=== PATIENT | male | born 1955 | race Hispanic/Latino ===

== ENCOUNTER 2018-01-27 08:01 | Inpatient (IN) | payer MEDICARE, OTHER, MEDICAID ==
[2018-01-27 09:09] LABS: BASO % 0.7 % (0.0-1.0); EOS # 0.2 10^3/uL (0.0-0.50); EOS % 2.6 % (0.0-3.0); HEMATOCRIT 32.8 % (42.0-52.0); HEMOGLOBIN 10.1 g/dl (13.5-17.5); IMMATURE GRANULOCYTE % 0.3 % (0-3.0); LYMPH # 0.7 10^3/uL (1.5-4.5); LYMPH % 11.6 % (24.0-44.0); MEAN CORPUSCULAR HEMOGLOBIN 27.4 pg (27.0-33.0); MEAN CORPUSCULAR HGB CONC 30.8 g/dl (32.0-36.5); MEAN CORPUSCULAR VOLUME 89.1 fl (80.0-96.0); MONO # 0.5 10^3/uL (0.0-0.8); MONO % 9.3 % (0.0-5.0); NEUTROPHILS # 4.4 10^3/uL (1.8-7.7); NEUTROPHILS % 75.5 % (36.0-66.0); PLATELET COUNT, AUTOMATED 265 10^3/uL (150-450); RED BLOOD COUNT 3.68 10^6/uL (4.30-6.10); RED CELL DISTRIBUTION WIDTH 20.9 % (11.5-14.5); VENOUS BASE EXCESS -7.6 (-2.0-2.0); VENOUS HCO3 19.5 MEQ/L (23.0-27.0); VENOUS PARTIAL PRESSURE CO2 46.5 mmHg (38.0-50.0); VENOUS PARTIAL PRESSURE O2 36.6 mmHg (30.0-50.0); VENOUS STANDARD HCO3 17.5 MEQ/L; VENOUS TOTAL CO2 20.9 MEQ/L (24.0-28.0); WHITE BLOOD COUNT 5.8 10^3/uL (4.0-10.0)
[2018-01-27 09:21] LABS: LACTIC ACID SEPSIS PROTOCOL 1.7 MMOL/L (0.4-2.0)
[2018-01-27 09:29] LABS: ANION GAP 14 MEQ/L (8-16); BLOOD UREA NITROGEN 124 MG/DL (7-18); CALCIUM LEVEL 8.2 MG/DL (8.8-10.2); CARBON DIOXIDE LEVEL 21 MEQ/L (21-32); CHLORIDE LEVEL 102 MEQ/L (98-107); CPK CREATINE PHOSPHOKINASE 106 U/L (39-308); GLOMERULAR FILTRATION RATE 4.5 (>49); GLUCOSE, FASTING 121 MG/DL (70-100); MB/CK RELATIVE INDEX 20.19 (< OR =4); SODIUM LEVEL 137 MEQ/L (136-145); TROPONIN I < 0.02 NG/ML (< 0.10)
[2018-01-27 09:32] LABS: INR 1.38; PROTHROMBIN TIME 17.2 SECONDS (12.1-14.4)
[2018-01-27 09:33] LABS: PARTIAL THROMBOPLASTIN TIME 40.8 SECONDS (25.4-37.6)
[2018-01-27 09:46] LABS: ERYTHROCYTE SEDIMENTATION RATE 85 mm/hr (0-20)
[2018-01-27 10:52] LABS: BEDSIDE GLUCOSE 98 MG/DL (80-115)
[2018-01-27] MEDS: DEXTROSE 50% 50 ML SYRINGE IV ×4 (10:55→18:44)
[2018-01-27] MEDS: HumuLIN R (REGULAR) INSULIN (NovoLIN R) **100U/ML** PER UNIT IV (10:55)
[2018-01-27] MEDS: CALCIUM CHLORIDE 10% 1 GM in D5W 100 ML IV (11:04)
[2018-01-27] MEDS ORDERED: GLUCOSE 4 GM CHEW TABLET PO (11:15)
[2018-01-27] MEDS ORDERED: GLUCAGON FOR INJ 1 MG VIAL (J1610) SC (11:15)
[2018-01-27 12:29] LABS: ESTIMATED AVERAGE GLUCOSE 134 MG/DL (60-110); HEMOGLOBIN A1c 6.3 %
[2018-01-27] MEDS ORDERED: SLF 3 ML SYR IV (12:30)
[2018-01-27 12:31] LABS: BEDSIDE GLUCOSE 47 MG/DL (80-115)
[2018-01-27] MEDS: HumaLOG INSULIN (NovoLOG) PER UNIT SC (12:37)
[2018-01-27] MEDS: LISINOPRIL 10 MG TAB PO (12:37)
[2018-01-27] MEDS: ASPIRIN 81 MG ENTERIC TAB PO (12:37)
[2018-01-27] MEDS: CLOPIDOGREL 75 MG TAB PO (12:37)
[2018-01-27] MEDS: METOPROLOL SUCC (TopROL XL) 50MG **XL** TAB PO (12:38)
[2018-01-27] MEDS: HEPARIN SOD (PORCINE) 5000 UNITS/ML VIAL SQ ×2 (12:38→20:31)
[2018-01-27] MEDS: SLF 3 ML SYR IV ×2 (14:10→20:31)
[2018-01-27] MEDS: HEPARIN 1,000 UNITS/ML 10ML VIAL (FOR RADIOLOGY& DIALYSIS ONLY) XX (16:30)
[2018-01-27] MEDS: HEPARIN 1,000 UNITS/ML 10ML VIAL (FOR RADIOLOGY& DIALYSIS ONLY) IV (16:30)
[2018-01-27 18:30] LABS: BEDSIDE GLUCOSE 52 MG/DL (80-115)
[2018-01-27] MEDS: (RENVELA) SEVELAMER **CARBONate** 800 MG TAB PO (18:44)
[2018-01-27 20:41] LABS: BEDSIDE GLUCOSE 142 MG/DL (80-115)
[2018-01-27] MEDS ORDERED: HumaLOG INSULIN (NovoLOG) PER UNIT SC (21:00)
[2018-01-27 22:51] LABS: PHOSPHORUS LEVEL 9.8 MG/DL (2.5-4.9)
[2018-01-27 23:19] LABS: BEDSIDE GLUCOSE 133 MG/DL (80-115)
[2018-01-28 01:41] LABS: BEDSIDE GLUCOSE 120 MG/DL (80-115)
[2018-01-28 05:41] LABS: HEMATOCRIT 30.4 % (42.0-52.0); HEMOGLOBIN 9.8 g/dl (13.5-17.5); MEAN CORPUSCULAR HEMOGLOBIN 27.9 pg (27.0-33.0); MEAN CORPUSCULAR HGB CONC 32.2 g/dl (32.0-36.5); MEAN CORPUSCULAR VOLUME 86.6 fl (80.0-96.0); PLATELET COUNT, AUTOMATED 231 10^3/uL (150-450); RED BLOOD COUNT 3.51 10^6/uL (4.30-6.10); RED CELL DISTRIBUTION WIDTH 20.8 % (11.5-14.5); WHITE BLOOD COUNT 5.5 10^3/uL (4.0-10.0)
[2018-01-28] MEDS: SLF 3 ML SYR IV ×3 (05:59→21:46)
[2018-01-28] MEDS: HEPARIN SOD (PORCINE) 5000 UNITS/ML VIAL SQ ×3 (06:00→21:46)
[2018-01-28 06:07] LABS: ALBUMIN 2.3 GM/DL (3.2-5.2); ALBUMIN/GLOBULIN RATIO 0.35 (1.00-1.93); ALKALINE PHOSPHATASE 344 U/L (45-117); ALT/SGPT 18 U/L (12-78); ANION GAP 10 MEQ/L (8-16); AST/SGOT 17 U/L (7-37); BILIRUBIN,DIRECT 0.5 MG/DL (0.0-0.2); BILIRUBIN,TOTAL 0.8 MG/DL (0.2-1.0); BLOOD UREA NITROGEN 53 MG/DL (7-18); CALCIUM LEVEL 8.3 MG/DL (8.8-10.2); CARBON DIOXIDE LEVEL 26 MEQ/L (21-32); CHLORIDE LEVEL 103 MEQ/L (98-107); CREATININE FOR GFR 7.25 MG/DL (0.70-1.30); GLOMERULAR FILTRATION RATE 8.2 (>49); GLUCOSE, FASTING 84 MG/DL (70-100); MAGNESIUM LEVEL 2.4 MG/DL (1.8-2.4); POTASSIUM SERUM 4.8 MEQ/L (3.5-5.1); SODIUM LEVEL 139 MEQ/L (136-145); TOTAL PROTEIN 8.9 GM/DL (6.4-8.2)
[2018-01-28] MEDS: (RENVELA) SEVELAMER **CARBONate** 800 MG TAB PO ×3 (08:53→17:07)
[2018-01-28] MEDS: CLOPIDOGREL 75 MG TAB PO (08:53)
[2018-01-28] MEDS: METOPROLOL SUCC (TopROL XL) 50MG **XL** TAB PO (08:53)
[2018-01-28] MEDS: ASPIRIN 81 MG ENTERIC TAB PO (08:55)
[2018-01-28] MEDS: LISINOPRIL 10 MG TAB PO (08:55)
[2018-01-28] MEDS: SANTYL OINT 30GM TOP (09:00)
[2018-01-28] MEDS: ACETAMINOPHEN TAB 650MG DOSE (2X325MG) PO (09:49)
[2018-01-28] MEDS ORDERED: VANCOMYCIN HCL 1,000 MG, VIAL MATE ADAPTER 1 EACH in D5W 250 ML IV (14:00)
[2018-01-28 14:59] LABS: BEDSIDE GLUCOSE 132 MG/DL (80-115)
[2018-01-28] MEDS: PIPERACILLIN/TAZOBACTAM SOD 2.25 GM in D5W MINI-BAG PLUS 50 ML IV (15:39)
[2018-01-28] MEDS: ONDANSETRON 4MG/2ML VIAL (J2405) IV (16:12)
[2018-01-28] MEDS: VANCOMYCIN HCL 1,000 MG, VIAL MATE ADAPTER 1 EACH in D5W 250 ML IV (17:07)
[2018-01-28 18:57] LABS: BEDSIDE GLUCOSE 157 MG/DL (80-115)
[2018-01-28 23:51] LABS: BEDSIDE GLUCOSE 75 MG/DL (80-115)
[2018-01-29 00:23] LABS: BEDSIDE GLUCOSE 120 MG/DL (80-115)
[2018-01-29] MEDS: PIPERACILLIN/TAZOBACTAM SOD 2.25 GM in D5W MINI-BAG PLUS 50 ML IV ×2 (04:25→16:00)
[2018-01-29] MEDS: SLF 3 ML SYR IV ×3 (05:35→21:22)
[2018-01-29] MEDS: HEPARIN SOD (PORCINE) 5000 UNITS/ML VIAL SQ ×3 (05:36→21:22)
[2018-01-29 06:03] LABS: HEMATOCRIT 33.8 % (42.0-52.0); HEMOGLOBIN 10.3 g/dl (13.5-17.5); MEAN CORPUSCULAR HEMOGLOBIN 27.5 pg (27.0-33.0); MEAN CORPUSCULAR HGB CONC 30.5 g/dl (32.0-36.5); MEAN CORPUSCULAR VOLUME 90.4 fl (80.0-96.0); PLATELET COUNT, AUTOMATED 203 10^3/uL (150-450); RED BLOOD COUNT 3.74 10^6/uL (4.30-6.10); RED CELL DISTRIBUTION WIDTH 21.6 % (11.5-14.5); WHITE BLOOD COUNT 4.1 10^3/uL (4.0-10.0)
[2018-01-29 06:50] LABS: ALBUMIN 2.1 GM/DL (3.2-5.2); ALBUMIN/GLOBULIN RATIO 0.32 (1.00-1.93); ALKALINE PHOSPHATASE 311 U/L (45-117); ALT/SGPT 18 U/L (12-78); ANION GAP 13 MEQ/L (8-16); AST/SGOT 24 U/L (7-37); BILIRUBIN,DIRECT 0.4 MG/DL (0.0-0.2); BILIRUBIN,TOTAL 0.7 MG/DL (0.2-1.0); BLOOD UREA NITROGEN 59 MG/DL (7-18); CALCIUM LEVEL 8.4 MG/DL (8.8-10.2); CARBON DIOXIDE LEVEL 20 MEQ/L (21-32); CHLORIDE LEVEL 104 MEQ/L (98-107); CREATININE FOR GFR 8.07 MG/DL (0.70-1.30); GLOMERULAR FILTRATION RATE 7.3 (>49); GLUCOSE, FASTING 77 MG/DL (70-100); MAGNESIUM LEVEL 2.6 MG/DL (1.8-2.4); POTASSIUM SERUM 5.4 MEQ/L (3.5-5.1); SODIUM LEVEL 137 MEQ/L (136-145); TOTAL PROTEIN 8.7 GM/DL (6.4-8.2)
[2018-01-29] MEDS: (RENVELA) SEVELAMER **CARBONate** 800 MG TAB PO ×4 (08:00→18:00)
[2018-01-29] MEDS: CLOPIDOGREL 75 MG TAB PO ×2 (09:00→09:01)
[2018-01-29] MEDS: ASPIRIN 81 MG ENTERIC TAB PO ×2 (09:00→09:01)
[2018-01-29] MEDS: METOPROLOL SUCC (TopROL XL) 50MG **XL** TAB PO ×2 (09:00)
[2018-01-29] MEDS: LISINOPRIL 10 MG TAB PO ×2 (09:00→09:01)
[2018-01-29] MEDS: SANTYL OINT 30GM TOP (09:01)
[2018-01-29] MEDS: HEPARIN 1,000 UNITS/ML 10ML VIAL (FOR RADIOLOGY& DIALYSIS ONLY) XX (12:00)
[2018-01-29] MEDS: HEPARIN 1,000 UNITS/ML 10ML VIAL (FOR RADIOLOGY& DIALYSIS ONLY) IV (12:00)
[2018-01-29 12:06] LABS: BEDSIDE GLUCOSE 101 MG/DL (80-115)
[2018-01-29] MEDS: **VANCO AFTER HD** MISC XX (16:00)
[2018-01-29 20:07] LABS: BEDSIDE GLUCOSE 140 MG/DL (80-115)
[2018-01-30] MEDS: PIPERACILLIN/TAZOBACTAM SOD 2.25 GM in D5W MINI-BAG PLUS 50 ML IV ×2 (03:47→15:19)
[2018-01-30 06:02] LABS: HEMATOCRIT 30.9 % (42.0-52.0); HEMOGLOBIN 9.3 g/dl (13.5-17.5); MEAN CORPUSCULAR HEMOGLOBIN 27.1 pg (27.0-33.0); MEAN CORPUSCULAR HGB CONC 30.1 g/dl (32.0-36.5); MEAN CORPUSCULAR VOLUME 90.1 fl (80.0-96.0); PLATELET COUNT, AUTOMATED 215 10^3/uL (150-450); RED BLOOD COUNT 3.43 10^6/uL (4.30-6.10); RED CELL DISTRIBUTION WIDTH 21.2 % (11.5-14.5); WHITE BLOOD COUNT 5.5 10^3/uL (4.0-10.0)
[2018-01-30] MEDS: SLF 3 ML SYR IV ×3 (06:23→21:10)
[2018-01-30] MEDS: HEPARIN SOD (PORCINE) 5000 UNITS/ML VIAL SQ ×3 (06:23→21:10)
[2018-01-30 06:38] LABS: ALBUMIN 2.1 GM/DL (3.2-5.2); ALBUMIN/GLOBULIN RATIO 0.33 (1.00-1.93); ALKALINE PHOSPHATASE 340 U/L (45-117); ALT/SGPT 13 U/L (12-78); ANION GAP 8 MEQ/L (8-16); AST/SGOT 18 U/L (7-37); BILIRUBIN,DIRECT 0.5 MG/DL (0.0-0.2); BILIRUBIN,TOTAL 0.8 MG/DL (0.2-1.0); BLOOD UREA NITROGEN 30 MG/DL (7-18); CALCIUM LEVEL 7.9 MG/DL (8.8-10.2); CARBON DIOXIDE LEVEL 28 MEQ/L (21-32); CHLORIDE LEVEL 102 MEQ/L (98-107); CREATININE FOR GFR 5.25 MG/DL (0.70-1.30); GLUCOSE, FASTING 143 MG/DL (70-100); MAGNESIUM LEVEL 2.2 MG/DL (1.8-2.4); POTASSIUM SERUM 4.4 MEQ/L (3.5-5.1); SODIUM LEVEL 138 MEQ/L (136-145); TOTAL PROTEIN 8.5 GM/DL (6.4-8.2)
[2018-01-30] MEDS: (RENVELA) SEVELAMER **CARBONate** 800 MG TAB PO ×3 (07:46→17:05)
[2018-01-30] MEDS: METOPROLOL SUCC (TopROL XL) 50MG **XL** TAB PO (08:41)
[2018-01-30] MEDS: LISINOPRIL 10 MG TAB PO (08:42)
[2018-01-30] MEDS: SANTYL OINT 30GM TOP (08:42)
[2018-01-30] MEDS: ASPIRIN 81 MG ENTERIC TAB PO (08:42)
[2018-01-30] MEDS: CLOPIDOGREL 75 MG TAB PO (08:42)
[2018-01-30] MEDS: **VANCO AFTER HD** MISC XX (15:20)
[2018-01-30] MEDS ORDERED: DARBEPOETIN 100 MCG/0.5 ML *DIALYSIS* SYRINGE (J0882) IV (15:45)
[2018-01-31] MEDS: PIPERACILLIN/TAZOBACTAM SOD 2.25 GM in D5W MINI-BAG PLUS 50 ML IV ×2 (04:33→16:31)
[2018-01-31] MEDS: HEPARIN SOD (PORCINE) 5000 UNITS/ML VIAL SQ ×3 (06:11→21:43)
[2018-01-31] MEDS: SLF 3 ML SYR IV ×3 (06:12→21:44)
[2018-01-31] MEDS: (RENVELA) SEVELAMER **CARBONate** 800 MG TAB PO ×3 (06:12→18:05)
[2018-01-31] MEDS: CLOPIDOGREL 75 MG TAB PO (06:13)
[2018-01-31] MEDS: METOPROLOL SUCC (TopROL XL) 50MG **XL** TAB PO (06:13)
[2018-01-31 06:23] LABS: HEMATOCRIT 31.2 % (42.0-52.0); HEMOGLOBIN 9.8 g/dl (13.5-17.5); MEAN CORPUSCULAR HEMOGLOBIN 27.7 pg (27.0-33.0); MEAN CORPUSCULAR HGB CONC 31.4 g/dl (32.0-36.5); MEAN CORPUSCULAR VOLUME 88.1 fl (80.0-96.0); PLATELET COUNT, AUTOMATED 226 10^3/uL (150-450); RED BLOOD COUNT 3.54 10^6/uL (4.30-6.10); RED CELL DISTRIBUTION WIDTH 21.2 % (11.5-14.5)
[2018-01-31 06:48] LABS: ALBUMIN 2.2 GM/DL (3.2-5.2); ALBUMIN/GLOBULIN RATIO 0.34 (1.00-1.93); ALKALINE PHOSPHATASE 316 U/L (45-117); ALT/SGPT 13 U/L (12-78); ANION GAP 11 MEQ/L (8-16); AST/SGOT 21 U/L (7-37); BILIRUBIN,DIRECT 0.5 MG/DL (0.0-0.2); BILIRUBIN,TOTAL 0.8 MG/DL (0.2-1.0); BLOOD UREA NITROGEN 40 MG/DL (7-18); C REACTIVE PROTEIN QUANTITATIV 8.19 MG/DL (0.00-0.30); CALCIUM LEVEL 8.4 MG/DL (8.8-10.2); CARBON DIOXIDE LEVEL 27 MEQ/L (21-32); CHLORIDE LEVEL 101 MEQ/L (98-107); CREATININE FOR GFR 6.55 MG/DL (0.70-1.30); GLOMERULAR FILTRATION RATE 9.3 (>49); GLUCOSE, FASTING 80 MG/DL (70-100); MAGNESIUM LEVEL 2.5 MG/DL (1.8-2.4); POTASSIUM SERUM 4.8 MEQ/L (3.5-5.1); SODIUM LEVEL 139 MEQ/L (136-145); TOTAL PROTEIN 8.7 GM/DL (6.4-8.2); VANCOMYCIN RANDOM 10.5 UG/ML
[2018-01-31] MEDS: HEPARIN 1,000 UNITS/ML 10ML VIAL (FOR RADIOLOGY& DIALYSIS ONLY) IV (08:25)
[2018-01-31] MEDS: HEPARIN 1,000 UNITS/ML 10ML VIAL (FOR RADIOLOGY& DIALYSIS ONLY) XX (10:45)
[2018-01-31] MEDS: ASPIRIN 81 MG ENTERIC TAB PO (13:11)
[2018-01-31] MEDS: LISINOPRIL 10 MG TAB PO (13:11)
[2018-01-31] MEDS: SANTYL OINT 30GM TOP (13:12)
[2018-01-31] MEDS: ATORVASTATIN 20 MG TAB PO (15:36)
[2018-01-31] MEDS: VANCOMYCIN HCL 1,000 MG, VIAL MATE ADAPTER 1 EACH in D5W 250 ML IV (18:01)
[2018-01-31] MEDS: **VANCO AFTER HD** MISC XX (18:05)
[2018-02-01] MEDS: PIPERACILLIN/TAZOBACTAM SOD 2.25 GM in D5W MINI-BAG PLUS 50 ML IV ×2 (04:12→17:02)
[2018-02-01] MEDS: SLF 3 ML SYR IV ×3 (05:03→22:57)
[2018-02-01] MEDS: HEPARIN SOD (PORCINE) 5000 UNITS/ML VIAL SQ ×3 (05:03→22:57)
[2018-02-01 06:00] LABS: HEMATOCRIT 32.7 % (42.0-52.0); MEAN CORPUSCULAR HEMOGLOBIN 27.9 pg (27.0-33.0); MEAN CORPUSCULAR HGB CONC 30.6 g/dl (32.0-36.5); MEAN CORPUSCULAR VOLUME 91.1 fl (80.0-96.0); PLATELET COUNT, AUTOMATED 193 10^3/uL (150-450); RED BLOOD COUNT 3.59 10^6/uL (4.30-6.10); RED CELL DISTRIBUTION WIDTH 21.4 % (11.5-14.5); WHITE BLOOD COUNT 4.8 10^3/uL (4.0-10.0)
[2018-02-01 06:27] LABS: ALBUMIN 2.2 GM/DL (3.2-5.2); ALBUMIN/GLOBULIN RATIO 0.33 (1.00-1.93); ALKALINE PHOSPHATASE 289 U/L (45-117); ALT/SGPT 12 U/L (12-78); ANION GAP 9 MEQ/L (8-16); AST/SGOT 17 U/L (7-37); BILIRUBIN,DIRECT 0.5 MG/DL (0.0-0.2); BILIRUBIN,TOTAL 0.8 MG/DL (0.2-1.0); BLOOD UREA NITROGEN 25 MG/DL (7-18); C REACTIVE PROTEIN QUANTITATIV 8.01 MG/DL (0.00-0.30); CALCIUM LEVEL 8.5 MG/DL (8.8-10.2); CARBON DIOXIDE LEVEL 29 MEQ/L (21-32); CHLORIDE LEVEL 103 MEQ/L (98-107); CREATININE FOR GFR 5.03 MG/DL (0.70-1.30); GLOMERULAR FILTRATION RATE 12.6 (>49); GLUCOSE, FASTING 122 MG/DL (70-100); MAGNESIUM LEVEL 2.5 MG/DL (1.8-2.4); POTASSIUM SERUM 4.1 MEQ/L (3.5-5.1); SODIUM LEVEL 141 MEQ/L (136-145); TOTAL PROTEIN 8.8 GM/DL (6.4-8.2)
[2018-02-01] MEDS: (RENVELA) SEVELAMER **CARBONate** 800 MG TAB PO ×3 (08:01→17:02)
[2018-02-01] MEDS: ASPIRIN 81 MG ENTERIC TAB PO (08:01)
[2018-02-01] MEDS: METOPROLOL SUCC (TopROL XL) 50MG **XL** TAB PO (08:02)
[2018-02-01] MEDS: SANTYL OINT 30GM TOP (08:02)
[2018-02-01] MEDS: LISINOPRIL 10 MG TAB PO (08:02)
[2018-02-01] MEDS: CLOPIDOGREL 75 MG TAB PO (08:02)
[2018-02-01] MEDS: ATORVASTATIN 20 MG TAB PO (08:02)
[2018-02-01] MEDS: LACTOBACILLUS ACIDOPHILUS CAP (BACID) PO ×2 (12:28→17:02)
[2018-02-02] MEDS: ACETAMINOPHEN TAB 650MG DOSE (2X325MG) PO (00:34)
[2018-02-02] MEDS: PIPERACILLIN/TAZOBACTAM SOD 2.25 GM in D5W MINI-BAG PLUS 50 ML IV ×2 (03:38→17:34)
[2018-02-02 06:16] LABS: HEMATOCRIT 30.9 % (42.0-52.0); HEMOGLOBIN 9.4 g/dl (13.5-17.5); MEAN CORPUSCULAR HEMOGLOBIN 27.7 pg (27.0-33.0); MEAN CORPUSCULAR HGB CONC 30.4 g/dl (32.0-36.5); MEAN CORPUSCULAR VOLUME 91.2 fl (80.0-96.0); PLATELET COUNT, AUTOMATED 176 10^3/uL (150-450); RED BLOOD COUNT 3.39 10^6/uL (4.30-6.10); RED CELL DISTRIBUTION WIDTH 21.2 % (11.5-14.5); WHITE BLOOD COUNT 5.5 10^3/uL (4.0-10.0)
[2018-02-02 06:45] LABS: ALBUMIN 2.1 GM/DL (3.2-5.2); ALBUMIN/GLOBULIN RATIO 0.38 (1.00-1.93); ALKALINE PHOSPHATASE 251 U/L (45-117); ALT/SGPT 11 U/L (12-78); ANION GAP 10 MEQ/L (8-16); AST/SGOT 13 U/L (7-37); BILIRUBIN,DIRECT 0.5 MG/DL (0.0-0.2); BILIRUBIN,TOTAL 0.7 MG/DL (0.2-1.0); BLOOD UREA NITROGEN 32 MG/DL (7-18); C REACTIVE PROTEIN QUANTITATIV 6.34 MG/DL (0.00-0.30); CALCIUM LEVEL 8.3 MG/DL (8.8-10.2); CARBON DIOXIDE LEVEL 28 MEQ/L (21-32); CHLORIDE LEVEL 104 MEQ/L (98-107); CREATININE FOR GFR 6.35 MG/DL (0.70-1.30); GLOMERULAR FILTRATION RATE 9.6 (>49); GLUCOSE, FASTING 95 MG/DL (70-100); MAGNESIUM LEVEL 2.6 MG/DL (1.8-2.4); POTASSIUM SERUM 4.3 MEQ/L (3.5-5.1); SODIUM LEVEL 142 MEQ/L (136-145); TOTAL PROTEIN 7.7 GM/DL (6.4-8.2)
[2018-02-02] MEDS: HEPARIN SOD (PORCINE) 5000 UNITS/ML VIAL SQ ×3 (06:57→22:58)
[2018-02-02] MEDS: ASPIRIN 81 MG ENTERIC TAB PO (06:58)
[2018-02-02] MEDS: SLF 3 ML SYR IV ×3 (06:58→22:58)
[2018-02-02] MEDS: ATORVASTATIN 20 MG TAB PO (06:59)
[2018-02-02] MEDS: LISINOPRIL 10 MG TAB PO (06:59)
[2018-02-02] MEDS: CLOPIDOGREL 75 MG TAB PO (06:59)
[2018-02-02] MEDS: METOPROLOL SUCC (TopROL XL) 50MG **XL** TAB PO (07:00)
[2018-02-02] MEDS: LACTOBACILLUS ACIDOPHILUS CAP (BACID) PO ×3 (08:11→17:40)
[2018-02-02] MEDS: (RENVELA) SEVELAMER **CARBONate** 800 MG TAB PO ×3 (08:12→17:40)
[2018-02-02 11:11] LABS: FERRITIN 90 NG/ML (26-388); IRON (FE) 23 UG/DL (65-175); PERCENT SATURATION 14.3 % (19.7-50.0); TOTAL IRON BINDING CAPACITY 161 UG/DL (250-450)
[2018-02-02] MEDS: HEPARIN 1,000 UNITS/ML 10ML VIAL (FOR RADIOLOGY& DIALYSIS ONLY) XX (12:30)
[2018-02-02] MEDS: FERROUS SULFATE 325MG TAB PO (17:40)
[2018-02-02] MEDS: CEPACOL LOZENGE PO (22:58)
[2018-02-03] MEDS: PIPERACILLIN/TAZOBACTAM SOD 2.25 GM in D5W MINI-BAG PLUS 50 ML IV ×2 (04:58→16:54)
[2018-02-03] MEDS: SLF 3 ML SYR IV ×3 (05:00→21:43)
[2018-02-03] MEDS: HEPARIN SOD (PORCINE) 5000 UNITS/ML VIAL SQ ×3 (05:00→21:43)
[2018-02-03 06:33] LABS: HEMATOCRIT 31.8 % (42.0-52.0); HEMOGLOBIN 9.4 g/dl (13.5-17.5); MEAN CORPUSCULAR HEMOGLOBIN 27.1 pg (27.0-33.0); MEAN CORPUSCULAR HGB CONC 29.6 g/dl (32.0-36.5); MEAN CORPUSCULAR VOLUME 91.6 fl (80.0-96.0); PLATELET COUNT, AUTOMATED 200 10^3/uL (150-450); RED BLOOD COUNT 3.47 10^6/uL (4.30-6.10); WHITE BLOOD COUNT 6.6 10^3/uL (4.0-10.0)
[2018-02-03 07:10] LABS: ALBUMIN/GLOBULIN RATIO 0.31 (1.00-1.93); ALKALINE PHOSPHATASE 269 U/L (45-117); ALT/SGPT 11 U/L (12-78); ANION GAP 9 MEQ/L (8-16); AST/SGOT 17 U/L (7-37); BILIRUBIN,DIRECT 0.5 MG/DL (0.0-0.2); BILIRUBIN,TOTAL 0.6 MG/DL (0.2-1.0); BLOOD UREA NITROGEN 18 MG/DL (7-18); C REACTIVE PROTEIN QUANTITATIV 6.38 MG/DL (0.00-0.30); CALCIUM LEVEL 7.9 MG/DL (8.8-10.2); CARBON DIOXIDE LEVEL 27 MEQ/L (21-32); CHLORIDE LEVEL 102 MEQ/L (98-107); CREATININE FOR GFR 4.42 MG/DL (0.70-1.30); GLOMERULAR FILTRATION RATE 14.6 (>49); GLUCOSE, FASTING 84 MG/DL (70-100); MAGNESIUM LEVEL 2.3 MG/DL (1.8-2.4); POTASSIUM SERUM 4.1 MEQ/L (3.5-5.1); SODIUM LEVEL 138 MEQ/L (136-145); TOTAL PROTEIN 8.5 GM/DL (6.4-8.2)
[2018-02-03] MEDS: CLOPIDOGREL 75 MG TAB PO (08:21)
[2018-02-03] MEDS: (RENVELA) SEVELAMER **CARBONate** 800 MG TAB PO ×3 (08:21→17:48)
[2018-02-03] MEDS: LACTOBACILLUS ACIDOPHILUS CAP (BACID) PO ×3 (08:21→17:48)
[2018-02-03] MEDS: ASPIRIN 81 MG ENTERIC TAB PO (08:21)
[2018-02-03] MEDS: FERROUS SULFATE 325MG TAB PO (08:21)
[2018-02-03] MEDS: ATORVASTATIN 20 MG TAB PO (08:21)
[2018-02-03] MEDS: LISINOPRIL 10 MG TAB PO (08:22)
[2018-02-03] MEDS: METOPROLOL SUCC (TopROL XL) 50MG **XL** TAB PO (08:22)
[2018-02-03] MEDS: CEPACOL LOZENGE PO (08:31)
[2018-02-03 12:51] LABS: PHOSPHORUS LEVEL 4.8 MG/DL (2.5-4.9)
[2018-02-04] MEDS: SLF 3 ML SYR IV ×2 (04:57→13:16)
[2018-02-04] MEDS: HEPARIN SOD (PORCINE) 5000 UNITS/ML VIAL SQ ×2 (04:57→13:16)
[2018-02-04] MEDS: PIPERACILLIN/TAZOBACTAM SOD 2.25 GM in D5W MINI-BAG PLUS 50 ML IV ×2 (04:57→16:00)
[2018-02-04] MEDS: LACTOBACILLUS ACIDOPHILUS CAP (BACID) PO ×2 (08:07→12:10)
[2018-02-04] MEDS: (RENVELA) SEVELAMER **CARBONate** 800 MG TAB PO ×2 (08:07→12:09)
[2018-02-04] MEDS: FERROUS SULFATE 325MG TAB PO (08:08)
[2018-02-04] MEDS: ATORVASTATIN 20 MG TAB PO (08:08)
[2018-02-04] MEDS: ASPIRIN 81 MG ENTERIC TAB PO (08:08)
[2018-02-04] MEDS: CLOPIDOGREL 75 MG TAB PO (08:08)
[2018-02-04] MEDS: LISINOPRIL 10 MG TAB PO (08:09)
[2018-02-04] MEDS: METOPROLOL SUCC (TopROL XL) 50MG **XL** TAB PO (08:09)
[2018-02-04 09:19] LABS: BASO # 0.1 10^3/uL (0.0-0.2); BASO % 0.9 % (0.0-1.0); EOS # 0.2 10^3/uL (0.0-0.50); EOS % 2.7 % (0.0-3.0); HEMATOCRIT 30.4 % (42.0-52.0); HEMOGLOBIN 9.3 g/dl (13.5-17.5); IMMATURE GRANULOCYTE % 0.5 % (0-3.0); LYMPH # 0.6 10^3/uL (1.5-4.5); LYMPH % 10.1 % (24.0-44.0); MEAN CORPUSCULAR HEMOGLOBIN 27.7 pg (27.0-33.0); MEAN CORPUSCULAR HGB CONC 30.6 g/dl (32.0-36.5); MEAN CORPUSCULAR VOLUME 90.5 fl (80.0-96.0); MONO # 0.5 10^3/uL (0.0-0.8); MONO % 7.9 % (0.0-5.0); NEUTROPHILS % 77.9 % (36.0-66.0); PLATELET COUNT, AUTOMATED 229 10^3/uL (150-450); RED BLOOD COUNT 3.36 10^6/uL (4.30-6.10); RED CELL DISTRIBUTION WIDTH 20.8 % (11.5-14.5); WHITE BLOOD COUNT 6.4 10^3/uL (4.0-10.0)
[2018-02-04 09:45] LABS: ALBUMIN 2.1 GM/DL (3.2-5.2); ALBUMIN/GLOBULIN RATIO 0.33 (1.00-1.93); ALKALINE PHOSPHATASE 229 U/L (45-117); ALT/SGPT 10 U/L (12-78); ANION GAP 11 MEQ/L (8-16); AST/SGOT 15 U/L (7-37); BILIRUBIN,TOTAL 0.7 MG/DL (0.2-1.0); BLOOD UREA NITROGEN 28 MG/DL (7-18); CALCIUM LEVEL 8.4 MG/DL (8.8-10.2); CARBON DIOXIDE LEVEL 27 MEQ/L (21-32); CHLORIDE LEVEL 101 MEQ/L (98-107); CREATININE FOR GFR 5.95 MG/DL (0.70-1.30); GLOMERULAR FILTRATION RATE 10.4 (>49); GLUCOSE, FASTING 132 MG/DL (70-100); MAGNESIUM LEVEL 2.7 MG/DL (1.8-2.4); PHOSPHORUS LEVEL 5.2 MG/DL (2.5-4.9); SODIUM LEVEL 139 MEQ/L (136-145); TOTAL PROTEIN 8.4 GM/DL (6.4-8.2)
== END 2018-02-04 17:00 | disposition home health service (06) | DRG 291 ==
LOC: M MSPAV 01-31 18:40 → M ED 08:01 → M ED INP 11:14 → M PCU 12:10
PROC: 5A1D70Z Performance of Urinary Filtration, Intermittent, Less than 6 Hours Per Day (ICD-10-PCS; 2018-01-27)
PROC: 0HBNXZZ Excision of Left Foot Skin, External Approach (ICD-10-PCS; principal; 2018-02-01)
PROC: 0HBMXZZ Excision of Right Foot Skin, External Approach (ICD-10-PCS; 2018-02-01)
DX: I13.2 Hypertensive heart and chronic kidney disease with heart failure and with stage 5 chronic kidney disease, or end stage renal disease (principal); N18.6 End stage renal disease; I50.22 Chronic systolic (congestive) heart failure; N25.81 Secondary hyperparathyroidism of renal origin; T87.43 Infection of amputation stump, right lower extremity; T87.44 Infection of amputation stump, left lower extremity; M86.672 Other chronic osteomyelitis, left ankle and foot; E78.5 Hyperlipidemia, unspecified; I25.10 Atherosclerotic heart disease of native coronary artery without angina pectoris; E11.51 Type 2 diabetes mellitus with diabetic peripheral angiopathy without gangrene; E11.22 Type 2 diabetes mellitus with diabetic chronic kidney disease; E87.5 Hyperkalemia; Z66 Do not resuscitate; D63.1 Anemia in chronic kidney disease; K21.9 Gastro-esophageal reflux disease without esophagitis; B96.89 Other specified bacterial agents as the cause of diseases classified elsewhere; E11.69 Type 2 diabetes mellitus with other specified complication; B96.5 Pseudomonas (aeruginosa) (mallei) (pseudomallei) as the cause of diseases classified elsewhere; E11.610 Type 2 diabetes mellitus with diabetic neuropathic arthropathy; Z91.15 Patient's noncompliance with renal dialysis; Z79.82 Long term (current) use of aspirin; Z79.899 Other long term (current) drug therapy; Z99.2 Dependence on renal dialysis; Z88.8 Allergy status to other drugs, medicaments and biological substances; Z98.62 Peripheral vascular angioplasty status; Z89.432 Acquired absence of left foot; Z89.421 Acquired absence of other right toe(s); Z79.02 Long term (current) use of antithrombotics/antiplatelets; Y83.5 Amputation of limb(s) as the cause of abnormal reaction of the patient, or of later complication, without mention of misadventure at the time of the procedure

== ENCOUNTER → 2018-02-27 | Outpatient (REF) | payer MEDICARE, OTHER, MEDICAID ==
[2018-02-27 18:14] LABS: ESTIMATED AVERAGE GLUCOSE 114 MG/DL (60-110); HEMOGLOBIN A1c 5.6 %
== END ==
LOC: M LAB REF 17:27
DX: E11.621 Type 2 diabetes mellitus with foot ulcer (principal)
CPT/HCPCS: 83036

== ENCOUNTER → 2018-03-04 | Outpatient (REF) | payer MEDICARE, MEDICAID ==
[2018-03-04 13:19] LABS: BASO % 0.6 % (0.0-1.0); EOS # 0.2 10^3/uL (0.0-0.50); EOS % 4.2 % (0.0-3.0); HEMATOCRIT 32.6 % (42.0-52.0); HEMOGLOBIN 9.5 g/dl (13.5-17.5); IMMATURE GRANULOCYTE % 0.2 % (0-3.0); LYMPH # 0.6 10^3/uL (1.5-4.5); MEAN CORPUSCULAR HEMOGLOBIN 27.5 pg (27.0-33.0); MEAN CORPUSCULAR HGB CONC 29.1 g/dl (32.0-36.5); MEAN CORPUSCULAR VOLUME 94.2 fl (80.0-96.0); MONO # 0.5 10^3/uL (0.0-0.8); MONO % 8.8 % (0.0-5.0); NEUTROPHILS # 4.1 10^3/uL (1.8-7.7); NEUTROPHILS % 75.2 % (36.0-66.0); PLATELET COUNT, AUTOMATED 214 10^3/uL (150-450); RED BLOOD COUNT 3.46 10^6/uL (4.30-6.10); RED CELL DISTRIBUTION WIDTH 20.2 % (11.5-14.5); WHITE BLOOD COUNT 5.4 10^3/uL (4.0-10.0)
[2018-03-04 13:44] LABS: ERYTHROCYTE SEDIMENTATION RATE 75 mm/hr (0-20)
== END ==
LOC: M SFHCPLAZ 11:09
DX: L98.9 Disorder of the skin and subcutaneous tissue, unspecified (principal)
CPT/HCPCS: 86140

== ENCOUNTER → 2018-03-13 | Outpatient (CLI) | payer MEDICARE, OTHER | LOC: M RAD 12:09 | DX: E11.621 Type 2 diabetes mellitus with foot ulcer (principal); I70.201 Unspecified atherosclerosis of native arteries of extremities, right leg; Z95.828 Presence of other vascular implants and grafts; L97.424 Non-pressure chronic ulcer of left heel and midfoot with necrosis of bone; L97.812 Non-pressure chronic ulcer of other part of right lower leg with fat layer exposed; L97.519 Non-pressure chronic ulcer of other part of right foot with unspecified severity; I70.245 Atherosclerosis of native arteries of left leg with ulceration of other part of foot | CPT/HCPCS: C8913 ==

== ENCOUNTER → 2018-04-01 | Outpatient (REF) | payer MEDICARE, MEDICAID ==
[~2018-04-01] MED LIST: ASPI81TA85 PO; ASPI81TAEC PO; ATOR1TAB21 PO; CETI10TA PO; FAMO1TAB11 PO; FAMO1TAB25 PO; FERR1TAB8 PO; FERR325T3 PO; FLON1SPR NARES; LEVA250T13 PO; LEVO250T12 PO; LISI10TA4 PO; METO1TAB33 PO; METO1TAB7 PO; NEPHTAB PO; PLAV1TAB2 PO; SEVE800T3 PO; SPIR-10 PO
[2018-04-01 13:30] LABS: BASO % 0.8 % (0.0-1.0); EOS # 0.3 10^3/uL (0.0-0.50); EOS % 7.3 % (0.0-3.0); HEMATOCRIT 34.9 % (42.0-52.0); HEMOGLOBIN 10.8 g/dl (13.5-17.5); LYMPH # 0.5 10^3/uL (1.5-4.5); LYMPH % 14.4 % (24.0-44.0); MEAN CORPUSCULAR HEMOGLOBIN 28.8 pg (27.0-33.0); MEAN CORPUSCULAR HGB CONC 30.9 g/dl (32.0-36.5); MEAN CORPUSCULAR VOLUME 93.1 fl (80.0-96.0); MONO # 0.4 10^3/uL (0.0-0.8); MONO % 10.5 % (0.0-5.0); NEUTROPHILS # 2.3 10^3/uL (1.8-7.7); NEUTROPHILS % 66.2 % (36.0-66.0); PLATELET COUNT, AUTOMATED 134 10^3/uL (150-450); RED BLOOD COUNT 3.75 10^6/uL (4.30-6.10); WHITE BLOOD COUNT 3.5 10^3/uL (4.0-10.0)
[2018-04-01 14:00] LABS: ERYTHROCYTE SEDIMENTATION RATE 79 mm/hr (0-20)
[2018-04-01 14:19] LABS: ALBUMIN 2.4 GM/DL (3.2-5.2); BILIRUBIN,TOTAL 0.8 MG/DL (0.2-1.0); C REACTIVE PROTEIN QUANTITATIV 7.59 MG/DL (0.00-0.30); CALCIUM LEVEL 7.9 MG/DL (8.8-10.2); CREATININE FOR GFR 6.27 MG/DL (0.70-1.30); GLOMERULAR FILTRATION RATE 9.7 (>49); POTASSIUM SERUM 4.8 MEQ/L (3.5-5.1); TOTAL PROTEIN 8.7 GM/DL (6.4-8.2)
== END ==
LOC: M SFHCPLAZ 11:51
PROVIDERS: ATTEND Internal Medicine Infectious Disease
DX: M86.672 Other chronic osteomyelitis, left ankle and foot (principal); R06.09 Other forms of dyspnea
CPT/HCPCS: 36415; 80053; 83880; 85025; 85652; 86140; G0463

== ENCOUNTER 2018-04-05 12:38 | Inpatient (IN) | payer MEDICARE, MEDICAID ==
[~2018-04-05] VITALS: Ht 172.7 cm; Wt 53.4 kg
[~2018-04-05 12:38] MED LIST changes: -ASPI81TAEC PO; -CETI10TA PO; -FERR325T3 PO; -FLON1SPR NARES; -LEVO250T12 PO
[2018-04-05 13:23] LABS: BASO % 0.8 % (0.0-1.0); EOS # 0.2 10^3/uL (0.0-0.50); EOS % 6.6 % (0.0-3.0); HEMATOCRIT 36.8 % (42.0-52.0); HEMOGLOBIN 11.1 g/dl (13.5-17.5); LYMPH # 0.5 10^3/uL (1.5-4.5); LYMPH % 14.3 % (24.0-44.0); MEAN CORPUSCULAR HEMOGLOBIN 28.6 pg (27.0-33.0); MEAN CORPUSCULAR HGB CONC 30.2 g/dl (32.0-36.5); MEAN CORPUSCULAR VOLUME 94.8 fl (80.0-96.0); MONO # 0.4 10^3/uL (0.0-0.8); MONO % 12.1 % (0.0-5.0); NEUTROPHILS # 2.4 10^3/uL (1.8-7.7); NEUTROPHILS % 65.7 % (36.0-66.0); PLATELET COUNT, AUTOMATED 103 10^3/uL (150-450); RED BLOOD COUNT 3.88 10^6/uL (4.30-6.10); WHITE BLOOD COUNT 3.6 10^3/uL (4.0-10.0)
--- NOTE | 2018-04-05 13:24 | ECGEPIP ---
Stationary ECG Study [facility] - ED Test Date: 2018-04-05 Pat Name: KITTY CARL Department: Room: - Gender: M Community Living Specialist: marian : 1955 Requested By: SAMMI ROSENBERG Order Number: [id number] Reading MD: Juhi Avery Measurements Intervals [place] Rate: 76 P: 13 FL: 187 QRS: 125 QRSD: 98 T: 10 QT: 430 QTc: 486 Interpretive Statements SINUS RHYTHM POSSIBLE LEFT ATRIAL ENLARGEMENT POSSIBLE RIGHT VENTRICULAR HYPERTROPHY MODERATE ST DEPRESSION PROLONGED QT INTERVAL Electronically Signed On 04-05-2018 13:24:14 EST by Juhi Avery
[2018-04-05 13:32] LABS: INR 1.35; PROTHROMBIN TIME 16.9 SECONDS (12.1-14.4)
--- NOTE | 2018-04-05 13:56 | REP ---
PORTABLE CHEST: AP portable view of the chest is performed and compared to prior study of 01/27/2018. There is cardiomegaly again noted. Bilateral pleural effusions and basilar infiltrates are stable. Right central venous catheter is seen extending into the right atrium. IMPRESSION: Stable exam. Electronically Signed by Forrest Smith MD 04/05/2018 02:34 P
--- NOTE | 2018-04-05 14:11 | REP ---
Bilateral lower extremity Duplex Doppler venous ultrasound: Real time compression and duplex Doppler interrogation of the bilateral lower extremity deep venous system is performed. Bilaterally, the common femoral, superficial femoral and popliteal veins are fully compressible with transducer pressure and demonstrate normal spontaneous and phasic flow, without evidence of deep venous thrombosis. Impression: No evidence of deep venous thrombosis of the bilateral lower extremity femoral popliteal venous system. Mildly prominent right inguinal lymph node measures 3.1 x 1.0 x 2.9 cm and left inguinal lymph node 2.6 x 0.9 x 2.9 cm. Electronically Signed by Forrest Smith MD 04/05/2018 02:02 P
[2018-04-05 14:13] LABS: ALBUMIN 2.5 GM/DL (3.2-5.2); BILIRUBIN,DIRECT 0.4 MG/DL (0.0-0.2); BILIRUBIN,TOTAL 0.6 MG/DL (0.2-1.0); CALCIUM LEVEL 8.5 MG/DL (8.8-10.2); CREATININE FOR GFR 4.49 MG/DL (0.70-1.30); GLOMERULAR FILTRATION RATE 14.3 (>49); POTASSIUM SERUM 4.1 MEQ/L (3.5-5.1); TOTAL PROTEIN 9.5 GM/DL (6.4-8.2)
[2018-04-05] MEDS ORDERED: DEXTROSE 50% 50 ML SYRINGE IV STA (15:18)
--- NOTE | 2018-04-05 15:26 | REP ---
CT Head without contrast HISTORY: Altered mental status COMPARISON: None Areas of decreased attenuation are present in the periventricular white matter. This represents small-vessel ischemic disease. There is no intraparenchymal hemorrhage, acute infarct, mass or midline shift. The ventricular system and cortical sulci as well as subarachnoid space in the posterior fossa are dilated consistent with mild volume loss. There is no extra cerebral collection. There is no fracture. The visualized sinuses are clear. IMPRESSION: 1. Small vessel ischemic disease. 2. Mild volume loss. Electronically Signed by Clint Monte MD 04/05/2018 03:17 P
[2018-04-05] MEDS ORDERED: ASPI81TAEC PO (16:38)
[2018-04-05] MEDS ORDERED: LEVO250T12 PO (16:38)
[2018-04-05] MEDS ORDERED: FLON1SPR NARES (16:38)
[2018-04-05] MEDS ORDERED: ATOR1TAB21 PO (16:40)
[2018-04-05] MEDS ORDERED: FERR325T3 PO (16:40)
[2018-04-05] MEDS ORDERED: CETI10TA PO (16:42)
[2018-04-05] MEDS ORDERED: PIPERACILLIN/TAZOBACTAM SOD 2.25 GM in D5W MINI-BAG PLUS 50 ML IV ONE (17:15)
[2018-04-05] MEDS ORDERED: FLUTICASONE PROP 0.05% NASAL SPRAY 16 GM (FLONASE) NARES PRN (17:45)
[2018-04-05] MEDS ORDERED: ONDANSETRON 4MG/2ML VIAL (J2405) IV ONE (18:00)
--- NOTE | 2018-04-05 18:38 | HPEPDOC ---
[facility] Medical History & Physical Date of Admission Apr 05, 2018 History and Physical PRIMARY CARE PROVIDER:Resident clinic ATTENDING: Dr. Christophe Villa CHIEF COMPLAINT: Generalized weakness HISTORY OF PRESENT ILLNESS: This is a 63-year-old male with a past medical history of coronary artery disease, peripheral artery disease status post femoral bypass as well as partial foot amputation, chronic obstruction my letter some the left stump with Pseudomonas, Citrobacter, E. cloacae, end-stage renal disease on hemodialysis, systolic heart failure EF of 30%, diabetes mellitus, medical noncompliance who presents with generalized weakness. notes that the patient's been having generalized weakness and fatigue over the last 3-4 days. also notes that this morning he had syncopal episode, and difficulty waking him up, at the time she checked his blood sugar which was 83, patient then opened his eyes and which was responsive however was feeling generally ill and did not want to get out of bed. Of notes, the patient has been noncompliant with his medications. He has been on Levaquin for chronic osteoarthritis, however he has not taken it for 3 days this week, and has been missing his doses frequently, as he did not feel like taking them per . Of note the patient does have an appointment coming up this month with vascular surgery to further evaluate his lower extremities given his peripheral artery disease. The patient is alert and oriented 3, following commands and moving all his extremities. No focal deficits. No chest pain palpitations. No nausea vomiting or abdominal pain. Of note, the patient has been complaining of a nonproductive cough and shortness of breath over the past week. No fevers or chills. In the ED pt was noted to have BS in the 60s. PAST MEDICAL HISTORY: As per HPI PAST SURGICAL HISTORY: Cardiac cath 2015, femoral bypass 2011, partial foot amputation SOCIAL HISTORY: Denies tobacco, alcohol use. FAMILY HISTORY: Noncontributory ALLERGIES: Please see below. REVIEW OF SYSTEMS: HEENT: Denies sore throat/headache CARDIOVASCULAR: Denies chest pain/palpitations RESPIRATORY: Denies shortness of breath/cough GASTROINTESTINAL: denies nausea/vomiting GENITOURINARY: Denies dysuria/urinary urgency. MUSCULOSKELETAL: Denies myalgias/arthralgias NEUROLOGICAL: Denies any focal weakness HOME MEDICATIONS: Please see below. PHYSICAL EXAMINATION: Vitals: (see below) General: No acute distress, laying comfortably in bed. HEENT: Moist mucous membranes. Neck: No JVD or lymphadenopathy Cardiac: RRR, No murmurs Pulm: Diminished breath at the bases b/l. No wheezing, rhonchi Abd: NT/ND + BS Ext: 1+ pitting edema bilateral lower extremities. No cyanosis. Bilateral partial foot amputation. Drainage of bilateral wounds left greater than the right. Neuro: Strength 5/5 BUE and BLE. CN 2-12 intact. F to N intact Alert and oriented 3. LABORATORY DATA: See below. IMAGING: Chest x-ray 04/05/18 IMPRESSION: Stable exam. Ultrasound bilateral lower extremities 04/05/18 Impression: No evidence of deep venous thrombosis of the bilateral lower extremity femoral popliteal venous system. Mildly prominent right inguinal lymph node measures 3.1 x 1.0 x 2.9 cm and left inguinal lymph node 2.6 x 0.[address] chest pending ASSESSMENT/PLAN: 1. Generalized weakness likely secondary to the patient's poorly treated osteomyelitis. Patient has had chronic osteomyelitis bilateral b/l feet and has been on levaquin per Dr. Ball. Patient has not been taking his Levaquin at home. Started patient on Zosyn, with repeat blood/wound cultures. May need additional debridement in the near future. Wound care. 2. Syncope- patient's blood sugars were in the 60s in the ED, likely secondary to the patient's underlying infection. Patient started on D5. Echocardiogram. Cardiac enzymes. We will monitor on telemetry. 3. Medical noncompliance- counseled on the need to adhere medical therapy. 4. History of CAD continue meds 5. History of peripheral vascular disease- status post partial amputation bilateral feet, status post femoral bypass. States he has appointments this month with vascular surgery in [place]. 6. History of systolic heart failure EF of 30%. Compensated at this time. Continue meds. 7. End-stage renal disease on hemodialysis Sunday//Sunday. Nephrology consult. Appreciate input. 8. Nonproductive cough as well as shortness of breath- ? Bronchitis versus infiltrate . CT chest pending. Mucinex. Respiratory panel. DVT prophylaxis heparin subcutaneous Patient will be followed by Dr. Christophe Villa starting 04/06/18 at 7 AM. Vital Signs Vital Signs Date Time Temp Pulse Resp B/P (MAP) Pulse Ox O2 Delivery O2 Flow Rate FiO2 04/05/18 15:35 152/77 (102) 97 04/05/18 15:23 77 04/05/18 12:54 20 Laboratory Data Labs 24H Laboratory Tests 2 04/05/18 13:13: Immature Granulocyte % (Auto) 0.5, White Blood Count 3.6L, Red Blood Count 3.88L, Hemoglobin 11.1L, Hematocrit 36.8L, Mean Corpuscular Volume 94.8, Mean Corpuscular Hemoglobin 28.6, Mean Corpuscular Hemoglobin Concent 30.2L, Red Cell Distribution Width 22.9H, Platelet Count 103L, Neutrophils (%) (Auto) 65.7, Lymphocytes (%) (Auto) 14.3L, Monocytes (%) (Auto) 12.1H, Eosinophils (%) (Auto) 6.6H, Basophils (%) (Auto) 0.8, Neutrophils # (Auto) 2.4, Lymphocytes # (Auto) 0.5L, Monocytes # (Auto) 0.4, Eosinophils # (Auto) 0.2, Basophils # (Auto) 0.0, Nucleated Red Blood Cells % (auto) 0.0, Prothrombin Time 16.9H, Prothromb Time International Ratio 1.35, Anion Gap 7L, Glomerular Filtration Rate 14.3L, Lactic Acid Level 2.0, Calcium Level 8.5L, Aspartate Amino Transf (AST/SGOT) 28, Alanine Aminotransferase (ALT/SGPT) 14, Alkaline Phosphatase 362H, Total Biliru bin 0.6, Direct Bilirubin 0.4H, Total Protein 9.5H, Albumin 2.5L, Albumin/Globulin Ratio 0.36L 04/05/18 15:16: Bedside Glucose (Misc Panel) 62L 04/05/18 16:54: Urine Color YELLOW, Urine Appearance HAZY, Urine pH 7.0, Urine Specific [place] 1.010, Urine Protein 2+H, Urine Glucose (UA) NEGATIVE, Urine Ketones NEGATIVE, Urine Blood 3+H, Urine Nitrite NEGATIVE, Urine Bilirubin NEGATIVE, Urine Urobilinogen 0.2, Urine Leukocyte Esterase NEGATIVE, Urine WBC (Auto) 0, Urine RBC (Auto) 92H, Urine Hyaline Casts (Auto) 2, Urine Bacteria (Auto) NEGATIVE, Urine Squamous Epithelial Cells 0, Urine Mucus (Auto) SMALL, Urine Sperm (Auto) CBC/BMP Laboratory Tests 04/05/18 13:13 Red Blood Count 3.88 L, Mean Corpuscular Volume 94.8, Mean Corpuscular Hemoglobin 28.6, Mean Corpuscular Hemoglobin Concent 30.2 L, Red Cell Distribution Width 22.9 H, Neutrophils (%) (Auto) 65.7, Lymphocytes (%) (Auto) 14.3 L, Monocytes (%) (Auto) 12.1 H, Eosinophils (%) (Auto) 6.6 H, Basophils (%) (Auto) 0.8, Neutrophils # (Auto) 2.4, Lymphocytes # (Auto) 0.5 L, Monocytes # (Auto) 0.4, Eosinophils # (Auto) 0.2, Basophils # (Auto) 0.0 Microbiology Microbiology 04/05/18 Blood Culture, Received Pending 04/05/18 Blood Culture, Received Pending Home Medications Scheduled Aspirin (Aspirin EC) 81 Mg Tabec, 81 MG PO DAILY Atorvastatin Calcium (Atorvastatin Calcium) 20 Mg Tab, 20 MG PO QHS Cetirizine HCl (Cetirizine HCl) 10 Mg Tab, 10 MG PO DAILY Clopidogrel Bisulfate (Plavix) 75 Mg Tab, 75 MG PO DAILY Famotidine (Famotidine) 20 Mg Tab, 20 MG PO DAILY Ferrous Sulfate (Ferrous Sulfate) 325 Mg Tab, 325 MG PO DAILY Levofloxacin Hemihydrate (Levofloxacin) 250 Mg Tab, 250 MG PO DAILY Lisinopril (Lisinopril) 10 Mg Tab, 10 MG PO DAILY Metoprolol Succinate (Metoprolol Succinate ER) 50 Mg Tab, 50 MG PO DAILY Sevelamer Carbonate (Sevelamer Carbonate) 800 Mg Tab, 800 MG PO WM Vitamin B Cmplx/Vitc/Folic Ac (Nephro-Vidal Rx 1 mg) 1 Tab Tab, 1 TAB PO DAILY Scheduled PRN Fluticasone Propionate (Flonase Allergy Relief) 50 Mcg/Act Spr, 2 SPRAY NARES DAILY PRN for ALLERGIES Allergies Coded Allergies: Sitagliptin (Verified Adverse Reaction, Mild, UPSET STOMACH, 01/27/18) SHRUTHI PALACIOS MD Apr 05, 2018 18:38
[2018-04-05] MEDS ORDERED: D5W 1,000 ML IV SCH (19:30)
[2018-04-05 19:42] LABS: C REACTIVE PROTEIN QUANTITATIV 7.08 MG/DL (0.00-0.30)
[2018-04-05 21:19] VITALS: BP_SYST 182
[2018-04-05] MEDS: guaiFENesin ER 600 MG TAB PO SCH (21:27)
[2018-04-05] MEDS: ATORVASTATIN 20 MG TAB PO SCH (21:27)
[2018-04-05] MEDS ORDERED: METOPROLOL SUCC (TopROL XL) 50MG **XL** TAB PO ONE (22:30)
[2018-04-05] MEDS: HEPARIN SOD (PORCINE) 5000 UNITS/ML VIAL SC SCH (22:34)
[2018-04-06] VITALS (7 sets, daily range): BP systolic 86–154; BP diastolic 54–75
[2018-04-06] MEDS: ACETAMINOPHEN TAB 650MG DOSE (2X325MG) PO PRN (00:02)
[2018-04-06 05:56] LABS: HEMATOCRIT 32.4 % (42.0-52.0); HEMOGLOBIN 9.9 g/dl (13.5-17.5); MEAN CORPUSCULAR HEMOGLOBIN 28.5 pg (27.0-33.0); MEAN CORPUSCULAR HGB CONC 30.6 g/dl (32.0-36.5); MEAN CORPUSCULAR VOLUME 93.4 fl (80.0-96.0); PLATELET COUNT, AUTOMATED 103 10^3/uL (150-450); RED BLOOD COUNT 3.47 10^6/uL (4.30-6.10); WHITE BLOOD COUNT 3.4 10^3/uL (4.0-10.0)
[2018-04-06] MEDS: PIPERACILLIN/TAZOBACTAM SOD 2.25 GM in D5W MINI-BAG PLUS 50 ML IV SCH ×2 (05:56→17:53)
[2018-04-06 06:19] LABS: CALCIUM LEVEL 8.3 MG/DL (8.8-10.2); CREATININE FOR GFR 5.05 MG/DL (0.70-1.30); GLOMERULAR FILTRATION RATE 12.5 (>49); MAGNESIUM LEVEL 2.4 MG/DL (1.8-2.4); POTASSIUM SERUM 4.1 MEQ/L (3.5-5.1)
[2018-04-06] MEDS: HEPARIN SOD (PORCINE) 5000 UNITS/ML VIAL SC SCH ×3 (06:48→21:56)
[2018-04-06] MEDS: FAMOTIDINE 20 MG TAB PO SCH (06:48)
[2018-04-06] MEDS: guaiFENesin ER 600 MG TAB PO SCH ×2 (06:48→21:00)
[2018-04-06] MEDS: FERROUS SULFATE 325MG TAB PO SCH (06:49)
[2018-04-06] MEDS: CETIRIZINE (ZyrTEC) 10 MG TAB PO SCH (06:49)
[2018-04-06] MEDS: CLOPIDOGREL 75 MG TAB PO SCH (06:49)
[2018-04-06] MEDS: NEPHRO-VIT TAB (NEPHROCAPS) PO SCH (06:49)
--- NOTE | 2018-04-06 07:45 | REP ---
CT STUDY OF THE CHEST WITHOUT CONTRAST: HISTORY: Shortness of breath and cough. Question infiltrate. Comparison is made with today's head CT. FINDINGS: A tunnel catheter is noted in place via the right side. There are bilateral pleural effusions, right a little larger than left. There is evidence of parietal pleural thickening bilaterally. There is consolidation bilaterally in the lower lobes. Extensive vascular calcification is seen. There is mediastinal lymphadenopathy. Interstitial markings are increased diffusely. There is four-chamber cardiac enlargement, and there is myocardial calcification involving the left ventricle and right ventricle. IMPRESSION: Cardiomegaly. Bilateral pleural effusions. There is parietal pleural thickening bilaterally. There are bilateral infiltrates in the lower lobes fairly extensively. There is mediastinal lymphadenopathy. Extensive vascular calcification is noted. Electronically Signed by Aki Parson MD 04/06/2018 10:08 A
[2018-04-06] MEDS ORDERED: D10W 1,000 ML IV SCH (11:30)
--- NOTE | 2018-04-06 12:43 | IPNPDOC ---
Subjective Date Seen The patient was seen on 04/06/18. Subjective Chief Complaint/HPI Saw patient in dialysis this morning. He is arousable but will not respond to questioning. The nurse said he did respond to his name and was mumbling something but it was in Sinhala so she did not understand. Objective Physical Examination General Exam: Positive: No Acute Distress; Negative: Alert, Cooperative Eye Exam: Positive: Conjunctiva & lids normal; Negative: Sclera icteric, Ptosis ENT Exam: Positive: Atraumatic, Mucous membr. moist/pink Chest Exam: Positive: Diminished; Negative: Rales, Rhonchi, Wheezing Heart Exam: Positive: Rate Normal, Normal S1, Normal S2 Extremity Exam: Positive: Edema (2+ pitting edema bilateral lower extremities), Other (bilateral partial foot amputation. Currently wrapped in bandages.) Skin Exam: Positive: Nl turgor and temperature; Negative: Rash, Breakdown Neuro Exam: Positive: Other (GCS of 12, E=3, V=4, M=5) Assessment /Plan Assessment #. Possible Pneumonia. Generalized weakness possibly due to fluid overload, chronic osteomyelitis, possible pneumonia. Chest CT:Cardiomegaly. Bilateral pleural effusions. Parietal pleural thickening bilaterally. Bilateral infiltrates in the lower lobes fairly extensive. Mediastinal lymphadenopathy. Extensive vascular calcification noted. Starting Zosyn Repeat blood cultures pending. Respiratory panel negative. #. Chronic osteomyelitis Patient has had chronic osteomyelitis in bilateral feet and has been on levaquin per Dr. Ball, but not been taking his Levaquin at home. Started patient on Zosyn, with repeat blood/wound cultures. May need additional debridement in the near future. Wound care. #. History of peripheral vascular disease S/p partial amputation bilateral feet, s/p femoral bypass. Has appointments this month with vascular surgery in [place]. #. History of systolic heart failure EF of 30%. Compensated at this time. Continue meds. Patient receiving dialysis today for fluid overload. #. End-stage renal disease on hemodialysis Sunday//Sunday. Nephrology consult. Recommendations appreciated. They've increased his fluids to D20 1 liter at 20 mL an hour as he continues to not eat and his glucose levels are low. #. Pancytopenia We will continue to monitor the pancytopenia to see if it improves as he is treated for his infection. Will check B12, folate levels to assess for other possible causes of pancytopenia. #. Possible syncopal episode Unclear etiology, patient's blood sugar was in the 60s yesterday, it could also be due to unresponsiveness from the underlying infection. Patient's blood sugars were in the 60s in the ED, likely secondary to the patie nt's underlying infection. Patient started on D5. Head CT shows small vessel ischemic disease, mild volume loss. Negative for acute change. #. Medical noncompliance Patient has been counseled on the need to adhere medical therapy. #. History of CAD Continue meds Plan/VTE VTE Prophylaxis Ordered?: Yes VS, I&O, 24H, Fishbone Vital Signs/I&O Vital Signs Date Time Temp Pulse Resp B/P (MAP) Pulse Ox O2 Delivery O2 Flow Rate FiO2 04/06/18 08:00 96.2 68 19 110/54 (72) 97 Nasal Cannula 2.0 I&O- Last 24 Hours up to 6 AM 04/06/18 06:00 Intake Total 240 ml Output Total 0 ml Balance 240 ml Laboratory Data 24H LABS Laboratory Tests 2 04/05/18 13:13: Immature Granulocyte % (Auto) 0.5, White Blood Count 3.6L, Red Blood Count 3.88L, Hemoglobin 11.1L, Hematocrit 36.8L, Mean Corpuscular Volume 94.8, Mean Corpuscular Hemoglobin 28.6, Mean Corpuscular Hemoglobin Concent 30.2L, Red Cell Distribution Width 22.9H, Platelet Count 103L, Neutrophils (%) (Auto) 65.7, Lymphocytes (%) (Auto) 14.3L, Monocytes (%) (Auto) 12.1H, Eosinophils (%) (Auto) 6.6H, Basophils (%) (Auto) 0.8, Neutrophils # (Auto) 2.4, Lymphocytes # (Auto) 0.5L, Monocytes # (Auto) 0.4, Eosinophils # (Auto) 0.2, Basophils # (Auto) 0.0, Nucleated Red Blood Cells % (auto) 0.0, Prothrombin Time 16.9H, Prothromb Time International Ratio 1.35, Anion Gap 7L, Glomerular Filtration Rate 14.3L, Lactic Acid Level 2.0, Calcium Level 8.5L, Aspartate Amino Transf (AST/SGOT) 28, Alanine Aminotransferase (ALT/SGPT) 14, Alkaline Phosphatase 362H, Total Bilirubin 0.6, Direct Bilirubin 0.4H, C-Reactive Protein, Quantitative 7.08H, Total Protein 9.5H, Albumin 2.5L, Albumin/Globulin Ratio 0.36L 04/05/18 15:16: Bedside Glucose (Misc Panel) 62L 04/05/18 16:54: Urine Color YELLOW, Urine Appearance HAZY, Urine pH 7.0, Urine Specific [place] 1.010, Urine Protein 2+H, Urine Glucose (UA) NEGATIVE, Urine Ketones NEGATIVE, Urine Blood 3+H, Urine Nitrite NEGATIVE, Urine Bilirubin NEGATIVE, Urine Urobilinogen 0.2, Urine Leukocyte Esterase NEGATIVE, Urine WBC (Auto) 0, Urine RBC (Auto) 92H, Urine Hyaline Casts (Auto) 2, Urine Bacteria (Auto) NEGATIVE, Urine Squamous Epithelial Cells 0, Urine Mucus (Auto) SMALL, Urine Sperm (Auto) 04/05/18 19:17: Bedside Glucose (Misc Panel) 107 04/06/18 00:08: Bedside Glucose (Misc Panel) 87 04/06/18 05:28: Nucleated Red Blood Cells % (auto) 0.0, Anion Gap 8, Glomerular Filtration Rate 12.5L, Blood Urea Nitrogen 25H, Creatinine 5.05H, Sodium Level 139, Potassium Level 4.1, Chloride Level 101, Carbon Dioxide Level 30, Calcium Level 8.3L, Magnesium Level 2.4 04/06/18 05:53: Bedside Glucose (Misc Panel) 117H CBC/BMP Laboratory Tests 04/05/18 13:13 Red Blood Count 3.88 L, Mean Corpuscular Volume 94.8, Mean Corpuscular Hemoglobin 28.6, Mean Corpuscular Hemoglobin Concent 30.2 L, Red Cell Distribution Width 22.9 H, Neutrophils (%) (Auto) 65.7, Lymphocytes (%) (Auto) 14.3 L, Monocytes (%) (Auto) 12.1 H, Eosinophils (%) (Auto) 6.6 H, Basophils (%) (Auto) 0.8, Neutrophils # (Auto) 2.4, Lymphocytes # (Auto) 0.5 L, Monocytes # (Auto) 0.4, Eosinophils # (Auto) 0.2, Basophils # (Auto) 0.0 04/06/18 05:28 Red Blood Count 3.47 L, Mean Corpuscular Volume 93.4, Mean Corpuscular Hemoglobin 28.5, Mean Corpuscular Hemoglobin Concent 30.6 L, Red Cell Distribution Width 22.3 H, Calcium Level 8.3 L Microbiology Microbiology 04/05/18 Blood Culture, Received Pending 04/05/18 Blood Culture, Received Pending 04/05/18 Respiratory Virus Panel (PCR) ([facility]) - Final, Complete GME ATTESTATION GME ATTESTATION My faculty preceptor for this patient encounter was physically present during the encounter and was fully available. All aspects of the patient interview, examination, medical decision making process, and medical care plan development were reviewed and approved by the faculty preceptor. The faculty preceptor is aware and concurs with the plan as stated in the body of this note and will attest to such by his/her cosignature. ESTRELLITA BAIRES DO Apr 06, 2018 12:43
[2018-04-06] MEDS: ASPIRIN 81 MG ENTERIC TAB PO SCH (13:00)
[2018-04-06] MEDS ORDERED: HEPARIN 1,000 UNITS/ML 10ML VIAL (FOR RADIOLOGY& DIALYSIS ONLY) XX ONE (13:00)
[2018-04-06] MEDS: LISINOPRIL 10 MG TAB PO SCH (13:10)
[2018-04-06] MEDS: METOPROLOL SUCC (TopROL XL) 50MG **XL** TAB PO SCH (13:11)
[2018-04-06] MEDS ORDERED: D50W 325 ML in D10W 975 ML IV SCH (14:00)
--- NOTE | 2018-04-06 18:30 | CR ---
DATE OF CONSULTATION: 04/06/2018 REQUESTING PHYSICIAN: Dr. Christophe Villa REASON FOR CONSULTATION: Management of end stage renal disease on hemodialysis. HISTORY OF PRESENT ILLNESS: The patient is a 63-year-old male with a past medical history of end stage renal disease on hemodialysis on a Sunday, and Sunday schedule via PermaCath. Also, a history of coronary artery disease and peripheral artery disease, status post femoral bypass, as well as partial foot amputation, systolic cardiomyopathy with ejection fraction of 30%, hypertension, long-standing type 2 diabetes, dyslipidemia, secondary hyperparathyroidism, history of anemia of chronic kidney disease, and a history of chronic noncompliance with dialysis treatments. The patient was brought to the emergency room for complaint of generalized weakness and fatigue over the past several days, borderline blood sugars, lethargy, and syncopal episode. The patient is on Levaquin for chronic osteomyelitis, but apparently has not been taking his medications regularly at home. PAST MEDICAL HISTORY: As mentioned above. PAST SURGICAL HISTORY: 1. PermaCath placement. 2. Status post partial amputation of both feet. 3. History of femoral bypass. 4. Cardiac catheterization. 5. AV fistula creation. HOME MEDICATIONS: Reviewed. ALLERGIES: SITAGLIPTIN. FAMILY HISTORY: Noncontributory. There is no family history of end stage renal disease. REVIEW OF SYSTEMS: I was unable to obtain review of systems due to patient's clinical condition. SOCIAL HISTORY: There is no report of ongoing tobacco or alcohol use. PHYSICAL EXAMINATION: Temperature 96.2, pulse 68, respiratory rate 19, blood pressure 110/54, saturating 97% on 2 liters nasal cannula. Intake and output yesterday were not recorded. GENERAL: The patient was seen this morning in hemodialysis receiving his chronic dialysis treatment. Eyes are closed. Head is atraumatic. NECK: Supple. Jugular veins are moderately elevated. The PermaCath is in use. There is a dressing without signs of infection. HEART: Sounds are regular. LUNGS: Show diminished breath sounds at the bases. ABDOMEN: Soft. He does not grimace to palpation. There are bowel sounds. EXTREMITIES: Bilateral partial foot amputations and edema, 1+, that extends up to the hip and dependent area. NEUROLOGIC: When I asked the patient simple questions, he mumbles responses in Thai. LABORATORIES: White count 3.4, hemoglobin 9.9, platelets 103. Sodium 139, potassium 4.1, glucose 69. Microbiology: Blood culture with no growth times 24 hours times one set. IMAGING: Head CT showed no acute intracranial finding. Chest CT on 04/05/2018 showed bilateral pleural effusions, bilateral infiltrates in the lower lobes fairly extensively and increased interstitial markings. INPATIENT MEDICATIONS: The patient is on: - D5W at 40 mL an hour, which is discontinued and switched to D20 at 20 mL an hour. - Zosyn 2.25 grams IV every 12 hours - Mucinex 600 mg by mouth twice a day - aspirin 81 mg by mouth daily - atorvastatin 20 mg by mouth at night - Zyrtec 10 mg by mouth daily - Plavix 75 mg by mouth daily - Pepcid 20 mg by mouth daily - ferrous sulfate 325 mg by mouth daily - heparin 5000 units subcutaneously every 8 hours - Lisinopril 10 mg by mouth daily - metoprolol 50 mg by mouth daily - Nephro-Vidal one tablet by mouth daily PROBLEMS: 1. End stage renal disease on hemodialysis on a Sunday, and Sunday schedule, chronically noncompliant with dialysis treatments and with treatment time cut short. The patient is volume overloaded. There is peripheral edema and there are pleural effusions. Blood pressure is somewhat soft and we were only able to remove 1 liter with dialysis today. There is persistent hypoglycemia and he is receiving D5W at 40 mL an hour. Because he is already volume overloaded, I have asked pharmacy to change the IV fluid to D20W, hence we can then cutdown the rate of IV fluid administration. He will be dialyzed again on Sunday for further control of his volume status. 2. History of systolic congestive heart failure (CHF). Fluid overload at this time. With exacerbation of heart failure with bilateral pleural effusions and also with peripheral edema, unfortunately we could only remove 1 liter of fluid with dialysis today due to borderline blood pressure. Cut the rate of the IV fluid he is receiving for hypoglycemia and plan for an extra dialysis treatment on Sunday. As an outpatient, he is chronically noncompliant with dialysis. 3. Hypoglycemia. His fingerstick was in the 60s despite being on a D10W drip. We are switching to D20W and please cut the rate of fluid administration as tolerated by his fingersticks. He is not presently receiving any hypoglycemics. Continues on dextrose infusion. 4. Hypotension. I have added generous holding parameters to both the Lisinopril and the metoprolol, to hold for a systolic less than 130, given the probable underlying infectious state. 5. Chronic osteomyelitis, bilateral partial foot amputations. Noncompliant with antimicrobials at home, now on broad spectrum antibiotics as per primary team. Repeat cultures are pending and receiving wound care. 6. Metabolic encephalopathy. CT of the head noted, no acute findings. Cultures are pending, on broad spectrum antimicrobials. MTDD
[2018-04-06] MEDS: ATORVASTATIN 20 MG TAB PO SCH (21:00)
[2018-04-07 04:45] VITALS: BP 107/51
[2018-04-07 05:08] LABS: HEMATOCRIT 34.2 % (42.0-52.0); HEMOGLOBIN 10.2 g/dl (13.5-17.5); MEAN CORPUSCULAR HEMOGLOBIN 29.1 pg (27.0-33.0); MEAN CORPUSCULAR HGB CONC 29.8 g/dl (32.0-36.5); MEAN CORPUSCULAR VOLUME 97.4 fl (80.0-96.0); RED BLOOD COUNT 3.51 10^6/uL (4.30-6.10)
[2018-04-07 05:13] LABS: CALCIUM LEVEL 8.2 MG/DL (8.8-10.2); CREATININE FOR GFR 3.68 MG/DL (0.70-1.30); POTASSIUM SERUM 4.5 MEQ/L (3.5-5.1)
[2018-04-07 05:25] LABS: PLATELET COUNT, AUTOMATED 88 10^3/uL (150-450)
[2018-04-07] MEDS: PIPERACILLIN/TAZOBACTAM SOD 2.25 GM in D5W MINI-BAG PLUS 50 ML IV SCH ×2 (05:42→17:16)
[2018-04-07] MEDS: HEPARIN SOD (PORCINE) 5000 UNITS/ML VIAL SC SCH ×3 (05:42→21:17)
[2018-04-07 08:00] VITALS: BP 109/64
[2018-04-07] MEDS: METOPROLOL SUCC (TopROL XL) 50MG **XL** TAB PO SCH (08:12)
[2018-04-07] MEDS: LISINOPRIL 10 MG TAB PO SCH (08:12)
[2018-04-07] MEDS: FAMOTIDINE 20 MG TAB PO SCH (08:13)
[2018-04-07] MEDS: CETIRIZINE (ZyrTEC) 10 MG TAB PO SCH (08:13)
[2018-04-07] MEDS: NEPHRO-VIT TAB (NEPHROCAPS) PO SCH (08:13)
[2018-04-07] MEDS: FERROUS SULFATE 325MG TAB PO SCH (08:13)
[2018-04-07] MEDS: ASPIRIN 81 MG ENTERIC TAB PO SCH (08:13)
[2018-04-07] MEDS: guaiFENesin ER 600 MG TAB PO SCH ×2 (08:13→21:17)
[2018-04-07] MEDS: CLOPIDOGREL 75 MG TAB PO SCH (08:13)
[2018-04-07] MEDS ORDERED: GLUCAGON FOR INJ 1 MG VIAL (J1610) SC PRN (08:45)
[2018-04-07] MEDS ORDERED: DEXTROSE 50% 50 ML SYRINGE IV PRN (08:45)
[2018-04-07] MEDS ORDERED: GLUCOSE 4 GM CHEW TABLET PO PRN (08:45)
[2018-04-07 11:57] LABS: ERYTHROCYTE SEDIMENTATION RATE 71 mm/hr (0-20)
[2018-04-07 12:00] VITALS: BP 121/56
[2018-04-07 16:00] VITALS: BP 118/86
[2018-04-07 20:00] VITALS: BP 110/67
[2018-04-07] MEDS: ATORVASTATIN 20 MG TAB PO SCH (21:17)
--- NOTE | 2018-04-07 21:17 | IPN ---
DATE OF SERVICE: 04/07/2018 SUBJECTIVE: This morning the patient tells me he is feeling better. He tells me he still has some pain in his left lower extremity but otherwise he had no other specific complaints. He is oriented to person. He knows he is in the hospital. He does not tell me why. He is more conversant to me although he is hard of hearing. OBJECTIVE: Vital signs: Temperature 97.7, pulse 61, respiratory rate 20, blood pressure 109/64, oxygen saturation 99% on 2 liters. General: He is a disheveled elderly man who is fatigued but arousable and conversant. He does not appear to be in any acute distress. HEENT: Cranial nerves II-XII appear to be grossly intact. He had moist mucous membranes. There is some mild elevation of CVP. Cardiovascular: S1, S2, regular. Respiratory exam: Diminished breath sounds at the bases with poor effort. Abdominal exam benign. Bowel sounds present. The abdomen is soft. Extremities: His bilateral lower extremity dressings are serosanguineous stained but I do not take down his dressings today. LABORATORY STUDIES: WBC 3.0, hemoglobin 10.2, platelet count 88. Chemistry panel: Sodium 137, potassium 4.5, chloride 105, bicarbonate 27, BUN 14, creatinine 3.6. Microbiology: Blood cultures are thus far negative. Respiratory PCR panel is also negative. No new imaging. ASSESSMENT AND PLAN: 1. This is a 63-year-old man who was brought in for weakness and changes in mentation, I suspect is more likely related to fluid overload than to any active infectious etiology. The patient does appear to be improved today. He reportedly was noncompliant with medications at home and chronically noncompliant with hemodialysis. He had 1 liter of fluid removal yesterday. The plan is potentially more hemodialysis tomorrow with further fluid removal. I think he would benefit more from more fluid removal. He does have bilateral infiltrates and lower extremity edema bilaterally. In regards to his infections, he is empirically on Zosyn while we await repeat cultures. He was on levofloxacin at home. I suspect if his cultures remain negative, he could potentially transitioned back to this. Strict compliance was stressed with him. He does appear to be more awake and interactive today. 2. Pancytopenic. I suspect an element of his anemia is related to his end stage renal disease. His leukopenia and thrombocytopenia could be related to an acute infectious process. Will check a peripheral smear. 3. Chronic osteomyelitis. He is on Levaquin from infectious disease but now he is on Zosyn while we await cultures, could likely be narrowed back to Levaquin. Continue with current wound care. He does not appear to be grossly septic at this time. Will check ESR. The CRP is not presently elevated. 4. Peripheral vascular disease. He is status post bilateral lower extremity metatarsal amputations and bypasses. Should have continued followup with vascular surgery in [place]. 5. Decompensated systolic congestive heart failure with ejection fraction 30% decompensated at this time. Nephrology's help greatly appreciated. Volume status will be optimized via hemodialysis. 6. End stage renal disease. On hemodialysis as outlined above. Nephrology's help greatly appreciated. 7. Hypoglycemia possibly secondary to poor oral intake while he was lethargic. I have witnessed him feeding himself at bedside. I have encouraged him to take oral, to continue with standing glucose infusions, and provide him with hypoglycemic protocol. Monitor fingersticks very closely in the next 12 hours to ensure that he does not become hypoglycemic. If he does become hypoglycemic, we will have to investigate further as to why this is. 8. Possible syncopal episode possibly related to hypoglycemia versus decompensated heart failure. He was rather lethargic yesterday on my exam. No events on telemetry. CT of his head is negative. 9. Medical noncompliance. Strict adherence with therapy was advised. Extensive time spent at bedside today counseling him regarding this. 10. History of coronary artery disease. He is on aspirin and Plavix, beta be and a statin. 11. Seasonal allergies. He is on Zyrtec. DISPOSITION: Pending his clinical improvement.
[2018-04-08] VITALS: BP 135/81
[2018-04-08 04:00] VITALS: BP 104/51
[2018-04-08 05:15] LABS: HEMATOCRIT 35.4 % (42.0-52.0); HEMOGLOBIN 10.7 g/dl (13.5-17.5); MEAN CORPUSCULAR HEMOGLOBIN 28.8 pg (27.0-33.0); MEAN CORPUSCULAR HGB CONC 30.2 g/dl (32.0-36.5); MEAN CORPUSCULAR VOLUME 95.2 fl (80.0-96.0); PLATELET COUNT, AUTOMATED 122 10^3/uL (150-450); RED BLOOD COUNT 3.72 10^6/uL (4.30-6.10); WHITE BLOOD COUNT 4.5 10^3/uL (4.0-10.0)
[2018-04-08 05:41] LABS: CALCIUM LEVEL 8.5 MG/DL (8.8-10.2); CREATININE FOR GFR 4.99 MG/DL (0.70-1.30); GLOMERULAR FILTRATION RATE 12.7 (>49); MAGNESIUM LEVEL 2.5 MG/DL (1.8-2.4)
[2018-04-08] MEDS: HEPARIN SOD (PORCINE) 5000 UNITS/ML VIAL SC SCH ×3 (06:15→21:27)
[2018-04-08] MEDS: PIPERACILLIN/TAZOBACTAM SOD 2.25 GM in D5W MINI-BAG PLUS 50 ML IV SCH ×2 (06:15→17:52)
[2018-04-08] MEDS: FERROUS SULFATE 325MG TAB PO SCH (06:52)
[2018-04-08] MEDS: NEPHRO-VIT TAB (NEPHROCAPS) PO SCH (06:52)
[2018-04-08] MEDS: guaiFENesin ER 600 MG TAB PO SCH ×2 (06:52→20:23)
[2018-04-08] MEDS: FAMOTIDINE 20 MG TAB PO SCH (06:52)
[2018-04-08] MEDS: CLOPIDOGREL 75 MG TAB PO SCH (06:52)
[2018-04-08] MEDS: CETIRIZINE (ZyrTEC) 10 MG TAB PO SCH (06:52)
[2018-04-08 08:00] VITALS: BP 130/76
[2018-04-08] MEDS: ASPIRIN 81 MG ENTERIC TAB PO SCH ×2 (09:00→17:52)
--- NOTE | 2018-04-08 09:12 | IPN ---
DATE: 04/07/2018 SUBJECTIVE: The patient is seen and examined this morning at the bedside. He is more awake, alert and interactive today. Speaks to me in Trin[place] and is able to tell me his name, the year, the month, that is the next holiday coming up and able to tell me where he is and his only complaint is that he is hungry. PHYSICAL EXAMINATION: Temperature 97.3, pulse 60, respiratory rate 20, blood pressure 121/56, saturating 99% on 2 liters nasal cannula. Intake yesterday was 810, dialysis yesterday removed 1000 mL, net negative 190. Weight on the bed scale today is not recorded. GENERAL: The patient was seen lying in bed, awake, alert, interactive, conversational. No acute distress. NECK: Supple. Jugular veins are moderately elevated. There is a tunneled PermaCath and dressing. HEART: Sounds are regular. S1, S2. LUNGS: Show diminished breath sounds at the bases. ABDOMEN: Soft. Nontender. There are bowel sounds. EXTREMITIES: Bilateral partial foot amputations and edema, 1+. NEUROLOGIC: He is more awake, alert than he was yesterday and giving appropriate answers to simple questions in [place]. LABORATORIES: White count 3.0, hemoglobin 10.2, platelets 137, potassium 4.5, bicarbonate 27, glucose 81. Microbiology: Blood culture with no growth for 48 hours times two sets. INPATIENT MEDICATIONS: Reviewed by myself. He is off the dextrose infusion. The remainder of medications are unchanged from prior. PROBLEMS: 1. End stage renal disease on hemodialysis on a Sunday, and Sunday schedule, chronically noncompliant with dialysis treatments with missed treatments and treatment time cut short. There is hypervolemia on examination with peripheral edema and pleural effusion, thus yesterday we were only able to remove 1 liter with dialysis. Plan for next treatment on Sunday for further control of his volume status. 2. History of systolic congestive heart failure (CHF) with fluid overload at present and bilateral pleural effusions and peripheral edema. Plan for an extra dialysis treatment on Sunday, and he is now off the IV fluids that he was receiving for hypoglycemia. 3. Hypertension. Blood pressures are presently acceptable and he has not received either the Lisinopril or the metoprolol as generous holding parameters were added as his blood pressure was soft on dialysis on Sunday and we were subsequently unable to remove fluid. We were subsequently unable to remove more than 1 liter of fluid. 4. Chronic osteomyelitis, bilateral partial foot amputations. Noncompliant with antimicrobials at home, now on broad spectrum antibiotics as per primary team. Repeat cultures are pending and receiving wound care. IV Zosyn. Blood cultures are negative times four.
[2018-04-08 11:33] LABS: FOLATE 4.8 NG/ML (>5.4)
--- NOTE | 2018-04-08 13:43 | IPNPDOC ---
Subjective Date Seen The patient was seen on 04/08/18. Subjective Chief Complaint/HPI No acute events overnight. Patient is oriented to person and time, but thought that he was in the [place] in [facility] still. He is able to state that he is with his and son when they're in the room. He denies any symptoms including headache, dizziness, fevers, chills, chest pain, shortness of breath. Objective Physical Examination General Exam: Positive: Alert, No Acute Distress; Negative: Cooperative Eye Exam: Positive: Conjunctiva & lids normal; Negative: Sclera icteric ENT Exam: Positive: Atraumatic Chest Exam: Positive: Diminished; Negative: Rales, Rhonchi, Wheezing Heart Exam: Positive: Rate Normal, Normal S1, Normal S2 Extremity Exam: Positive: Other (bilateral partial foot amputation. Currently wrapped in bandages.); Negative: Edema Skin Exam: Positive: Nl turgor and temperature; Negative: Rash, Breakdown Neuro Exam: Positive: Normal Tone, Sensation Intact Assessment /Plan Assessment 1. 63-year-old male admitted for weakness and altered mental status, it appears that much of his symptomatology is due to fluid overload as he continues to improve after repeated dialysis sessions. He is set to have another dialysis session today for further fluid removal. Clinically his lower extremity edema is much improved and his lungs are clear. May consider taking him off Zosyn as his repeat cultures have been negative so far in restarting him back on his levofloxacin that he takes at home. 2. Pancytopenia This is improved today, his white count is WNL and his platelet count is rising. His anemia as diagnosed by peripheral smear is due to anemia of chronic disease. His folate levels are WNL, B12 is elevated 3. Chronic osteomyelitis. Blood cultures negative after 72 hours, respiratory panel negative. Could consider switching back to oral Levaquin as prescribed by infectious disease. 4. Peripheral vascular disease. -He is status post bilateral lower extremity metatarsal amputations and bypasses. Should have continued followup with vascular surgery in [place]. 5. Decompensated systolic congestive heart failure with ejection fraction 30% decompensated at this time. -Nephrology's help greatly appreciated. Volume status will be optimized via hemodialysis. 6. End stage renal disease. She received an extra hemodialysis session today. Nephrology recommendations appreciated 7. Hypoglycemia possibly secondary to poor oral intake while he was lethargic. Witness patient taking sips of apple juice this afternoon. His son states that he was interested in eating cheese and crackers, but doesn't want this and which is present at bedside. 8. Possible syncopal episode possibly related to hypoglycemia versus decompensated heart failure. He is still lethargic today, but is much more arousable than in prior days. No events on telemetry. CT of his head is negative. 9. Medical noncompliance. -Strict adherence with therapy was advised. 10. History of coronary artery disease. -He is on aspirin and Plavix, beta be and a statin. 11. Seasonal allergies. -He is on Zyrtec. DISPOSITION: Pending his clinical improvement. Plan/VTE VTE Prophylaxis Ordered?: Yes VS, I&O, 24H, Fishbone Vital Signs/I&O Vital Signs Date Time Temp Pulse Resp B/P (MAP) Pulse Ox O2 Delivery O2 Flow Rate FiO2 04/08/18 08:06 2.0 04/08/18 08:00 96.5 62 18 130/76 (94) 98 Nasal Cannula I&O- Last 24 Hours up to 6 AM 04/08/18 06:00 Intake Total 240 ml Output Total 0 ml Balance 240 ml Laboratory Data 24H LABS Laboratory Tests 2 04/07/18 17:15: Bedside Glucose (Misc Panel) 106 04/08/18 00:45: Bedside Glucose (Misc Panel) 127H 04/08/18 04:46: Nucleated Red Blood Cells % (auto) 0.4H, Anion Gap 7L, Glomerular Filtration Rate 12.7L, Blood Urea Nitrogen 25#H, Creatinine 4.99H, Sodium Level 135L, P otassium Level 5.0, Chloride Level 102, Carbon Dioxide Level 26, Calcium Level 8.5L, Magnesium Level 2.5H 04/08/18 13:10: Bedside Glucose (Misc Panel) 125H CBC/BMP Laboratory Tests 04/08/18 04:46 Red Blood Count 3.72 L, Mean Corpuscular Volume 95.2, Mean Corpuscular Hemoglobin 28.8, Mean Corpuscular Hemoglobin Concent 30.2 L, Red Cell Distribution Width 22.0 H, Calcium Level 8.5 L Microbiology Microbiology 04/05/18 Blood Culture - Preliminary, Resulted No Growth after 48 hours. All Specime... 04/05/18 Blood Culture - Preliminary, Resulted No Growth after 72 hours. All specime... 04/05/18 Respiratory Virus Panel (PCR) ([facility]) - Final, Complete GME ATTESTATION GME ATTESTATION My faculty preceptor for this patient encounter was physically present during the encounter and was fully available. All aspects of the patient interview, examination, medical decision making process, and medical care plan development were reviewed and approved by the faculty preceptor. The faculty preceptor is aware and concurs with the plan as stated in the body of this note and will attest to such by his/her cosignature. ESTRELLITA BAIRES DO Apr 08, 2018 13:43
--- NOTE | 2018-04-08 13:46 | IPN ---
DATE OF SERVICE: 04/08/2018 SUBJECTIVE: The patient was seen and examined this morning at bedside in hemodialysis. His was present. The patient is actually more confused today. His states that he appears more confused today, this is not back to his baseline. She is very tearful at bedside. She states that she is leaving later this evening for [place] for her father dying and she will not be in house the next three days. She would like us to contact her son who is the patient's stepson if there are any problems or to contact her when she is in [place], she will have her phone with her for the next 24 hours. PHYSICAL EXAMINATION: VITALS: Temperature 96.5, pulse 62 - regular, respirations 18, blood pressure 130/76 (94), pulse oximetry 98% on 2 liters of nasal cannula. GENERAL: The patient was seen lying in bed, awake, not interactive, not conversational. He appears slightly confused, but he does not appear in any acute distress. NECK: Supple. Jugular venous distention is present, mildly elevated. There is a tunneled PermaCath with dressing that is currently being used for dialysis. HEART: S1, S2, sounds are normal. Regular rate and rhythm. LUNGS: Diminished breath sounds bilaterally at the bases. No audible wheezing. ABDOMEN: Soft. Nontender. Positive bowel sounds. EXTREMITIES: Bilateral partial foot amputations and minimal edema at 1+. NEUROLOGIC: The patient is awake. But not alert. He is not appropriately answering questions. LABORATORIES: White blood count 4.5, hemoglobin 10.7, hematocrit 35.4, platelets 122. Chemistries: Electrolytes are within normal limits. BUN 25 with a creatinine of 4.99. GFR 12.7. Fasting glucose 93. Blood cultures no growth times 48 hours. PROBLEMS: 1. End stage renal disease on hemodialysis Sunday, and Sunday, but chronically noncompliant with dialysis treatments with missed treatment or with treatment time cut short. The patient still appears hypervolemic on examination with peripheral edema. We are currently getting extra treatment today to help better control his volume status. We will resume his normally scheduled hemodialysis tomorrow. 2. History of systolic congestive heart failure (CHF) with fluid overload at present and bilateral pleural effusions and peripheral edema. Currently doing an extra hemodialysis treatment today. We will continue with his normally scheduled dialysis tomorrow as well. We aim to get off at least 2 liters today. 3. History of hypertension. Blood pressures are currently acceptable and he has not received metoprolol due to holding parameters 4. History of chronic osteomyelitis with bilateral partial foot amputations. He is noncompliant with antibiotics at home. He is currently on broad spectrum antibiotics per primary team. Blood cultures are currently negative. He is currently receiving wound care. We will continue with IV Zosyn and recommendations from the primary team. My faculty preceptor for this patient encounter was physically present during the encounter and was fully available. All aspects of the patient interview, examination, medical decision making process, and medical care plan development were reviewed and approved by the faculty preceptor. The faculty preceptor is aware and concurs with the plan as stated in the body of this note and will attest to such by his/her co-signature. JEMAL
[2018-04-08 13:50] VITALS: BP 132/86
[2018-04-08] MEDS: METOPROLOL SUCC (TopROL XL) 50MG **XL** TAB PO SCH (14:13)
[2018-04-08] MEDS: ATORVASTATIN 20 MG TAB PO SCH (20:22)
[2018-04-08 22:00] VITALS: BP 123/58
[2018-04-09 02:00] VITALS: BP 113/57
[2018-04-09] MEDS: PIPERACILLIN/TAZOBACTAM SOD 2.25 GM in D5W MINI-BAG PLUS 50 ML IV SCH ×2 (05:50→17:17)
[2018-04-09] MEDS: HEPARIN SOD (PORCINE) 5000 UNITS/ML VIAL SC SCH ×3 (05:51→20:36)
[2018-04-09 06:00] VITALS: BP 115/62
[2018-04-09 06:24] LABS: HEMATOCRIT 34.2 % (42.0-52.0); HEMOGLOBIN 10.5 g/dl (13.5-17.5); MEAN CORPUSCULAR HEMOGLOBIN 28.7 pg (27.0-33.0); MEAN CORPUSCULAR HGB CONC 30.7 g/dl (32.0-36.5); MEAN CORPUSCULAR VOLUME 93.4 fl (80.0-96.0); PLATELET COUNT, AUTOMATED 101 10^3/uL (150-450); RED BLOOD COUNT 3.66 10^6/uL (4.30-6.10); WHITE BLOOD COUNT 3.2 10^3/uL (4.0-10.0)
[2018-04-09 06:47] LABS: CREATININE FOR GFR 3.71 MG/DL (0.70-1.30); GLOMERULAR FILTRATION RATE 17.8 (>49); MAGNESIUM LEVEL 2.2 MG/DL (1.8-2.4); POTASSIUM SERUM 4.1 MEQ/L (3.5-5.1)
[2018-04-09] MEDS: METOPROLOL SUCC (TopROL XL) 50MG **XL** TAB PO SCH (08:17)
[2018-04-09] MEDS: FERROUS SULFATE 325MG TAB PO SCH (08:21)
[2018-04-09] MEDS: guaiFENesin ER 600 MG TAB PO SCH ×2 (08:21→20:36)
[2018-04-09] MEDS: ASPIRIN 81 MG ENTERIC TAB PO SCH (08:21)
[2018-04-09] MEDS: CLOPIDOGREL 75 MG TAB PO SCH (08:21)
[2018-04-09] MEDS: NEPHRO-VIT TAB (NEPHROCAPS) PO SCH (08:21)
[2018-04-09] MEDS: FAMOTIDINE 20 MG TAB PO SCH (08:22)
[2018-04-09 10:00] VITALS: BP 115/63
--- NOTE | 2018-04-09 10:49 | IPNPDOC ---
Subjective Date Seen The patient was seen on 04/09/18. Subjective Chief Complaint/HPI 63-year-old male admitted with altered mental status and weakness. Today the patient was much more alert, talkative, and cooperative. But he did seem to have difficulties communicating needs whether it was mumbling answers or speaking in [place] and [place]i intermittently. He denied any new symptoms including fevers, chills, chest pain, shortness of breath however sometimes he seems to be experiencing delusions. For example in the room, he seemed to imply that the nurses were out to get him. This was soon followed by him asking what the plan was moving forward. Objective Physical Examination General Exam: Positive: Alert, Cooperative, No Acute Distress Eye Exam: Positive: Conjunctiva & lids normal; Negative: Sclera icteric ENT Exam: Positive: Atraumatic Chest Exam: Positive: Diminished; Negative: Rales, Rhonchi, Wheezing Heart Exam: Positive: Rate Normal, Normal S1, Normal S2 Extremity Exam: Positive: Edema (1+ pitting edema today on exam.), Other (bilateral partial foot amputation. Currently wrapped in bandages.) Skin Exam: Positive: Nl turgor and temperature; Negative: Rash, Breakdown Neuro Exam: Positive: Normal Tone, Sensation Intact Psych Exam: Positive: Oriented x 3 (oriented to person, year, was able to answer who the president was, but answered in [place] when asked where he was. He did not remember that his stopped by yesterday, but did remember that if his son stopped by to see him. When prompted and asked if he was in the hospital, he initially said no then said oh, wait yes I'm in the hospital.) Assessment /Plan Assessment 1. 63-year-old male admitted for weakness and altered mental status, it appears that much of his symptomatology is due to fluid overload as he continues to improve after repeated dialysis sessions. He is set to have another dialysis session today for further fluid removal. Clinically his lower extremity edema is much improved and his lungs are clear. Will continue Zosyn to treat his chronic osteomyelitis. Patient refusing PT multiple days in a row. 2. Pancytopenia White blood cell count and platelets are low again today His anemia as diagnosed by peripheral smear is due to anemia of chronic disease. His folate levels are WNL, B12 is elevated 3. Chronic osteomyelitis. Blood cultures negative after 72 hours, respiratory panel negative. Will continue Zosyn for now. 4. Peripheral vascular disease. -He is status post bilateral lower extremity metatarsal amputations and bypasses. Should have continued followup with vascular surgery in [place]. 5. Decompensated systolic congestive heart failure with ejection fraction 30% decompensated at this time. -Nephrology's help greatly appreciated. Volume status will be optimized via hemodialysis. 6. End stage renal disease. Resuming normal dialysis schedule today. Nephrology recommendations appreciated 7. Hypoglycemia possibly secondary to poor oral intake while he was lethargic. Witness patient taking sips of apple juice this afternoon. His son states that he was interested in eating cheese and crackers, but doesn't want this and which is present at bedside. 8. Possible syncopal episode possibly related to hypoglycemia versus decompensated heart failure. -No events on telemetry. CT of his head is negative. 9. Medical noncompliance. -Strict adherence with therapy was advised. 10. History of coronary artery disease. -He is on aspirin and Plavix, beta be and a statin. 11. Seasonal allergies. -Zyrtec was discontinued as it could be causing him increased confusion. DISPOSITION: Pending his clinical improvement. Plan/VTE VTE Prophylaxis Ordered?: Yes VS, I&O, 24H, Fishbone Vital Signs/I&O Vital Signs Date Time Temp Pulse Resp B/P (MAP) Pulse Ox O2 Delivery O2 Flow Rate FiO2 04/09/18 06:00 96.3 78 16 115/62 (79) 95 Nasal Cannula 2.0 I&O- Last 24 Hours up to 6 AM 04/09/18 06:00 Intake Total 240 ml Output Total 2000 ml Balance -1760 ml Laboratory Data 24H LABS Laboratory Tests 2 04/08/18 13:10: Bedside Glucose (Misc Panel) 125H 04/08/18 14:10: Bedside Glucose (Misc Panel) 123H 04/09/18 00:15: Bedside Glucose (Misc Panel) 68L 04/09/18 05:59: Nucleated Red Blood Cells % (auto) 0.0, Anion Gap 8, Glomerular Filtration Rate 17.8L, Blood Urea Nitrogen 14, Creatinine 3.71H, Sodium Level 136, Potassium Level 4.1, Chloride Level 101, Carbon Dioxide Level 27, Calcium Level 8.0L, Magnesium Level 2.2 CBC/BMP Laboratory Tests 04/09/18 05:59 Red Blood Count 3.66 L, Mean Corpuscular Volume 93.4, Mean Corpuscular He moglobin 28.7, Mean Corpuscular Hemoglobin Concent 30.7 L, Red Cell Distribution Width 21.3 H, Calcium Level 8.0 L Microbiology Microbiology 04/05/18 Blood Culture - Preliminary, Resulted No Growth after 72 hours. All specime... 04/05/18 Blood Culture - Preliminary, Resulted No Growth after 72 hours. All specime... 04/05/18 Respiratory Virus Panel (PCR) ([facility]) - Final, Complete GME ATTESTATION GME ATTESTATION My faculty preceptor for this patient encounter was physically present during the encounter and was fully available. All aspects of the patient interview, examination, medical decision making process, and medical care plan development were reviewed and approved by the faculty preceptor. The faculty preceptor is aware and concurs with the plan as stated in the body of this note and will attest to such by his/her cosignature. ESTRELLITA BAIRES DO Apr 09, 2018 10:49
[2018-04-09 12:21] LABS: C REACTIVE PROTEIN QUANTITATIV 6.29 MG/DL (0.00-0.30)
[2018-04-09 14:05] LABS: ERYTHROCYTE SEDIMENTATION RATE 69 mm/hr (0-20)
[2018-04-09] MEDS ORDERED: LIDOCAINE 1% SDV 5 ML VIAL SQ ONE (14:30)
[2018-04-09] MEDS ORDERED: HEPARIN 1,000 UNITS/ML 10ML VIAL (FOR RADIOLOGY& DIALYSIS ONLY) XX ONE (14:30)
--- NOTE | 2018-04-09 20:30 | IPN ---
DATE: 04/09/2018 SUBJECTIVE: The patient is seen and examined this morning at the bedside and is for dialysis this afternoon. There is a one-to-one sitter present at the bedside. Conrado is slow to respond but after much prompting and verbal and tactile stimulus, he is able to appropriately tell me his full name, his 's name, other family members names, his birthday, age, and the correct year. However, he was slow to respond and gave short answers. Reports he is not hungry but otherwise denies any acute complaints. Vital Signs: Temperature 97.8, pulse 74, respiratory rate 20, blood pressure 115/63, saturating 94% on 2 liters nasal cannula. Intake yesterday is not recorded. Dialysis yesterday removed 2000 mL. Weight on the bed scale today is 70.5 kg. Goal fluid removal with dialysis today will be two liters as tolerated by hemodynamics. General: The patient is seen lying in bed, in no acute distress. No restlessness nor agitation noted. There is a sitter present at the bedside. Eyes are closed, but he opens them on command. Extraocular muscles are intact. Tongue is moist. Nasal cannula is in place. Jugular vein elevation is improved from prior. Cardiac: S1, S2, regular rate and rhythm. Lungs: Show diminished breath sounds at the bases. Abdomen: Soft and nontender. There is a tunneled dialysis catheter present on the left neck. Extremities: Show bilateral partial foot amputations and his peripheral edema is improving from prior, now about trace. Neurologic: The patient is drowsy but arousable with repeat verbal and tactile stimulus and gave short but appropriate responses when I asked him his name, age, date, 's name, current location and year, and the patient also showed three fingers on command. LABORATORY: Sodium 136, potassium 4.1, bicarbonate 27, CRP 6.2, magnesium 2.2, ESR 69, hemoglobin 10.5, glucose 77-103. INPATIENT MEDICATIONS: Reviewed by myself and no change from prior. PROBLEMS: 1. End-stage renal disease, on hemodialysis on a Sunday, , and Sunday schedule. The patient received an extra treatment yesterday for control of his fluid overload. His hypervolemia is improving. Peripheral edema is less appreciable on exam. He had two liters removed with dialysis yesterday and another two liters removed with dialysis today. His next treatment will be on as per his maintenance schedule. His electrolytes are acceptable and no change is being made to his chronic prescription. 2. Systolic congestive heart failure with hypervolemia, bilateral pleural effusions and peripheral edema. Volume status is improving. He had an extra dialysis treatment yesterday, two liters off yesterday, two more liters off today. His oral intake has not been that much, although I am not sure if it is being fully recorded, but his daily weights are down trending. His next dialysis will be on . 3. Hypertension. Blood pressures are acceptable. I discontinued his lisinopril, and he has only received one dose of the metoprolol thus far on this admission. Holding parameters are written. 4. Altered mental status. The patient does not seem to be at his baseline mentation still. He was on a one-to-one sitter when I saw him earlier. His CRP has marginally improved, and his ESR looks fairly stable. There is no leukocytosis. There is no fever spike. CT head had no acute finding. He is not on any interfering neuropathic medications. Sugars have been fairly acceptable from 65 to 103. The patient seems to wax and wane. He was oriented today and able to follow simple commands; however, he required a lot of prompting. Ammonia level is added for tomorrow. Defer further workup to the primary team.
[2018-04-09] MEDS: ATORVASTATIN 20 MG TAB PO SCH (20:36)
[2018-04-09 22:00] VITALS: BP 119/57
[2018-04-10 02:00] VITALS: BP 111/59
[2018-04-10] MEDS: HEPARIN SOD (PORCINE) 5000 UNITS/ML VIAL SC SCH ×3 (05:37→21:46)
[2018-04-10] MEDS: PIPERACILLIN/TAZOBACTAM SOD 2.25 GM in D5W MINI-BAG PLUS 50 ML IV SCH ×2 (05:38→18:00)
[2018-04-10 06:00] VITALS: BP 113/56
[2018-04-10 06:26] LABS: HEMATOCRIT 34.1 % (42.0-52.0); HEMOGLOBIN 10.6 g/dl (13.5-17.5); MEAN CORPUSCULAR HEMOGLOBIN 28.9 pg (27.0-33.0); MEAN CORPUSCULAR HGB CONC 31.1 g/dl (32.0-36.5); MEAN CORPUSCULAR VOLUME 92.9 fl (80.0-96.0); RED BLOOD COUNT 3.67 10^6/uL (4.30-6.10); WHITE BLOOD COUNT 3.1 10^3/uL (4.0-10.0)
[2018-04-10 06:30] LABS: PLATELET COUNT, AUTOMATED 93 10^3/uL (150-450)
[2018-04-10 06:43] LABS: CALCIUM LEVEL 8.3 MG/DL (8.8-10.2); CREATININE FOR GFR 3.25 MG/DL (0.70-1.30); GLOMERULAR FILTRATION RATE 20.8 (>49); MAGNESIUM LEVEL 2.2 MG/DL (1.8-2.4); POTASSIUM SERUM 4.2 MEQ/L (3.5-5.1)
[2018-04-10] MEDS: FERROUS SULFATE 325MG TAB PO SCH (08:57)
[2018-04-10] MEDS: METOPROLOL SUCC (TopROL XL) 50MG **XL** TAB PO SCH (08:58)
[2018-04-10] MEDS: FAMOTIDINE 20 MG TAB PO SCH (08:58)
[2018-04-10] MEDS: ASPIRIN 81 MG ENTERIC TAB PO SCH (08:58)
[2018-04-10] MEDS: CLOPIDOGREL 75 MG TAB PO SCH (08:58)
[2018-04-10] MEDS: guaiFENesin ER 600 MG TAB PO SCH ×2 (08:58→21:46)
[2018-04-10] MEDS: NEPHRO-VIT TAB (NEPHROCAPS) PO SCH (09:00)
[2018-04-10 10:00] VITALS: BP_SYST 160
--- NOTE | 2018-04-10 11:30 | IPNPDOC ---
Subjective Date Seen The patient was seen on 04/10/18. Subjective Chief Complaint/HPI 63-year-old male presenting with chief complaint of altered mental status and fluid overload. He had a single episode of hypoglycemia overnight (57). Patient stating this morning that he is hungry and wishes to eat, but requires much prompting to sit up in bed and start eating. He is still slow to do any activity, but denies any pain, weakness, fevers, chills, headache, dizziness, chest pain, difficulty breathing. Objective Physical Examination General Exam: Positive: Alert, Cooperative, No Acute Distress Eye Exam: Positive: Conjunctiva & lids normal; Negative: Sclera icteric ENT Exam: Positive: Atraumatic Chest Exam: Positive: Diminished; Negative: Rales, Rhonchi, Wheezing Heart Exam: Positive: Rate Normal, Normal S1, Normal S2 Extremity Exam: Positive: Edema (1+ pitting edema today on exam.), Other (bilateral partial foot amputation. Currently wrapped in bandages.) Skin Exam: Positive: Nl turgor and temperature; Negative: Rash, Breakdown Neuro Exam: Positive: Normal Tone, Sensation Intact Psych Exam: Positive: Oriented x 3 (oriented to person, year, was able to answer who the president was, but answered in [place] when asked where he was. He did not remember that his stopped by yesterday, but did remember that if his son stopped by to see him. When prompted and asked if he was in the hosp [place], he initially said no then said oh, wait yes I'm in the hospital.) Assessment /Plan Assessment 1. 63-year-old male admitted for weakness and altered mental status, it appears that much of his symptomatology is due to fluid overload as he continues to improve after repeated dialysis sessions. Clinically his lower extremity edema is much improved and his lungs are clear. Will continue Zosyn to treat his chronic osteomyelitis. Spoke with patient about refusing physical therapy last couple days, he stated he be willing to try and do it today. He gave no specific explanation for why he didn't want to do it last 3 days. Today when I spoke with him he thought he was in [place], thought his was here yesterday when she was not, and was unable to tell me he was in the hospital. He was oriented to name, year, president, and knew that his son was here yesterday. Nephrology ordered an ammonia level was mildly elevated at 38. 2. Pancytopenia White blood cell count and platelets are low His anemia as diagnosed by peripheral smear is due to anemia of chronic disease. His folate levels are WNL, B12 is elevated 3. Chronic osteomyelitis. Blood cultures negative to date, respiratory panel negative. Will continue Zosyn for now. Will check underneath his wound dressings tomorrow (they stay on for 48 hours) to reassess if he needs any wound debridement moving forward. 4. Peripheral vascular disease. -He is status post bilateral lower extremity metatarsal amputations and bypasses. Should have continued followup with vascular surgery in [place]. 5. Decompensated systolic congestive heart failure with ejection fraction 30% decompensated at this time. -Nephrology's help greatly appreciated. Volume status will be optimized via hemodialysis. 6. End stage renal disease. Back on normal T, Th, Sun dialysis schedule. Nephrology recommendations appreciated 7. Hypoglycemia possibly secondary to poor oral intake while he was lethargic. Patient set up in bed in front of me and began to eat his breakfast, stated he was hungry and very interested in eating. 8. Possible syncopal episode possibly related to hypoglycemia versus decompensated heart failure. -No events on telemetry. CT of his head is negative. 9. Medical noncompliance. -Strict adherence with therapy was advised. 10. History of coronary artery disease. -He is on aspirin and Plavix, beta be and a statin. 11. Seasonal allergies. -Zyrtec was discontinued as it could be causing him increased confusion. DISPOSITION: Pending his clinical improvement. Plan/VTE VTE Prophylaxis Ordered?: Yes VS, I&O, 24H, Cirilo Vital Signs/I&O Vital Signs Date Time Temp Pulse Resp B/P (MAP) Pulse Ox O2 Delivery O2 Flow Rate FiO2 04/10/18 10:00 96.6 72 16 160/ (53) 100 Nasal Cannula 2.0 I&O- Last 24 Hours up to 6 AM 04/10/18 06:00 Intake Total 1130 ml Output Total 2000 ml Balance -870 ml Laboratory Data 24H LABS Laboratory Tests 2 04/09/18 11:58: Bedside Glucose (Misc Panel) 103 04/09/18 17:14: Bedside Glucose (Misc Panel) 77L 04/10/18 01:45: Bedside Glucose (Misc Panel) 57L 04/10/18 02:40: Bedside Glucose (Misc Panel) 75L 04/10/18 06:03: Nucleated Red Blood Cells % (auto) 0.0, Immature Platelet Fraction 6.6, Anion Gap 9, Glomerular Filtration Rate 20.8L, Blood Urea Nitrogen 12, Creatinine 3.25H, Sodium Level 137, Potassium Level 4.2, Chloride Level 103, Carbon Dioxide Level 25, Calcium Level 8.3L, Magnesium Level 2.2, Ammonia 38H 04/10/18 10:44: Bedside Glucose (Misc Panel) 134H CBC/BMP Laboratory Tests 04/10/18 06:03 Red Blood Count 3.67 L, Mean Corpuscular Volume 92.9, Mean Corpuscular Hemoglobin 28.9, Mean Corpuscular Hemoglobin Concent 31.1 L, Red Cell Distribution Width 21.3 H, Calcium Level 8.3 L Microbiology Microbiology 04/05/18 Blood Culture - Preliminary, Resulted No Growth after 72 hours. All specime... 04/05/18 Blood Culture - Preliminary, Resulted No Growth after 72 hours. All specime... 04/05/18 Respiratory Virus Panel (PCR) ([facility]) - Final, Complete GME ATTESTATION GME ATTESTATION My faculty preceptor for this patient encounter was physically present during the encounter and was fully available. All aspects of the patient interview, examination, medical decision making process, and medical care plan development were reviewed and approved by the faculty preceptor. The faculty preceptor is aware and concurs with the plan as stated in the body of this note and will attest to such by his/her cosignature. ESTRELLITA BAIERS DO Apr 10, 2018 11:30
--- NOTE | 2018-04-10 12:21 | NUR ---
Pt swallow appears wnl. Tolerating regular solids and thin liquids w/o s/sx aspiration or penetration. Recommend regular solids and thin liquids. However, pt's level of alertness is inconsistent. Please only feed when awake, alert, and sitting upright. Pt may require intermittent staff assist depending on level of alertness. Addendum: 04/10/[address] [facility] Amended: Links added.
[2018-04-10 14:00] VITALS: BP 117/54
--- NOTE | 2018-04-10 15:28 | IPN ---
DATE: 04/10/2018 SUBJECTIVE: Patient is seen this morning at the bedside. His stepson and the sitter are both present. Stepson reports that the patient is still intermittently confused. Thinks he is in the [place] and has been having visual hallucinations and seeing people who are not in the room; however, after much prompting, verbal and tactile stimulus, he is able to give short and appropriate answers to simple questions. Nursing staff reports that the patient ate his full breakfast tray and was awake and alert earlier in the morning and then subsequently became slow and lethargic toward the afternoon. VITAL SIGNS: Temperature 96.5, pulse 78, respiratory rate 15, blood pressure 113/56, saturating 97% on 2 liters nasal cannula. Intake yesterday was 650. Dialysis yesterday removed 2 liters. Net negative 1350. Weight in the bed scale today is 67.1 kg. GENERAL: Patient is seen lying in bed. Eyes are closed. No acute distress. Family present at the bedside. No restless nor agitation noted. There is a sitter present. He opens eyes on command. Extraocular muscles are intact. Tongue is moist. Nasal cannula is in place. Jugular veins are not elevated. CARDIAC: S1, S2, regular rate and rhythm. LUNGS: Show some diminished breath sounds at the bases but otherwise clear to auscultation. ABDOMEN: Soft, and he does not grimace to palpation. There is a tunneled dialysis catheter present in the left neck. EXTREMITIES: Show bilateral partial foot amputations with dressings, and his peripheral edema has improved. NEUROLOGIC: Patient waxes and wanes. Nursing staff reports he fed himself breakfast this morning and ate well and was awake and alert. At the time of my visit the patient was drowsy but arousable with repeat verbal and tactile stimulus and gave short but appropriate responses when I asked him his hame, the year, and the season. PSYCHIATRIC: Family reports that patient has been having visual hallucinations. LABORATORY DATA: White count 3.1, hemoglobin 10.6, platelets 93. Sodium 137, potassium 4.2, bicarbonate 25, ammonia 38, glucose ranging from 57-101 overnight. INPATIENT MEDICATIONS: Reviewed by myself and no change from prior. PROBLEMS: 1. End-stage renal disease, on hemodialysis on a Sunday, , Sunday schedule. Patient's volume status is improving. He had an extra dialysis treatment on Sunday. His next dialysis will be on . He has been tolerating dialysis without any issue. His electrolytes are acceptable. There is no uremia. His Perm-A-Cath is on good use, and patient has previously refused fistula placement. No changes are being made to his chronic prescription. 2. Systolic congestive heart failure, status post exacerbation. Clinically his volume status is improved. He rcently had bilateral pleural effusions on imaging. His supplemental oxygen can likely be weaned. He had [id number] dialysis on Sunday and Sunday with 2 liters removed on each treatment. Next dialysis will be on . His daily weights are down-trending. 3. Hypertension. Blood pressures are acceptable. We stopped his lisinopril, and he has only received two doses of metoprolol thus far on this admission. Holding parameters are written. 4. Labile sugars, blood sugar ranging from 57 at 2 a.m. to 134 this morning. Encourage dietary intake and assistance with feeds as needed, and he is not on any hypoglycemic medications. 5. Altered mental status. Patient appears to have waxing and waning mentation. Nursing staff this morning report that patient was awake, alert, and ate a good breakfast; however, patient was slow at the time of my visit. With lots of prompting he answered simple questions but with very short replies, and family noted that patient earlier thought that he was in the [place] and has apparently also been seeing people who are not in the room. He has no interfering neuropathic medications. Ammonia level was only mildly elevated. Defer further workup to primary team. JEMAL
[2018-04-10 18:00] VITALS: BP 118/58
[2018-04-10] MEDS: ATORVASTATIN 20 MG TAB PO SCH (21:46)
[2018-04-10 22:00] VITALS: BP 113/56
[2018-04-11 02:00] VITALS: BP 116/71
[2018-04-11 06:00] VITALS: BP 138/67
[2018-04-11 06:11] LABS: HEMATOCRIT 34.8 % (42.0-52.0); HEMOGLOBIN 10.7 g/dl (13.5-17.5); MEAN CORPUSCULAR HEMOGLOBIN 28.8 pg (27.0-33.0); MEAN CORPUSCULAR HGB CONC 30.7 g/dl (32.0-36.5); MEAN CORPUSCULAR VOLUME 93.5 fl (80.0-96.0); PLATELET COUNT, AUTOMATED 107 10^3/uL (150-450); RED BLOOD COUNT 3.72 10^6/uL (4.30-6.10); WHITE BLOOD COUNT 3.2 10^3/uL (4.0-10.0)
[2018-04-11 06:32] LABS: CALCIUM LEVEL 8.2 MG/DL (8.8-10.2); CREATININE FOR GFR 4.48 MG/DL (0.70-1.30); GLOMERULAR FILTRATION RATE 14.3 (>49); MAGNESIUM LEVEL 2.4 MG/DL (1.8-2.4); POTASSIUM SERUM 4.6 MEQ/L (3.5-5.1)
[2018-04-11] MEDS: PIPERACILLIN/TAZOBACTAM SOD 2.25 GM in D5W MINI-BAG PLUS 50 ML IV SCH ×2 (06:49→17:33)
[2018-04-11] MEDS: FAMOTIDINE 20 MG TAB PO SCH (06:49)
[2018-04-11] MEDS: guaiFENesin ER 600 MG TAB PO SCH ×2 (06:49→21:28)
[2018-04-11] MEDS: HEPARIN SOD (PORCINE) 5000 UNITS/ML VIAL SC SCH ×3 (06:49→21:28)
[2018-04-11] MEDS: ASPIRIN 81 MG ENTERIC TAB PO SCH (06:50)
[2018-04-11] MEDS: FERROUS SULFATE 325MG TAB PO SCH (06:50)
[2018-04-11] MEDS: CLOPIDOGREL 75 MG TAB PO SCH (06:50)
[2018-04-11] MEDS: NEPHRO-VIT TAB (NEPHROCAPS) PO SCH (06:51)
[2018-04-11] MEDS: METOPROLOL SUCC (TopROL XL) 50MG **XL** TAB PO SCH (06:51)
[2018-04-11] MEDS ORDERED: HEPARIN 1,000 UNITS/ML 10ML VIAL (FOR RADIOLOGY& DIALYSIS ONLY) XX ONE (12:00)
[2018-04-11] MEDS ORDERED: LIDOCAINE 1% SDV 5 ML VIAL SQ ONE (12:00)
[2018-04-11 14:00] VITALS: BP 118/76
--- NOTE | 2018-04-11 15:08 | IPNPDOC ---
Subjective Date Seen The patient was seen on 04/11/18. Subjective Chief Complaint/HPI Patient is seen this morning in dialysis. He is awake and actively participates in conversation. His son also joined for part of the conversation to help me with asking questions Objective Physical Examination General Exam: Positive: Alert, Cooperative, No Acute Distress Eye Exam: Positive: Conjunctiva & lids normal; Negative: Sclera icteric ENT Exam: Positive: Atraumatic Chest Exam: Positive: Diminished; Negative: Rales, Rhonchi, Wheezing Heart Exam: Positive: Rate Normal, Normal S1, Normal S2 Extremity Exam: Positive: Other (bilateral partial foot amputation. Currently wrapped in bandages.) Skin Exam: Positive: Nl turgor and temperature; Negative: Rash, Breakdown Neuro Exam: Positive: Strength at 5/5 X4 ext, Normal Tone, Sensation Intact, Cranial Nerves 3-12 NL Psych Exam: Positive: Oriented x 3 (Alert to person, year, president. Knows that his son is present and what the son's name is. Is not oriented location despite being told repeatedly he is in [place]. Sometimes responds inappropriately for the situation.); Negative: Anxiety, Memory Intact Assessment /Plan Assessment 1. Delirium 63-year-old male admitted for weakness and altered mental status, Although he has improved since admission, he continues to experience confusion to place and still thinks he is in the [place], [place] despite repeatedly informing him he is in [place]. He also reportedly has responded inappropriately to situation, midway through conversation he will ask for newspaper to be put away or act as though he is taking pizza out of the oven or grabbing for money from his pocket and then asking his son where his money is. So far his ESRD and fluid overload problems have been managed by nephrology and he has been on antibiotics for his chronic osteomyelitis. His ammonia level is elevated at 38, but this is not high enough to cause delirium of this kind. He has also been taken off any medications with possible psychotropic medications. We are consulting Dr. Cote with neurology to evaluate this patient for his delirium and ordering an MRI and EEG. 2. Pancytopenia White blood cell count and platelets are low His anemia as diagnosed by peripheral smear is due to anemia of chronic disease. His folate levels are WNL, B12 is elevated 3. Chronic osteomyelitis. Blood cultures negative to date, respiratory panel negative. Will continue Zosyn for now. Will check underneath his wound dressings to reassess if he needs any wound debridement moving forward. 4. Peripheral vascular disease. -He is status post bilateral lower extremity metatarsal amputations and bypasses. Should have continued followup with vascular surgery in [place]. 5. Decompensated systolic congestive heart failure with ejection fraction 30% decompensated at this time. -Nephrology's help greatly appreciated. Volume status will be optimized via hemodialysis. 6. End stage renal disease. Back on normal , , Sun dialysis schedule. Nephrology recommendations appreciated 7. Hypoglycemia possibly secondary to poor oral intake while he was lethargic. Patient set up in bed in front of me and began to eat his breakfast, stated he was hungry and very interested in eating. 8. Possible syncopal episode possibly related to hypoglycemia versus decompensated heart failure. -No events on telemetry. CT of his head is negative. 9. Medical noncompliance. -Strict adherence with therapy was advised. 10. History of coronary artery disease. -He is on aspirin and Plavix, beta be and a statin. 11. Seasonal allergies. -Zyrtec was discontinued as it could be causing him increased confusion. DISPOSITION: Pending his clinical improvement. Plan/VTE VTE Prophylaxis Ordered?: Yes VS, I&O, 24H, Fishbone Vital Signs/I&O Vital Signs Date Time Temp Pulse Resp B/P (MAP) Pulse Ox O2 Delivery O2 Flow Rate FiO2 04/11/18 14:49 99 Nasal Cannula 3.0 04/11/18 06:51 66 133/70 04/11/18 06:00 97.3 19 I&O- Last 24 Hours up to 6 AM 04/11/18 06:00 Intake Total 340 ml Output Total 0 ml Balance 340 ml Laboratory Data 24H LABS Laboratory Tests 2 04/10/18 17:00: Bedside Glucose (Misc Panel) 77L 04/11/18 00:03: Bedside Glucose (Misc Panel) 75L 04/11/18 05:30: Nucleated Red Blood Cells % (auto) 0.0, Anion Gap 8, Glomerular Filtration Rate 14.3L, Blood Urea Nitrogen 18, Creatinine 4.48H, Sodium Level 137, Potassium Level 4.6, Chloride Level 102, Carbon Dioxide Level 27, Calcium Level 8.2L, Magnesium Level 2.4 04/11/18 13:06: Bedside Glucose (Misc Panel) 138H CBC/BMP Laboratory Tests 04/11/18 05:30 Red Blood Count 3.72 L, Mean Corpuscular Volume 93.5, Mean Corpuscular Hemoglobin 28.8, Mean Corpuscular Hemoglobin Concent 30.7 L, Red Cell Distribution Width 21.2 H, Calcium Level 8.2 L Microbiology Microbiology 04/05/18 Blood Culture - Final, Complete NO GROWTH AFTER 5 DAYS 04/05/18 Blood Culture - Final, Complete NO GROWTH AFTER 5 DAYS 04/05/18 Respiratory Virus Panel (PCR) ([facility]) - Final, Complete GME ATTESTATION GME ATTESTATION My faculty preceptor for this patient encounter was physically present during the encounter and was fully available. All aspects of the patient interview, examination, medical decision making process, and medical care plan development were reviewed and approved by the faculty preceptor. The faculty preceptor is aware and concurs with the plan as stated in the body of this note and will attest to such by his/her cosignature. ESTRELLITA BAIRES DO Apr 11, 2018 15:08
--- NOTE | 2018-04-11 17:02 | IPN ---
DATE: 04/11/2018 SUBJECTIVE: Conrado is seen and examined this morning in the dialysis unit receiving his maintenance treatment. His stepson, Reynold, is present at the bedside, as is the one-to-one sitter and as is the hospitalist. Patient required less verbal prompting today. He was quicker to answer questions, spoke in more full sentences, and followed commands without delay as well. He was oriented to person, year, season, but he thought that he was in the [place]. He complains of hunger. Denies pain and is tolerating his dialysis treatment without any issues. Temperature 97.3, pulse 66, respiratory rate 19, blood pressure 138/67, saturating 97% on 2 liters nasal cannula. Intake yesterday was 940. There were three bowel movements recorded yesterday, Weight in the bed scale today is 67.6 kg, which is decreased from prior, and goal fluid removal on dialysis today is 1-1.5 liters. GENERAL: Patient see lying in bed. Eyes are closed, but he opens them on command. Extraocular muscles are intact. No acute distress. Family and sitter present at the bedside. No restlessness nor agitation noted. Tongue is moist. Nasal cannula is in place. Jugular veins are not elevated. CARDIAC: S1, S2, regular rate and rhythm. The tunneled dialysis Perm-A-Cath is in use. LUNGS: Show symmetric air entry bilaterally. No crackle or rale. ABDOMEN: Soft. There is no tenderness to palpation. EXTREMITIES: Show bilateral partial foot amputations with dressings. His peripheral edema has resolved. NEUROLOGIC: He requires much less verbal prompting today. He answers questions using more words than he has on previous days. He is oriented to person, year. Is able to tell me his family members' names, his date of , and follows commands. Moves all four extremities on command and shows three fingers. LABORATORY DATA: White count 3.2, hemoglobin 10.7, pulse 107. Sodium 137, potassium 4.6, glucose 70. INPATIENT MEDICATIONS: Reviewed by myself and no change from prior. PROBLEMS: 1. End-stage renal disease, on hemodialysis on Sunday, , Sunday schedule. His volume status is improving. He had an extra dialysis treatment on Sunday. He is tolerating his treatments well. Perm-A-Cath is in acceptable use. He previously refused a fistula. His electrolytes are acceptable. No changes are being made to his chronic prescription. There is no uremia. 2. Systolic congestive heart failure, status post exacerbation. Volume status is improving. He had an extra dialysis treatment on Sunday. I suggest that chest imaging should be repeated by the end of this week to make sure that the bilateral pleural effusions have improved. I think his supplemental oxygen can be weaned. Goal fluid removal today is 1.5-2 liters as tolerated by hemodynamics. His daily weights are down-trending, and next dialysis treatment will be on Sunday. 3. Hypertension. Blood pressures are acceptable. We stopped his lisinopril. There are generous holding parameters with metoprolol. 4. Altered mental status. Appears waxing and waning, and his mentation was improved when I saw him this morning. He reportedly ate a good breakfast. Sitter is still present. Patient required less prompting and answered simple questions appropriately and was able to follow commands. He is not on any interfering medications. Defer further workup to primary team.
[2018-04-11] MEDS ORDERED: HALOPERIDOL 5 MG/ML VIAL (J1630) IM PRN (21:15)
[2018-04-11] MEDS: ATORVASTATIN 20 MG TAB PO SCH (21:28)
[2018-04-11 22:00] VITALS: BP 134/68
[2018-04-12 02:00] VITALS: BP 124/53
[2018-04-12] MEDS: PIPERACILLIN/TAZOBACTAM SOD 2.25 GM in D5W MINI-BAG PLUS 50 ML IV SCH ×2 (05:22→18:02)
[2018-04-12] MEDS: HEPARIN SOD (PORCINE) 5000 UNITS/ML VIAL SC SCH ×4 (05:22→22:00)
[2018-04-12 05:58] LABS: HEMATOCRIT 34.3 % (42.0-52.0); HEMOGLOBIN 10.7 g/dl (13.5-17.5); MEAN CORPUSCULAR HEMOGLOBIN 28.9 pg (27.0-33.0); MEAN CORPUSCULAR HGB CONC 31.2 g/dl (32.0-36.5); MEAN CORPUSCULAR VOLUME 92.7 fl (80.0-96.0); WHITE BLOOD COUNT 3.7 10^3/uL (4.0-10.0)
[2018-04-12 06:00] VITALS: BP 136/65
[2018-04-12 06:17] LABS: PLATELET COUNT, AUTOMATED 95 10^3/uL (150-450)
[2018-04-12 06:18] LABS: CALCIUM LEVEL 8.3 MG/DL (8.8-10.2); CREATININE FOR GFR 3.79 MG/DL (0.70-1.30); GLOMERULAR FILTRATION RATE 17.4 (>49); MAGNESIUM LEVEL 2.2 MG/DL (1.8-2.4); POTASSIUM SERUM 3.8 MEQ/L (3.5-5.1)
[2018-04-12 10:41] LABS: HEMATOCRIT 34.3 % (42.0-52.0)
[2018-04-12] MEDS: ASPIRIN 81 MG ENTERIC TAB PO SCH (10:47)
[2018-04-12] MEDS: guaiFENesin ER 600 MG TAB PO SCH ×4 (10:47→22:02)
[2018-04-12] MEDS: FERROUS SULFATE 325MG TAB PO SCH (10:47)
[2018-04-12] MEDS: CLOPIDOGREL 75 MG TAB PO SCH (10:48)
[2018-04-12] MEDS: FAMOTIDINE 20 MG TAB PO SCH (10:48)
[2018-04-12] MEDS: METOPROLOL SUCC (TopROL XL) 50MG **XL** TAB PO SCH (10:48)
[2018-04-12] MEDS: NEPHRO-VIT TAB (NEPHROCAPS) PO SCH (10:48)
[2018-04-12 11:00] VITALS: BP 111/59
--- NOTE | 2018-04-12 11:12 | IPNPDOC ---
Subjective Date Seen The patient was seen on 04/12/18. Subjective Chief Complaint/HPI Patient with an acute episode of agitation overnight and was given haloperidol, he states he does not remember the episode. He does recognize me when I enter the room and is able to answer basic questions and follow basic commands but continues to be difficult to understand as he mumbles between emirati and nicaraguan and also will speak about things inappropriate to the conversation. His bedside sitter states this has been going on since she has been present and that it continues to wax and wane between him making sense and him not making sense. Objective Physical Examination General Exam: Positive: Alert, Cooperative, No Acute Distress Eye Exam: Positive: Conjunctiva & lids normal; Negative: Sclera icteric ENT Exam: Positive: Atraumatic Chest Exam: Positive: Diminished; Negative: Rales, Rhonchi, Wheezing Heart Exam: Positive: Rate Normal, Normal S1, Normal S2 Extremity Exam: Positive: Other (bilateral partial foot amputation. Currently wrapped in bandages.) Skin Exam: Positive: Nl turgor and temperature; Negative: Rash, Breakdown Neuro Exam: Positive: Strength at 5/5 X4 ext, Normal Tone, Sensation Intact, Cranial Nerves 3-12 NL Psych Exam: Positive: Oriented x 3 (Alert to person, year, president. Knows that his son is present and what the son's name is. Is not oriented location despite being told repeatedly he is in [place]. Sometimes responds inappropriately for the situation. Unchanged from yesterday. ); Negative: Anxiety, Memory Intact Assessment /Plan Assessment 1. Delirium 63-year-old male admitted for weakness and altered mental status, Although he has improved since admission, he continues to experience confusion to place and still thinks he is in the [place], [place] despite repeatedly informing him he is in [place]. He still responds inappropriately to situation and is mumbling a story that is incoherent to myself and others in the room. Neurology has been consulted and we will be obtaining an MRI and EEG to evaluate for his delirium. His ammonia level is elevated at 38, but this is not high enough to cause delirium of this kind. Patient was given a mg of haloperidol last night for acute agitation, unsure what caused this as the patient did not remember the incident. 2. Pancytopenia White blood cell count and platelets are low His anemia as diagnosed by peripheral smear is due to anemia of chronic disease. His folate levels are WNL, B12 is elevated 3. Chronic osteomyelitis. Blood cultures negative to date, respiratory panel negative. Will continue Zosyn for now. 4. Peripheral vascular disease. -He is status post bilateral lower extremity metatarsal amputations and bypasses. -Dr. Downey recommended consulting Dr. Kaur for consideration of L- extremity arterial study vs L leg angiogram. Dr. Kaur has been consulted, recommendations appreciated. 5. Decompensated systolic congestive heart failure with ejection fraction 30% decompensated at this time. -Nephrology's help greatly appreciated. Volume status will be optimized via hemodialysis. So far his ESRD and fluid overload problems have been managed by nephrology and have resolved, we are ordering a CXR to ensure his bilateral pleural effusions have resolved. 6. End stage renal disease. Back on normal , , Sun dialysis schedule. Nephrology recommendations appreciated 7. Hypoglycemia Resolved 8. Possible syncopal episode possibly related to hypoglycemia versus decompensated heart failure. -No events on telemetry. CT of his head is negative. 9. Medical noncompliance. -Strict adherence with therapy was advised. 10. History of coronary artery disease. -He is on aspirin and Plavix, beta be and a statin. 11. Seasonal allergies. -Zyrtec was discontinued as it could be causing him increased confusion. DISPOSITION: Pending MRI, EEG and neurology recommendations. Plan/VTE VTE Prophylaxis Ordered?: Yes VS, I&O, 24H, Fishbone Vital Signs/I&O Vital Signs Date Time Temp Pulse Resp B/P (MAP) Pulse Ox O2 Delivery O2 Flow Rate FiO2 04/12/18 06:00 98.5 72 18 136/65 (88) 93 Nasal Cannula 1.0 I&O- Last 24 Hours up to 6 AM 04/12/18 06:00 Intake Total 580 ml Output Total 2000 ml Balance -1420 ml Laboratory Data 24H LABS Laboratory Tests 2 04/11/18 13:06: Bedside Glucose (Misc Panel) 138H 04/11/18 16:46: Bedside Glucose (Misc Panel) 146H 04/11/18 20:15: Bedside Glucose (Misc Panel) 128H 04/12/18 05:22: 04/12/18 05:24: Nucleated Red Blood Cells % (auto) 0.0, Immature Platelet Fraction 7.2, Anion Gap 8, Glomerular Filtration Rate 17.4L, Blood Urea Nitrogen 16, Creatinine 3.79H, Sodium Level 138, Potassium Level 3.8, Chloride Level 103, Carbon Dioxide Level 27, Calcium Level 8.3L, Magnesium Level 2.2 CBC/BMP Laboratory Tests 04/12/18 05:22 04/12/18 05:24 Red Blood Count 3.70 L, Mean Corpuscular Volume 92.7, Mean Corpuscular Hemoglobin 28.9, Mean Corpuscular Hemoglobin Concent 31.2 L, Red Cell Distribution Width 21.2 H, Calcium Level 8.3 L Microbiology Microbiology 04/05/18 Blood Culture - Final, Complete NO GROWTH AFTER 5 DAYS 04/05/18 Blood Culture - Final, Complete NO GROWTH AFTER 5 DAYS 04/05/18 Respiratory Virus Panel (PCR) ([facility]) - Final, Complete GME ATTESTATION GME ATTESTATION My faculty preceptor for this patient encounter was physically present during the encounter and was fully available. All aspects of the patient interview, examination, medical decision making process, and medical care plan development were reviewed and approved by the faculty preceptor. The faculty preceptor is aw are and concurs with the plan as stated in the body of this note and will attest to such by his/her cosignature. ESTRELLITA BAIRES DO Apr 12, 2018 11:12
--- NOTE | 2018-04-12 13:47 | REP ---
MR BRAIN WITHOUT CONTRAST: HISTORY: Delirium. COMPARISON: CT 04/05/2018 Areas of increased signal intensity on T2-weighted images are present in the periventricular, subcortical white matter and nathalie. This represents small vessel ischemic disease. There is no intraparenchymal hemorrhage, infarct, mass or midline shift. The ventricular system and cortical sulci as well as subarachnoid space and the posterior fossa are dilated consistent with mild volume loss. There is no extracerebral collection. Mucosal thickening is present in the left maxillary sinus and right mastoid air cells. IMPRESSION: 1. Small vessel ischemic disease. 2. Mild volume loss. Electronically Signed by Clint Monte MD 04/12/2018 01:51 P
[2018-04-12 14:00] VITALS: BP 134/63
--- NOTE | 2018-04-12 14:01 | CR ---
DATE OF CONSULTATION: 04/12/2018 REASON FOR CONSULTATION: Altered mental status. Evaluation and management of suspected delirium. HISTORY OF PRESENT ILLNESS: The patient is a 63-year-old male with past medical history significant for coronary artery disease, peripheral artery disease status post femoral bypass as well as lower extremity amputations, history of multiple infections, end-stage renal disease on hemodialysis with congestive heart failure ejection fraction of 30%, history of diabetes, medical noncompliance who presented to the hospital with generalized weakness. The patient was noted to be volume overloaded. He was treated medically and was noted to still have altered mental status with intermittent waxing and waning changes in cognition. The patient was thought to have had delirium. Each day, according to notes within the chart, he seems to improve. At times he gets confused and says abnormal things, for example, he was telling one of the nursing staff that the pillows do not work. He could not clarify exactly what he meant by that. At times he thinks he is back home in [place] or in the [facility] area. He needs to be oriented to location. He primarily speaks Telugu but does speak broken Jordanian. At the present time, the patient denies any headache, chest pain, shortness breath. He does have amputations of the lower extremities below the knee bilaterally. The patient at the present time is oriented to his name and the correct year and month as well as date. However, he cannot actually tell me what location he is in. He states he is in an office. PAST MEDICAL HISTORY: As per history of present illness. PAST SURGICAL HISTORY: Cardiac catheterization 2015. Femoral bypass 2011. Partial foot amputation. Lower extremity amputation of lower extremities. The patient had a PermaCath placement. ALLERGIES: 1. Sitagliptin. HOME MEDICATIONS: aspirin, atorvastatin, cetirizine, clopidogrel, famotidine, ferrous sulfate, levofloxacin, lisinopril, metoprolol, sevelamer, vitamin B complex, vitamin C, folic acid, Nephro-Vidal, fluticasone. LABORATORY DATA: Reveals the patient has a creatinine of 4.48, BUN 18, ESR 69, WBC count 3.2, platelet count 107, hemoglobin 107, hematocrit 34.8, B12 level 1117. PT 16.9, INR 1.35. Head CT revealed small vessel ischemic disease, mild volume loss. PHYSICAL EXAMINATION: Temperature 97 degrees Fahrenheit, blood pressure 134/68, pulse rate is 70, respiratory rate is 20, oxygenation 95% on 1 liter nasal cannula. The patient is oriented to himself, the month, the day, the date, the year, but not location. He is able to follow all commands. Pupils are 2.5 mm, appear to be round and reactive to light. Extraocular movements appear to be intact in all directions. Sensation V1, V2, V3 is intact to light touch. No facial asymmetry to activation. Palate elevates symmetrically. Tongue is midline. There does not appear to be any pronator drift. Strength appears to be 5/5 including deltoids, biceps, triceps, handgrip, iliopsoas, quadriceps. The patient has bilateral [id number] amputations. Sensory is intact to light touch in all four extremities. Coordination does not reveal any gross ataxia or dysmetria. Gait deferred. ASSESSMENT: 1. Waxing and waning altered mental status in the setting of underlying medical condition, likely cause for delirium. The patient remains on antibiotics which can also contribute towards delirium. Continue supportive medical care. It appears the patient is improving gradually. I would hold off on antipsychotic therapies at this time as there is no defined treatment dose for patient's on dialysis. Would anticipate gradual recovery of delirium which cane take sometimes from days to weeks to show improvement. Recommend obtaining MRI of the brain and obtaining EEG. 2. Continue supportive medical care.
--- NOTE | 2018-04-12 14:42 | REP ---
Chest one-view HISTORY: Pleural effusion Comparison: 01/27/2018 Patchy density is present in the lower lobes consistent with bibasilar atelectasis or infiltrates. Small bilateral pleural effusions are present. The cardiac silhouette is enlarged. The pulmonary vasculature is normal in appearance. A catheter is present in the right atrium. Impression: 1. Bibasilar atelectasis or infiltrates. 2. Small bilateral pleural effusions. 3. Cardiomegaly. Electronically Signed by Clint Monte MD 04/12/2018 02:33 P
[2018-04-12] MEDS: ATORVASTATIN 20 MG TAB PO SCH ×2 (21:00→21:54)
[2018-04-12 22:00] VITALS: BP 122/75
[2018-04-12] MEDS ORDERED: DEXTROSE 50% 50 ML SYRINGE IV STA (22:30)
[2018-04-13] MEDS ORDERED: D5W 1,000 ML IV SCH (00:45)
[2018-04-13 02:00] VITALS: BP 115/70
[2018-04-13 06:00] VITALS: BP 98/60
[2018-04-13 06:23] LABS: HEMATOCRIT 34.4 % (42.0-52.0); HEMOGLOBIN 10.7 g/dl (13.5-17.5); MEAN CORPUSCULAR HEMOGLOBIN 29.1 pg (27.0-33.0); MEAN CORPUSCULAR HGB CONC 31.1 g/dl (32.0-36.5); MEAN CORPUSCULAR VOLUME 93.5 fl (80.0-96.0); PLATELET COUNT, AUTOMATED 102 10^3/uL (150-450); RED BLOOD COUNT 3.68 10^6/uL (4.30-6.10)
[2018-04-13] MEDS ORDERED: DEXTROSE 50% 50 ML SYRINGE IV STA (06:26)
[2018-04-13] MEDS ORDERED: D5W 1,000 ML IV ONE (06:30)
[2018-04-13] MEDS: HEPARIN SOD (PORCINE) 5000 UNITS/ML VIAL SC SCH ×3 (06:33→22:44)
[2018-04-13] MEDS: PIPERACILLIN/TAZOBACTAM SOD 2.25 GM in D5W MINI-BAG PLUS 50 ML IV SCH ×2 (06:33→18:58)
[2018-04-13 06:47] LABS: ATYPICAL LYMPH 1 % (0-5); BASOPHILS 2 % (0-4); EOSINOPHILS 5 % (0-5); LYMPHOCYTES 15 % (16-52); MONOCYTES 5 % (0-8); NEUTROPHILS 72 % (35-75)
[2018-04-13 06:48] LABS: PLATELET ESTIMATE DECREASED (NORMAL)
[2018-04-13 06:49] LABS: ANISOCYTOSIS 2+
[2018-04-13 06:50] LABS: CALCIUM LEVEL 8.1 MG/DL (8.8-10.2); CREATININE FOR GFR 5.03 MG/DL (0.70-1.30); GLOMERULAR FILTRATION RATE 12.5 (>49); POTASSIUM SERUM 3.8 MEQ/L (3.5-5.1)
[2018-04-13] MEDS: FERROUS SULFATE 325MG TAB PO SCH (08:16)
[2018-04-13] MEDS: guaiFENesin ER 600 MG TAB PO SCH ×2 (08:16→20:31)
[2018-04-13] MEDS: NEPHRO-VIT TAB (NEPHROCAPS) PO SCH (08:16)
[2018-04-13] MEDS: ASPIRIN 81 MG ENTERIC TAB PO SCH (08:16)
[2018-04-13] MEDS: CLOPIDOGREL 75 MG TAB PO SCH (08:16)
[2018-04-13] MEDS: FAMOTIDINE 20 MG TAB PO SCH (08:16)
[2018-04-13] MEDS: METOPROLOL SUCC (TopROL XL) 50MG **XL** TAB PO SCH (08:17)
--- NOTE | 2018-04-13 09:46 | IPNPDOC ---
Subjective Date Seen The patient was seen on 04/13/18. Subjective Chief Complaint/HPI Patient had episode of hypoglycemia overnight and was started on D5 this morning. Patient is currently resting comfortably in bed. He is response to questions and today is aware that he is in a hospital in [place], [place]. Denies any fevers, chills, chest pain, states he feels tired. Objective Physical Examination General Exam: Positive: Alert, Cooperative, No Acute Distress Eye Exam: Positive: Conjunctiva & lids normal; Negative: Sclera icteric ENT Exam: Positive: Atraumatic Chest Exam: Positive: Diminished; Negative: Rales, Rhonchi, Wheezing Heart Exam: Positive: Rate Normal, Normal S1, Normal S2 Extremity Exam: Positive: Other (bilateral partial foot amputation. Currently wrapped in bandages.) Skin Exam: Positive: Nl turgor and temperature; Negative: Rash, Breakdown Neuro Exam: Positive: Strength at 5/5 X4 ext, Normal Tone, Sensation Intact, Cranial Nerves 3-12 NL Psych Exam: Positive: Oriented x 3 (Oriented to person, place and time. ); Negative: Anxiety Assessment /Plan Assessment #. Delirium 63-year-old male admitted for weakness and altered mental status. Today he is able to appropriately respond to questions and seems to be improving. Current concern is that he continues to experience episodes of hypoglycemia at night, this could be due to patient not eating enough during the daytime. Will speak with family during the day to inquire whether he is still eating during lunch and dinner. MRI reveals small vessel ischemic disease and mild volume loss. Neurology feels this is like delirium and will just take time to improve, but it could take days. This seems to be improving as today, for the first time he was able to answer where he was located. #. Pancytopenia White blood cell count normal today. Platelets 102. His anemia as diagnosed by peripheral smear is due to anemia of chronic disease. His folate levels are WNL, B12 is elevated #. Chronic osteomyelitis. Blood cultures negative to date, respiratory panel negative. Will continue Zosyn for now. #. Peripheral vascular disease. -He is status post bilateral lower extremity metatarsal amputations and bypasses. -Dr. Downey recommended consulting Dr. Kaur for consideration of L- extremity arterial study vs L leg angiogram. Dr. Kaur has been consulted, recommendations appreciated. #. Decompensated systolic congestive heart failure with ejection fraction 30% decompensated at this time. -Nephrology's help greatly appreciated. Volume status will be optimized via he modialysis. So far his ESRD and fluid overload problems have been managed by nephrology and have resolved, repeat CXR shows bibasilar atelectasis or infiltrates with small bilateral pleural effusions. #. End stage renal disease. Back on normal T, Th, Sat dialysis schedule. Nephrology recommendations appreciated #. Hypoglycemia -Had episodes of hypoglycemia last night, this has happened a couple times during his stay. #. Medical noncompliance. -Strict adherence with therapy was advised. #. History of coronary artery disease. -He is on aspirin and Plavix, beta be and a statin. #. Seasonal allergies. -Zyrtec was discontinued as it could be causing him increased confusion. DISPOSITION: Pending clinical improvement. Plan/VTE VTE Prophylaxis Ordered?: Yes VS, I&O, 24H, Fishbone Vital Signs/I&O Vital Signs Date Time Temp Pulse Resp B/P (MAP) Pulse Ox O2 Delivery O2 Flow Rate FiO2 04/13/18 06:30 1.0 04/13/18 06:00 96.5 71 17 98/60 (73) 92 Nasal Cannula I&O- Last 24 Hours up to 6 AM 04/13/18 06:00 Intake Total 500 ml Output Total 0 ml Balance 500 ml Laboratory Data 24H LABS Laboratory Tests 2 04/12/18 11:06: Bedside Glucose (Misc Panel) 121H 04/12/18 17:33: Bedside Glucose (Misc Panel) 83 04/12/18 22:37: Bedside Glucose (Misc Panel) 72L 04/13/18 00:15: Bedside Glucose (Misc Panel) 101 04/13/18 03:55: Bedside Glucose (Misc Panel) 96 04/13/18 06:10: Bedside Glucose (Misc Panel) 61L 04/13/18 06:11: Nucleated Red Blood Cells % (auto) 0.0, Neutrophils 72, Lymphocytes (Manual) 15L, Monocytes (Manual) 5, Eosinophils (Manual) 5, Basophils (Manual) 2, Atypical Lymphocytes 1, Platelet Estimate DECREASED, Anisocytosis 2+, Anion Gap 9, Glomerular Filtration Rate 12.5L, Blood Urea Nitrogen 20H, Creatinine 5.03H, Sodium Level 138, Potassium Level 3.8, Chloride Level 104, Carbon Dioxide Level 25, Calcium Level 8.1L 04/13/18 07:56: Bedside Glucose (Misc Panel) 115 CBC/BMP Laboratory Tests 04/13/18 06:11 Red Blood Count 3.68 L, Mean Corpuscular Volume 93.5, Mean Corpuscular Hemoglobi n 29.1, Mean Corpuscular Hemoglobin Concent 31.1 L, Red Cell Distribution Width 21.2 H, Calcium Level 8.1 L Microbiology Microbiology 04/05/18 Blood Culture - Final, Complete NO GROWTH AFTER 5 DAYS 04/05/18 Blood Culture - Final, Complete NO GROWTH AFTER 5 DAYS 04/05/18 Respiratory Virus Panel (PCR) ([facility]) - Final, Complete GME ATTESTATION GME ATTESTATION My faculty preceptor for this patient encounter was physically present during the encounter and was fully available. All aspects of the patient interview, examination, medical decision making process, and medical care plan development were reviewed and approved by the faculty preceptor. The faculty preceptor is aware and concurs with the plan as stated in the body of this note and will attest to such by his/her cosignature. ESTRELLITA BAIRES DO Apr 13, 2018 09:46
--- NOTE | 2018-04-13 10:25 | IPN ---
DATE: 04/12/2018 SUBJECTIVE: Patient seen and examined this morning at the bedside. The sitter is present. At the time of my visit, the patient seemed quite alert and interactive. He answered questions appropriately in Syrian. He knew he was in the hospital in [place]. He could tell me the year and followed commands without delay. Nursing staff sitter at the bedside reports that the patient has apparently not slept and had an episode of agitation as well. The patient has been coughing since this morning. VITAL SIGNS: Temperature 97.8, pulse 69, respiratory rate 16, blood pressure 111/59, saturating 90% on 1 liter nasal cannula. Intake yesterday was only recorded as 460. Dialysis yesterday removed 2000 mL. Weight on the bed scale today 66.5 kg, which is decreased from prior. GENERAL: Patient is seen lying in bed. Sitter is present at the bedside. He is awake, alert, makes eye contact. No acute distress. Nasal cannula is in place. Tunnel dialysis catheter is in place. Jugular veins are not elevated. CARDIAC: S1, S2 regular rate. LUNGS: Shows occasional rhonchus and are diminished at the bases. ABDOMEN: Soft and nontender to palpation. EXTREMITIES: Bilateral foot amputations with dressings. His peripheral edema has resolved. NEUROLOGIC: I found the patient to be more awake, alert, and interactive today. He was oriented times three at the time of my visit, was able to tell me he is in a hospital in [place], tell me the year, the season, and his date of and age and followed commands without delay. LABS: White count 3.7, hemoglobin 10.7, platelet 95. Sodium 138, potassium 3.8, bicarbonate 27, glucose 70, magnesium 2.2. Brain MRI 04/12/2018: Minimal volume loss and small vessel ischemic disease. INPATIENT MEDICATIONS: Reviewed by myself. He received one dose of Haldol. The remainder of the medications are unchanged from prior. PROBLEMS: 1. Endstage renal disease on hemodialysis on Sunday, , Saturdays schedule. Has been tolerating his treatments without issue. He received extra dialysis session on Sunday and that his next dialysis will be on Sunday. His electrolytes are acceptable. His anemia is optimized and hemoglobin is at goal and his volume status is improving. 2. Systolic congestive heart failure status post exacerbation. Had extra dialysis treatment on Sunday. Has about 2 liters removed with each treatment. Next dialysis will be on Sunday. He is pending repeat chest imaging to see if the bilateral pleural effusions have improved and he is still requiring supplemental oxygen, though this is being weaned. His daily weights have nicely down-trended. Next dialysis treatment will be on Sunday. 3. Hypertension: Blood pressures are acceptable. There are generous holding parameters with metoprolol. Lisinopril has been discontinued. 4. Altered mental status appears waxing and waning. His mentation actually this morning, at the time of my visit, was improved from previous days. Patient was oriented times three and answers simple questions appropriately in Syrian and followed commands without delay but I note, he was agitated overnight and required Haldol. He still has a sitter present at the bedside. MRI is noted without acute finding and patient is planned for EEG and neurology evaluation. There are no interfering medications noted. MTDD
[2018-04-13 14:00] VITALS: BP 113/57
[2018-04-13 18:00] VITALS: BP 120/56
[2018-04-13] MEDS: D10W 1,000 ML IV SCH (19:31)
[2018-04-13] MEDS: ATORVASTATIN 20 MG TAB PO SCH (20:31)
[2018-04-13 22:00] VITALS: BP 112/56
[2018-04-14 02:00] VITALS: BP 116/59
[2018-04-14] MEDS: PIPERACILLIN/TAZOBACTAM SOD 2.25 GM in D5W MINI-BAG PLUS 50 ML IV SCH ×2 (05:36→17:04)
[2018-04-14] MEDS: HEPARIN SOD (PORCINE) 5000 UNITS/ML VIAL SC SCH ×3 (05:36→21:23)
[2018-04-14 06:00] VITALS: BP 120/66
--- NOTE | 2018-04-14 06:40 | EEG ---
DATE OF EE04/12/2018 REFERRING PHYSICIAN: Christophe Villa MD DIAGNOSIS: Altered mental status. EEG NUMBER: [id number] HISTORY: Patient is a 63-year-old man who was admitted at [facility] due to altered mental status. He is currently taking aspirin, Lipitor, Plavix, Pepcid, metoprolol, etc. TECHNICAL DESCRIPTION: This digital EEG was recorded by 21 scalp, ear and two EKG electrodes and was reviewed in bipolar and referential montages following reformatting 10-20 international electrode placement system. INTERPRETATION: The patient was noted to be in awake and drowsy states during this EEG. Resting awake background rhythm consisted of 5-6 hertz theta activity measuring 15-40 microvolts in amplitude. No sleep was achieved. The patient became drowsy during this EEG. Hyperventilation could not performed. Photic stimulation remained unremarkable. EKG revealed normal sinus rhythm with possible bundle branch block pattern. No focal, lateralizing or epileptiform abnormalities were seen. No clinical or electrographic seizures were recorded. CONCLUSION: This EEG in awake, drowsy states is abnormal due to presence of generalized slowing and disorganization of background consistent with nonspecific diffuse cerebral dysfunction such as seen in encephalopathy due to multiple potential causes including toxic, metabolic, infectious, medication related or multifocal structural brain abnormalities. Clinical correlation is recommended.
[2018-04-14] MEDS: guaiFENesin ER 600 MG TAB PO SCH ×2 (08:25→21:23)
[2018-04-14] MEDS: FAMOTIDINE 20 MG TAB PO SCH (08:26)
[2018-04-14] MEDS: NEPHRO-VIT TAB (NEPHROCAPS) PO SCH (08:26)
[2018-04-14] MEDS: CLOPIDOGREL 75 MG TAB PO SCH (08:26)
[2018-04-14] MEDS: FERROUS SULFATE 325MG TAB PO SCH (08:26)
[2018-04-14] MEDS: METOPROLOL SUCC (TopROL XL) 50MG **XL** TAB PO SCH (08:27)
[2018-04-14] MEDS: ASPIRIN 81 MG ENTERIC TAB PO SCH (08:27)
[2018-04-14 09:28] LABS: HEMATOCRIT 34.9 % (42.0-52.0); HEMOGLOBIN 10.6 g/dl (13.5-17.5); MEAN CORPUSCULAR HGB CONC 30.4 g/dl (32.0-36.5); MEAN CORPUSCULAR VOLUME 95.4 fl (80.0-96.0); PLATELET COUNT, AUTOMATED 103 10^3/uL (150-450); RED BLOOD COUNT 3.66 10^6/uL (4.30-6.10); WHITE BLOOD COUNT 4.8 10^3/uL (4.0-10.0)
[2018-04-14 09:36] LABS: CALCIUM LEVEL 8.4 MG/DL (8.8-10.2); CREATININE FOR GFR 4.16 MG/DL (0.70-1.30); GLOMERULAR FILTRATION RATE 15.6 (>49); POTASSIUM SERUM 4.4 MEQ/L (3.5-5.1)
[2018-04-14 10:00] VITALS: BP 115/55
--- NOTE | 2018-04-14 10:34 | IPN ---
DATE: SUBJECTIVE: Patient was seen and examined at the bedside this morning during hemodialysis. He was tolerating the hemodialysis procedure well. However, he was very sleepy and drowsy. His fingerstick glucose was checked. It was 96. Patient was given some food. He was otherwise, appropriately following some commands. OBJECTIVE: VITAL SIGNS: Temperature is 96.5 degrees Fahrenheit, blood pressure 98/60, pulse 71, respiratory rate of 70, saturating 92% on nasal cannula at 1 liter. Intake and output. Urine output is not recorded. Weight on the bed scale is 66.5 kg. PHYSICAL EXAMINATION: GENERAL: Patient is sleepy and drowsy getting hemodialysis done in no apparent distress. HEAD AND NECK EXAM: Pupils are equally round and reactive to light. Mucous membranes are moist. Neck is supple. There is no jugular venous distention (JVD). He has a right IJ (internal jugular) hemodialysis catheter which is being used for dialysis. CARDIOVASCULAR: S1, S2, irregular rate. No edema of the bilateral lower extremities. RESPIRATORY: Chest is clear to auscultation bilaterally. No active rales or rhonchi. ABDOMEN: Soft, positive bowel sounds. Nontender. No organomegaly. MUSCULOSKELETAL: Patient has bilateral lower extremity transmetatarsal amputations covered with dressing. CENTRAL NERVOUS SYSTEM: Patient is drowsy and sleepy. Follows few commands. LAB REVIEW: CBC showed a WBC of 4, hemoglobin 10.7, platelet 102. BMP showed sodium 138, potassium 3.8, chloride 104, bicarbonate 25, BUN 20, creatinine is 5, glucose 67, calcium 8.1. CURRENT INPATIENT MEDICATIONS: Patient's medications are all reviewed by me. He continues to be on D5W at 50 mL/h. He continues to be no Zosyn. There is no other change in the medications today as compared with yesterday. ASSESSMENT/PLAN: 1. End-stage renal disease on hemodialysis: Patient's regular dialysis days are Sunday, , and Saturdays. He is being dialyzed today according to his regular scheduled. Ultrafiltration goal will be only 1.5 liters because patient is not eating much. 2. Chronic systolic congestive heart failure: Patient's volume status is optimized as mentioned above. Fluid removal will be 1.5 liters. Patient is getting D5W at 50 mL/h. I am going to change this fluid to D10W at 50 mL/h. 3. Hypertension with end-stage renal disease and congestive heart failure: Continue current dose of metoprolol 50 mg by mouth daily. Blood pressure is optimal. 4. Recurrent hypoglycemia: Patient is on D5W. I have changed the fluid to D10W at 50 mL/h. 5. Metabolic encephalopathy: Patient is getting adequate dialysis. His electrolytes are within the acceptable range. He is not on any antipsychotics or COMPUTER NETWORK SUPPORT SPECIALIST-acting medications apart from Haldol, which is as needed only for agitation. His altered mental status is not associated with is renal failure. Patient is pending further neurology workup. 6. Chronic osteomyelitis: He has bilateral transmetatarsal amputations of both feet. He is currently on Zosyn. Dose is adequate for his renal failure. DISPOSITION: Patient has chronic osteomyelitis, end-stage renal disease, decreased oral intake, recent hypoglycemia requiring IV dextrose. Overall, patient has a poor prognosis.
[2018-04-14 14:00] VITALS: BP 121/57
[2018-04-14] MEDS: D10W 1,000 ML IV SCH (14:02)
--- NOTE | 2018-04-14 15:39 | IPN ---
DATE: 04/14/2018 SUBJECTIVE: Patient is seen and examined in the room today. Patient is more alert and awake during encounter. Patient stated he finished his whole dinner yesterday. Denies any acute complaints. OBJECTIVE: Vital signs; Temperature 97.8, pulse 67, respiratory rate 18, blood pressure 120/66, pulse ox 94% with 1 liter nasal cannula. GENERAL: No sign of acute distress. Patient is alert and awake. HEENT: Normocephalic, atraumatic, extraocular motor grossly intact. CARDIOVASCULAR: Positive S1, S2, regular rate. LUNGS: Clear bilaterally but patient has diminished breath sounds. EXTREMITIES: Bilateral lower extremity partial amputation wrapped with dressing. No lower extremity swelling. LABORATORY DATA: WBC 4.8, hemoglobin 10.6, hematocrit 34.9. Platelet count is 103. Sodium 137, potassium 4.4, chloride 103, carbon dioxide 28, BUN 15, creatinine 4.16. Glomerular filtration rate (GFR) is 15.6. Fasting glucose 100. Calcium 8.4, magnesium is 2. ASSESSMENT AND PLAN: 1. Chronic osteomyelitis on Zosyn at baseline patient was taking Levaquin. 2. Peripheral vascular disease. Patient had right lower extremity bypass in the past. Patient had a bilateral lower extremity metatarsal amputation. Consult already for possible left lower extremity arterial study. 3. Delirium. Neurology consulted. Recommend consult management measures. Patient's mentation is improving. 4. Decompensated systolic congestive heart failure with EF of 30%. Patient receiving hemodialysis. 5. End stage renal disease. Dialysis day Sunday, and Sunday. 6. History of coronary artery disease on aspirin, Plavix, and beta blockers and statin. 7. Deep vein thrombosis prophylaxis on Heparin.
[2018-04-14 18:00] VITALS: BP 110/54
[2018-04-14] MEDS: ATORVASTATIN 20 MG TAB PO SCH (21:23)
[2018-04-14] MEDS: HALOPERIDOL 5 MG/ML VIAL (J1630) IV PRN (21:24)
[2018-04-14 22:00] VITALS: BP 125/55
[2018-04-15 02:00] VITALS: BP 112/59
[2018-04-15 06:00] VITALS: BP 120/57
[2018-04-15] MEDS: PIPERACILLIN/TAZOBACTAM SOD 2.25 GM in D5W MINI-BAG PLUS 50 ML IV SCH ×2 (06:30→17:19)
[2018-04-15] MEDS: HEPARIN SOD (PORCINE) 5000 UNITS/ML VIAL SC SCH ×3 (06:30→20:37)
[2018-04-15] MEDS: ASPIRIN 81 MG ENTERIC TAB PO SCH ×2 (06:31→13:27)
[2018-04-15] MEDS: CLOPIDOGREL 75 MG TAB PO SCH ×2 (06:31→13:27)
[2018-04-15] MEDS: FERROUS SULFATE 325MG TAB PO SCH ×2 (06:31→13:27)
[2018-04-15] MEDS: METOPROLOL SUCC (TopROL XL) 50MG **XL** TAB PO SCH (06:33)
[2018-04-15] MEDS: guaiFENesin ER 600 MG TAB PO SCH ×3 (06:34→20:37)
[2018-04-15] MEDS: FAMOTIDINE 20 MG TAB PO SCH ×2 (06:34→13:27)
[2018-04-15] MEDS: D10W 1,000 ML IV SCH (06:35)
[2018-04-15] MEDS: NEPHRO-VIT TAB (NEPHROCAPS) PO SCH ×2 (06:35→13:28)
[2018-04-15 06:43] LABS: HEMATOCRIT 34.3 % (42.0-52.0); HEMOGLOBIN 10.5 g/dl (13.5-17.5); MEAN CORPUSCULAR HEMOGLOBIN 28.8 pg (27.0-33.0); MEAN CORPUSCULAR HGB CONC 30.6 g/dl (32.0-36.5); MEAN CORPUSCULAR VOLUME 94.2 fl (80.0-96.0); PLATELET COUNT, AUTOMATED 102 10^3/uL (150-450); RED BLOOD COUNT 3.64 10^6/uL (4.30-6.10)
[2018-04-15 06:52] LABS: CALCIUM LEVEL 8.3 MG/DL (8.8-10.2); CREATININE FOR GFR 4.98 MG/DL (0.70-1.30); GLOMERULAR FILTRATION RATE 12.7 (>49); MAGNESIUM LEVEL 2.3 MG/DL (1.8-2.4); POTASSIUM SERUM 4.2 MEQ/L (3.5-5.1)
--- NOTE | 2018-04-15 08:59 | IPN ---
DATE: 04/14/2018 SUBJECTIVE: The patient was seen and examined at the bedside this morning. He was getting bilateral lower extremity foot ulcers dressed when I saw him. He is otherwise afebrile, hemodynamically stable. Blood glucose levels are within the acceptable range. OBJECTIVE: VITAL SIGNS: Temperature 97.8 degrees Fahrenheit, blood pressure 135/70, pulse is 78, respiratory rate of 18, saturating 94% on nasal cannula at 1 liter. Intake and output: Urine output was not recorded. Ultrafiltration with hemodialysis was 1.5 liters yesterday. Weight on the bed scale was 65 kg. PHYSICAL EXAMINATION: GENERAL: The patient is awake, alert, oriented times two, lying in bed, getting his dressings done. HEAD AND NECK EXAM: Pupils are equal, round and reactive to light. Mucous membranes are moist. Neck is supple. The right IJ tunneled hemodialysis catheter is noted. CARDIOVASCULAR: S1, S2. Irregular rate. No edema of the bilateral lower extremities. RESPIRATORY: Chest is clear to auscultation bilaterally. Bilateral equal air entry. No rales or rhonchi. ABDOMEN: Soft. Positive bowel sounds. Nontender. No organomegaly. MUSCULOSKELETAL: The patient has bilateral lower extremity transmetatarsal amputations. Dressings are being changed at this point. Left wound is worse than the right. CENTRAL NERVOUS SYSTEM (FAMILY SERVICE CENTER DIRECTOR): The patient is oriented times two. Follows commands. LABORATORY REVIEW: CBC showed a WBC of 4.8, hemoglobin is 10.6, platelets of 103. BMP showed sodium 137, potassium 4.4, chloride 103, bicarbonate 28, BUN is 15, creatinine is 4.1, magnesium 2.0. CURRENT INPATIENT MEDICATIONS: The patient's medications were all reviewed by me. He continues to be on D10 at 50 mL an hour. No other change in medications today as compared with yesterday. ASSESSMENT AND PLAN: 1. End stage renal disease on hemodialysis. The patient's regular dialysis days are Sunday, and Sunday. He was dialyzed yesterday. Next hemodialysis will be tomorrow because of the holiday schedule. 2. Chronic systolic congestive heart failure (CHF). Volume status is optimized. 1.5 liter of fluid was removed yesterday. 3. Hypertension and end stage renal disease. Continue current dose of metoprolol. 4. Recurrent hypoglycemia. The patient is encouraged to eat more diet. He ate 75% of his breakfast this morning. He continues to be on 10% dextrose at this time. 5. Chronic osteomyelitis. The patient has bilateral transmetatarsal amputations in both feet. Dressings are being done. He continues to be on Zosyn. 6. Metabolic encephalopathy. Mental status is improving. The rest of the workup is as per neurology.
[2018-04-15] MEDS ORDERED: HEPARIN 1,000 UNITS/ML 10ML VIAL (FOR RADIOLOGY& DIALYSIS ONLY) XX ONE (11:00)
[2018-04-15 14:00] VITALS: BP 98/60
--- NOTE | 2018-04-15 18:04 | IPNPDOC ---
Text Note Date of Service The patient was seen on 04/15/18. NOTE SUBJECTIVE: Patient is seen and examined in the room today. Patient continues having waxing and weaning of mental status per staff. Patient was seen after dialysis. Patient seemed having significant fatigue. He was not able to answer many questions. OBJECTIVE: Vital signs: Listed below. GENERAL: No sign of acute distress. HEENT: Normocephalic, atraumatic, extraocular motor grossly intact. CARDIOVASCULAR: Positive S1, S2, regular rate. LUNGS: Clear bilaterally but patient has diminished breath sounds. EXTREMITIES: Bilateral lower extremity partial amputation wrapped with dressing. No lower extremity swelling. LABORATORY DATA: Listed below. ASSESSMENT AND PLAN: #. Chronic osteomyelitis - Currently patient is on Zosyn. At baseline patient was taking Levaquin. - Patient has significant peripheral vascular disease that could also contribute to slow recovery of the infection. Dr. Kaur consulted. #. Peripheral vascular disease. - Patient had right lower extremity bypass in the past. Patient had a bilateral lower extremity metatarsal amputation. - Consult already for possible left lower extremity arterial study. #. Delirium. - Neurology consulted. Recommend conservative medical managements. #. Decompensated systolic congestive heart failure with EF of 30%. - Fluid management through hemodialysis. #. End stage renal disease. Dialysis day Sunday, and Sunday. #. History of coronary artery disease - on aspirin, Plavix, and beta blockers and statin. #. Deep vein thrombosis prophylaxis on Heparin. VS,Fishbone, I+O VS, Fishbone, I+O Laboratory Tests 04/15/18 06:18 Red Blood Count 3.64 L, Mean Corpuscular Volume 94.2, Mean Corpuscular Hemoglobin 28.8, Mean Corpuscular Hemoglobin Concent 30.6 L, Red Cell Distribution Width 20.6 H, Calcium Level 8.3 L Vital Signs Date Time Temp Pulse Resp B/P (MAP) Pulse Ox O2 Delivery O2 Flow Rate FiO2 04/15/18 14:00 96.8 57 15 98/60 (73) 98 Nasal Cannula 1.0 I&O- Last 24 Hours up to 6 AM 04/15/18 06:00 Intake Total 1040 ml Output Total 0 ml Balance 1040 ml BARBRA HIGH DO Apr 15, 2018 18:04
[2018-04-15] MEDS: ATORVASTATIN 20 MG TAB PO SCH (20:37)
[2018-04-15 22:00] VITALS: BP 134/58
[2018-04-16 02:00] VITALS: BP 128/56
[2018-04-16] MEDS: HEPARIN SOD (PORCINE) 5000 UNITS/ML VIAL SC SCH ×3 (05:11→21:07)
[2018-04-16] MEDS: PIPERACILLIN/TAZOBACTAM SOD 2.25 GM in D5W MINI-BAG PLUS 50 ML IV SCH ×2 (05:11→17:38)
[2018-04-16 05:50] LABS: HEMATOCRIT 35.1 % (42.0-52.0); HEMOGLOBIN 10.6 g/dl (13.5-17.5); MEAN CORPUSCULAR HEMOGLOBIN 28.5 pg (27.0-33.0); MEAN CORPUSCULAR HGB CONC 30.2 g/dl (32.0-36.5); MEAN CORPUSCULAR VOLUME 94.4 fl (80.0-96.0); RED BLOOD COUNT 3.72 10^6/uL (4.30-6.10); WHITE BLOOD COUNT 4.5 10^3/uL (4.0-10.0)
[2018-04-16 06:00] VITALS: BP 124/59
[2018-04-16 06:04] LABS: CALCIUM LEVEL 8.2 MG/DL (8.8-10.2); CREATININE FOR GFR 3.66 MG/DL (0.70-1.30); GLOMERULAR FILTRATION RATE 18.1 (>49); MAGNESIUM LEVEL 2.2 MG/DL (1.8-2.4)
[2018-04-16 06:15] LABS: PLATELET COUNT, AUTOMATED 97 10^3/uL (150-450)
[2018-04-16] MEDS: guaiFENesin ER 600 MG TAB PO SCH ×2 (07:57→20:03)
[2018-04-16] MEDS: CLOPIDOGREL 75 MG TAB PO SCH (07:57)
[2018-04-16] MEDS: NEPHRO-VIT TAB (NEPHROCAPS) PO SCH (07:57)
[2018-04-16] MEDS: FAMOTIDINE 20 MG TAB PO SCH (07:57)
[2018-04-16] MEDS: ASPIRIN 81 MG ENTERIC TAB PO SCH (07:57)
[2018-04-16] MEDS: FERROUS SULFATE 325MG TAB PO SCH (07:57)
[2018-04-16] MEDS: METOPROLOL SUCC (TopROL XL) 50MG **XL** TAB PO SCH (07:57)
[2018-04-16 08:54] LABS: ERYTHROCYTE SEDIMENTATION RATE 19 mm/hr (0-20)
[2018-04-16 08:57] LABS: C REACTIVE PROTEIN QUANTITATIV 5.1 MG/DL (0.00-0.30)
[2018-04-16 10:00] VITALS: BP 137/64
--- NOTE | 2018-04-16 13:04 | IPNPDOC ---
Date Seen The patient was seen on 04/16/18. Progress Note SUBJECTIVE: Patient complains that he would like to get up and walk but is open to the idea of using a wheelchair he is oriented to person he can come in a year with the president is he knows he is in the hospital cannot tell me what city he is in OBJECTIVE: Vital signs: Listed below. GENERAL: No sign of acute distress. Resting comfortably in bed HEENT: Normocephalic, atraumatic, extraocular motor grossly intact. CARDIOVASCULAR: Positive S1, S2, regular rate. LUNGS: Clear bilaterally EXTREMITIES: Bilateral lower extremity partial amputation wrapped with dressing. No lower extremity swelling. LABORATORY DATA: Listed below. ASSESSMENT AND PLAN: 1. Chronic osteomyelitis: Currently patient is on Zosyn. At baseline patient was taking Levaquin as per infectious disease. Patient has significant peripheral vascular disease that could also contribute to slow recovery of the infection. Dr. Kaur consulted however there is yet to be any note I suspect the patient should've close follow-up and is continued on the outpatient setting regarding his left lower extremity peripheral arterial disease. 2. Peripheral vascular disease. As outlined above 3. Delirium: Patient seems respond better to [place] he was interactive for me today as he was when I last saw him 7 days ago, Neurology consulted. Recommend conservative medical managements related to his chronic infection and antibiotics EEG suggestive of metabolic encephalopathy MRI unrevealing. 4. Decompensated systolic congestive heart failure with EF of 30%.Fluid management through hemodialysis. He appears much better compensated at this time 5. End stage renal disease. Dialysis day Sunday, and Sunday. Nephrology help is greatly appreciated 6. History of coronary artery disease, on aspirin, Plavix, and beta blockers and statin. 7. Deep vein thrombosis prophylaxis on Heparin. Disposition: Likely [facility] facility VS, I&O, 24H, Fishbone Vital Signs/I&O Vital Signs Date Time Temp Pulse Resp B/P (MAP) Pulse Ox O2 Delivery O2 Flow Rate FiO2 04/16/18 10:00 97.3 63 18 137/64 (88) 95 Nasal Cannula 1.0 I&O- Last 24 Hours up to 6 AM 04/16/18 06:00 Intake Total 300 ml Output Total 2000 ml Balance -1700 ml Laboratory Data 24H LABS Laboratory Tests 2 04/15/18 15:23: Bedside Glucose (Misc Panel) 100 04/16/18 04:59: Nucleated Red Blood Cells % (auto) 0.0, Immature Platelet Fraction 6.5, Erythrocyte Sedimentation Rate 19, Anion Gap 7L, Glomerular Filtration Rate 18.1L, Blood Urea Nitrogen 14, Creatinine 3.66H, Sodium Level 134L, Potassium Level 4.0, Chloride Level 104, Carbon Dioxide Level 23, Calcium Level 8.2L, Mag nesium Level 2.2, C-Reactive Protein, Quantitative 5.10H CBC/BMP Laboratory Tests 04/16/18 04:59 Red Blood Count 3.72 L, Mean Corpuscular Volume 94.4, Mean Corpuscular Hemoglobi n 28.5, Mean Corpuscular Hemoglobin Concent 30.2 L, Red Cell Distribution Width 20.4 H, Calcium Level 8.2 L АННА FELIZ MD Apr 16, 2018 13:03
[2018-04-16 14:00] VITALS: BP 131/63
--- NOTE | 2018-04-16 14:42 | IPN ---
DATE OF SERVICE: 04/15/2018 SUBJECTIVE: The patient was seen and examined at the bedside today morning during hemodialysis. He is tolerating the hemodialysis procedure, however he is sleepy and drowsy. OBJECTIVE: VITAL SIGNS: Temperature is 97.1 degrees Fahrenheit, blood pressure 148/76, pulse is 58, respiratory rate of 17, saturating 97% on nasal cannula at 1 liter. INTAKE AND OUTPUT: Urine output is not recorded. Weight on the bed scale is 67.8 kg. PHYSICAL EXAMINATION: GENERAL: Patient is awake, alert, oriented times two, laying in bed, sleepy and drowsy, getting hemodialysis done. HEAD AND NECK EXAM: Pupils are equally round and reactive to light. Mucous membranes are moist. Neck is supple. There is no jugular venous distension (JVD). CARDIOVASCULAR: S1, S2 irregular rate. No edema of the bilateral lower extremities. RESPIRATORY: Chest is clear to auscultation bilaterally. Bilateral equal air entry. No rales or rhonchi. ABDOMEN: Soft, obese. Positive bowel sounds. No organomegaly. MUSCULOSKELETAL: He had bilateral lower extremity transmetatarsal amputations, covered with a dressing. CENTRAL NERVOUS SYSTEM: Patient is obtunded and sleepy, follows commands. Wakes up on loud commands. LAB REVIEW: CBC showed a WBC of 4, hemoglobin 10.5, platelets are 102. BMP showed sodium 134, potassium 4.2, chloride 102, bicarb 23, BUN 21, creatinine is 4.9, magnesium is 2.3. CURRENT INPATIENT MEDICATIONS: The patient's medications were all reviewed by me. His IV D10 has been stopped. He continues to be on Zosyn 2.25 grams every 12 hours. No other change in the medications today as compared with yesterday. ASSESSMENT/PLAN: 1. End stage renal disease on hemodialysis. The patient's is being dialyzed according to his regular Sunday, and Sunday schedule today because of the holiday schedule. Ultrafiltration goal will be around 2 liters as tolerated by his blood pressure. 2. Chronic systolic congestive heart failure (CHF). Volume status is optimized. As mentioned above, 2 liters of fluid will be removed. No evidence of lower extremity edema. 3. Recurrent hypoglycemia. The patient is eating more now. His D10 has been stopped by the primary team. Continue to monitor fingerstick blood glucose levels. 4. Chronic osteomyelitis. The patient is getting IV Zosyn dosed as per renal function. 5. Metabolic encephalopathy. No clear etiology at this point, however, given that patient is on Zosyn for many days, it is possible that the patient might have a piperacillin induced encephalopatphy. I have discussed this with the primary team and they discuss with infectious disease about the possibility of switching his antibiotics. 6. Anemia and end stage renal disease. Hemoglobin is 10.5, which is optimal.
[2018-04-16] MEDS: HALOPERIDOL 5 MG/ML VIAL (J1630) IV PRN (17:38)
[2018-04-16 18:00] VITALS: BP 118/58
[2018-04-16] MEDS: ATORVASTATIN 20 MG TAB PO SCH (20:03)
[2018-04-16 22:00] VITALS: BP 118/82
[2018-04-17 02:00] VITALS: BP 140/60
[2018-04-17] MEDS: HEPARIN SOD (PORCINE) 5000 UNITS/ML VIAL SC SCH ×3 (05:11→21:10)
[2018-04-17] MEDS: PIPERACILLIN/TAZOBACTAM SOD 2.25 GM in D5W MINI-BAG PLUS 50 ML IV SCH (05:12)
[2018-04-17 05:46] LABS: HEMATOCRIT 34.1 % (42.0-52.0); HEMOGLOBIN 10.6 g/dl (13.5-17.5); MEAN CORPUSCULAR HEMOGLOBIN 28.6 pg (27.0-33.0); MEAN CORPUSCULAR HGB CONC 31.1 g/dl (32.0-36.5); MEAN CORPUSCULAR VOLUME 92.2 fl (80.0-96.0); PLATELET COUNT, AUTOMATED 120 10^3/uL (150-450); WHITE BLOOD COUNT 4.1 10^3/uL (4.0-10.0)
[2018-04-17 06:00] VITALS: BP 135/62
[2018-04-17 06:14] LABS: CALCIUM LEVEL 8.2 MG/DL (8.8-10.2); CREATININE FOR GFR 4.8 MG/DL (0.70-1.30); GLOMERULAR FILTRATION RATE 13.2 (>49); MAGNESIUM LEVEL 2.3 MG/DL (1.8-2.4); POTASSIUM SERUM 4.5 MEQ/L (3.5-5.1)
[2018-04-17] MEDS: guaiFENesin ER 600 MG TAB PO SCH ×3 (08:28→21:45)
[2018-04-17] MEDS: FAMOTIDINE 20 MG TAB PO SCH (08:28)
[2018-04-17] MEDS: CLOPIDOGREL 75 MG TAB PO SCH (08:28)
[2018-04-17] MEDS: ASPIRIN 81 MG ENTERIC TAB PO SCH (08:28)
[2018-04-17] MEDS: NEPHRO-VIT TAB (NEPHROCAPS) PO SCH (08:28)
[2018-04-17] MEDS: FERROUS SULFATE 325MG TAB PO SCH (08:28)
[2018-04-17] MEDS: METOPROLOL SUCC (TopROL XL) 50MG **XL** TAB PO SCH (08:29)
[2018-04-17 10:00] VITALS: BP 136/64
--- NOTE | 2018-04-17 11:49 | IPNPDOC ---
Date Seen The patient was seen on 04/17/18. Progress Note SUBJECTIVE: Patient complains once again that he would like to get up and walk he tells me tried again to wheelchair yesterday but was unsuccessful he otherwise has no specific complaints at this time he denies any pain he is awake alert eating breakfast and conversant OBJECTIVE: Vital signs: Listed below. GENERAL: No sign of acute distress. Sitting up eating bed appears quite comfortable HEENT: Normocephalic, atraumatic, extraocular motor grossly intact. CARDIOVASCULAR: Positive S1, S2, regular rate. LUNGS: Clear bilaterally EXTREMITIES: Bilateral lower extremity partial amputation wrapped with dressing. No lower extremity swelling. LABORATORY DATA: Listed below. ASSESSMENT AND PLAN: 1. Chronic osteomyelitis: Patient has been on Zosyn since hospitalized as per infectious disease last note he was to complete 1 additional month of antibiotics at this point it appears as though he is had 6 weeks I'll discontinue IV Zosyn and monitor his ESR is within the normal ranges CRP is mildly elevated we'll monitor him closely. We did have nursing staff rechecked Dr. Downey to confirm that he should be nonweightbearing on both of his lower extremities the time being we'll be wheelchair bound I have asked physical therapy to reassess him based on this recommendation and his ability to return home. The patient does have an element of peripheral arterial disease and intervention was planned for the left lower extremity is well this could likely be completed outpatient as that is how it was initially being explored 2. Peripheral vascular disease. As outlined above 3. Delirium: Patient seems respond better to Kh[place] he was interactive once again for me today, Neurology consulted. Recommend conservative medical managements related to his chronic infection and antibiotics EEG suggestive of metabolic encephalopathy MRI unrevealing. At this time we are discontinuing antibiotics his infection appears to be under control 4. Decompensated systolic congestive heart failure with EF of 30%.Fluid management through hemodialysis. He appears much better compensated at this time 5. End stage renal disease. Dialysis day Sunday, and Sunday. Nephrology help is greatly appreciated 6. History of coronary artery disease, on aspirin, Plavix, and beta blockers and statin. 7. Deep vein thrombosis prophylaxis on Heparin. Disposition: correction versus home as early as Sunday VS, I&O, 24H, Fishbone Vital Signs/I&O Vital Signs Date Time Temp Pulse Resp B/P (MAP) Pulse Ox O2 Delivery O2 Flow Rate FiO2 04/17/18 10:00 97.0 61 20 136/64 (88) 91 Nasal Cannula 1.0 I&O- Last 24 Hours up to 6 AM 04/17/18 06:00 Intake Total 1025 ml Output Total 0 ml Balance 1025 ml Laboratory Data 24H LABS Laboratory Tests 2 04/16/18 23:54: Bedside Glucose (Misc Panel) 76L 04/17/18 05:21: Nucleated Red Blood Cells % (auto) 0.0, Anion Gap 10, Glomerular Filtration Rate 13.2L, Blood Urea Nitrogen 24#H, Creatinine 4.80H, Sodium Level 135L, Potassium Level 4.5, Chloride Level 103, Carbon Dioxide Level 22, Calcium Level 8.2L, Magnesium Level 2.3 CBC/BMP Laboratory Tests 04/17/18 05:21 Red Blood Count 3.70 L, Mean Corpuscular Volume 92.2, Mean Corpuscular Hemoglobin 28.6, Mean Corpuscular Hemoglobin Concent 31.1 L, Red Cell Distribution Width 19.9 H, Calcium Level 8.2 L АННА FELIZ MD Apr 17, 2018 11:49
[2018-04-17 14:00] VITALS: BP 139/63
--- NOTE | 2018-04-17 16:24 | IPN ---
DATE: 04/16/2018 SUBJECTIVE: The patient was seen and examined at the bedside today morning. The patient is afebrile, hemodynamically stable. Still sleepy, but follows commands. He was dialyzed yesterday. He tolerated the hemodialysis procedure well. OBJECTIVE: VITAL SIGNS: Temperature is 97.3 degrees Fahrenheit. Blood pressure 137/64, pulse is 63, respiratory rate of 18, saturating 95% on nasal cannula at 1 liters. Intake and output: Ultrafiltration with hemodialysis was 2 liters yesterday. Weight on the bed scale is 65.9 kg. PHYSICAL EXAMINATION: GENERAL: The patient is awake, alert and oriented times two. Laying in bed. No apparent distress. HEAD/NECK: Pupils equally round and reactive to light. Mucous membranes are moist. Neck is supple. Right IJ tunneled hemodialysis catheter was noted. CARDIOVASCULAR: S1, S2, irregular rate. No edema of the bilateral lower extremities. RESPIRATORY: Chest is clear to auscultation bilaterally. Bilateral equal air entry. No rales or rhonchi. ABDOMEN: Soft. Positive bowel sounds. Nontender. No organomegaly. MUSCULOSKELETAL: He has bilateral transmetatarsal amputations of both feet, covered with dressings. CENTRAL NERVOUS SYSTEM: The patient is oriented times two. Reports that he is drowsy, otherwise, he follows commands. LAB REVIEW: CBC shows WBC 4.5, hemoglobin 10.6, platelets are 97, BMP showed sodium 134, potassium 4, chloride 104, bicarbonate 3, BUN 14, creatinine is 3.6. Glucose of 77. CURRENT INPATIENT MEDICATIONS: Patient's medications are all reviewed by me. 10% dextrose was stopped yesterday. No other change in the medications today as compared with yesterday. ASSESSMENT AND PLAN: 1. End-stage renal disease, on hemodialysis. Patient's regular dialysis days are Sunday, , Sunday. He was dialyzed yesterday because of the holiday schedule. Next hemodialysis will be on . Volume status is optimized. 2. Chronic systolic congestive heart failure. His volume is being optimized with dialysis. 2 liters of fluid was removed. No evidence of edema on clinical exam. 3. Hypertension with end-stage renal disease. Continue current dose of metoprolol. 4. Chronic osteomyelitis of bilateral lower extremity. Patient is getting Zosyn as per primary team. 5. Metabolic encephalopathy. Patient still has some drowsiness. There is a possibility that it might be associated with antibiotics. Decision to switch the antibiotics is as per primary team. I already discussed this with the hospitalist yesterday afternoon.
[2018-04-17 18:00] VITALS: BP 139/76
[2018-04-17] MEDS: ATORVASTATIN 20 MG TAB PO SCH ×2 (21:10→21:46)
[2018-04-17 22:00] VITALS: BP 145/76
[2018-04-18] MEDS: HALOPERIDOL 5 MG/ML VIAL (J1630) IV PRN (00:18)
[2018-04-18 02:00] VITALS: BP 146/97
[2018-04-18 05:59] LABS: HEMATOCRIT 34.2 % (42.0-52.0); HEMOGLOBIN 10.7 g/dl (13.5-17.5); MEAN CORPUSCULAR HEMOGLOBIN 28.8 pg (27.0-33.0); MEAN CORPUSCULAR HGB CONC 31.3 g/dl (32.0-36.5); MEAN CORPUSCULAR VOLUME 92.2 fl (80.0-96.0); PLATELET COUNT, AUTOMATED 162 10^3/uL (150-450); RED BLOOD COUNT 3.71 10^6/uL (4.30-6.10); WHITE BLOOD COUNT 4.5 10^3/uL (4.0-10.0)
[2018-04-18 06:00] VITALS: BP 145/93
[2018-04-18] MEDS: NEPHRO-VIT TAB (NEPHROCAPS) PO SCH (06:38)
[2018-04-18] MEDS: ASPIRIN 81 MG ENTERIC TAB PO SCH (06:38)
[2018-04-18] MEDS: FERROUS SULFATE 325MG TAB PO SCH (06:39)
[2018-04-18] MEDS: METOPROLOL SUCC (TopROL XL) 50MG **XL** TAB PO SCH (06:39)
[2018-04-18] MEDS: CLOPIDOGREL 75 MG TAB PO SCH (06:39)
[2018-04-18] MEDS: FAMOTIDINE 20 MG TAB PO SCH (06:39)
[2018-04-18] MEDS: guaiFENesin ER 600 MG TAB PO SCH ×2 (06:39→20:45)
[2018-04-18] MEDS: HEPARIN SOD (PORCINE) 5000 UNITS/ML VIAL SC SCH ×3 (06:40→21:01)
[2018-04-18 07:24] LABS: CALCIUM LEVEL 8.1 MG/DL (8.8-10.2); CREATININE FOR GFR 5.82 MG/DL (0.70-1.30); GLOMERULAR FILTRATION RATE 10.6 (>49); MAGNESIUM LEVEL 2.5 MG/DL (1.8-2.4)
[2018-04-18 10:00] VITALS: BP 145/93
--- NOTE | 2018-04-18 11:55 | IPNPDOC ---
Date Seen The patient was seen on 04/18/18. Progress Note SUBJECTIVE: Patient complains once again that he would like to get up and walk I did explain him once again that he should be nonweightbearing on both of his feet given his wounds and as per Dr. Downey's recommendations otherwise he feels well and has no complaints OBJECTIVE: Vital signs: Listed below. GENERAL: No sign of acute distress. Sitting up in bed appears quite comfortable HEENT: Normocephalic, atraumatic, extraocular motor grossly intact. CARDIOVASCULAR: S1, S2, regular rate. LUNGS: Clear bilaterally EXTREMITIES: Bilateral lower extremity partial amputation wrapped with dressing. No lower extremity swelling. LABORATORY DATA: Listed below. ASSESSMENT AND PLAN: 1. Chronic osteomyelitis: Patient has completed a total of 6 weeks of antibiotics since his last infectious disease appointment I have already discontinued all antibiotics we are monitoring him closely require outpatient follow-up with infectious disease and vascular surgery and wound care. Dr. Downey to confirm that he should be nonweightbearing on both of his lower extremities for the time being, he will be wheelchair bound I have asked physical therapy to reassess him based on this recommendation and his ability to return home with a [facility] versus rehabilitation. The patient does have an element of peripheral arterial disease and intervention was planned for the left lower extremity is well this could likely be completed outpatient as that is how it was initially being explored 2. Peripheral vascular disease. As outlined above 3. Delirium: Patient seems respond better to Khmer he was interactive once again for me today, Neurology consulted. Recommend conservative medical managements related to his chronic infection and antibiotics EEG suggestive of metabolic encephalopathy MRI unrevealing. We have discontinued antibiotics his infection appears to be under control his mental status appears to be quite stable and improving to me 4. Decompensated systolic congestive heart failure with EF of 30%.Fluid management through hemodialysis. He appears much better compensated at this time 5. End stage renal disease. Dialysis day Sunday, and Sunday. Nephrology help is greatly appreciated 6. History of coronary artery disease, on aspirin, Plavix, and beta blockers and statin. 7. Deep vein thrombosis prophylaxis on Heparin. 8. Nasal cannula oxygen: His sats appear to be quite good on 1 L is hypokalemic and a room air Disposition: Rehabilitation versus home with a [facility] VS, I&O, 24H, Fishbone Vital Signs/I&O Vital Signs Date Time Temp Pulse Resp B/P (MAP) Pulse Ox O2 Delivery O2 Flow Rate FiO2 04/18/18 08:00 1.0 04/18/18 06:39 66 145/93 04/18/18 06:00 96.8 18 96 Nasal Cannula l I&O- Last 24 Hours up to 6 AM 04/18/18 06:00 Intake Total 870 ml Output Total 0 ml Balance 870 ml Laboratory Data 24H LABS Laboratory Tests 2 04/17/18 12:25: Bedside Glucose (Misc Panel) 127H 04/17/18 19:24: Bedside Glucose (Misc Panel) 92 04/18/18 04:01: Bedside Glucose (Misc Panel) 97 04/18/18 05:20: Nucleated Red Blood Cells % (auto) 0.0 04/18/18 06:57: Anion Gap 8, Glomerular Filtration Rate 10.6L, Blood Urea Nitrogen 36H, Creatinine 5.82H, Sodium Level 137, Potassium Level 6.0H, Chloride Level 109H, Carbon Dioxide Level 20L, Calcium Level 8.1L, Magnesium Level 2.5H CBC/BMP Laboratory Tests 04/18/18 05:20 Red Blood Count 3.71 L, Mean Corpuscular Volume 92.2, Mean Corpuscular Hemoglobin 28.8, Mean Corpuscular Hemoglobin Concent 31.3 L, Red Cell Distribution Width 19.7 H 04/18/18 06:57 Calcium Level 8.1 L АННА FELIZ MD Apr 18, 2018 11:55
[2018-04-18 14:00] VITALS: BP 142/66
--- NOTE | 2018-04-18 16:44 | IPN ---
DATE: 04/17/2018 SUBJECTIVE: Patient was seen and examined at the bedside today morning. Patient is much more awake and alert today. His IV antibiotics have been stopped. He is afebrile and hemodynamically stable. Patient reports that he ate his breakfast today morning. OBJECTIVE: VITAL SIGNS: Temperature is 97 degrees Fahrenheit, blood pressure 136/64, pulse 61, respiratory rate of 20, saturating 91% on nasal cannula at 1 liter. INTAKE AND OUTPUT: There is no urine output recorded. Weight in the bed scale is 66.3 kg. His last hemodialysis was on 04/15/2018. PHYSICAL EXAMINATION: GENERAL: Patient is awake, alert, oriented times two, laying in bed, no apparent distress. HEAD and NECK EXAM: Extraocular muscles intact. Pupils equally round and reactive to light. Mucous membranes are moist. Neck is supple, there is no jugular venous distention (JVD). CARDIOVASCULAR: S1, S2, irregular rate. No edema of the bilateral lower extremities. RESPIRATORY: Chest is clear to auscultation bilaterally. Bilateral equal air entry. No rales or rhonchi. ABDOMEN: Soft, obese, positive bowel sounds, nontender. MUSCULOSKELETAL: He has bilateral transmetatarsal amputations of both feet covered with dressings. CENTRAL NERVOUS SYSTEM (INFECTIOUS DISEASE TECHNICIAN): No focal deficit. Power is 5/5 in bilateral upper extremities. He is oriented times two. LABORATORY REVIEW: CBC showed WBC 4.1, hemoglobin 10.6, platelets are 120. BMP showed sodium 135, potassium 4.5, chloride 103, bicarbonate 22, BUN 24, creatinine is 4.8, calcium 8.2. CURRENT INPATIENT MEDICATIONS: Patient's medications were all reviewed by me. His IV Zosyn has been stopped. No other change in the medications today as compared with yesterday. ASSESSMENT AND PLAN: 1. End-stage renal disease on hemodialysis. Patient's regular dialysis days are Sunday, , Sunday. Volume status is optimal. He will be dialyzed tomorrow morning. 2. Chronic systolic congestive heart failure. Patient is no longer on IV dextrose fluid. He is on an oral fluid restriction. I shall try to remove about 2.5 liters of fluid during hemodialysis. No evidence of edema at this point. 3. Chronic osteomyelitis. Patient was on IV Zosyn which has been stopped now. Rest of the management is as per primary team. 4. Metabolic encephalopathy. Patient is clinically significantly better. He is awake and alert, he was able to communicate with me and he reports he ate his breakfast today morning. 5. Anemia in end-stage renal disease. Hemoglobin is 10.6. Continue current dose of oral iron tablet daily. Patient is not on Aranesp at this point.
[2018-04-18] MEDS: ATORVASTATIN 20 MG TAB PO SCH (20:45)
[2018-04-18 22:00] VITALS: BP 141/83
[2018-04-19 02:00] VITALS: BP 125/59
[2018-04-19 06:00] VITALS: BP 105/53
[2018-04-19] MEDS: HEPARIN SOD (PORCINE) 5000 UNITS/ML VIAL SC SCH ×3 (06:09→22:00)
[2018-04-19 06:12] LABS: HEMATOCRIT 32.9 % (42.0-52.0); HEMOGLOBIN 10.4 g/dl (13.5-17.5); MEAN CORPUSCULAR HEMOGLOBIN 28.6 pg (27.0-33.0); MEAN CORPUSCULAR HGB CONC 31.6 g/dl (32.0-36.5); MEAN CORPUSCULAR VOLUME 90.4 fl (80.0-96.0); PLATELET COUNT, AUTOMATED 131 10^3/uL (150-450); RED BLOOD COUNT 3.64 10^6/uL (4.30-6.10); WHITE BLOOD COUNT 4.5 10^3/uL (4.0-10.0)
[2018-04-19 06:42] LABS: CALCIUM LEVEL 8.2 MG/DL (8.8-10.2); CREATININE FOR GFR 4.43 MG/DL (0.70-1.30); GLOMERULAR FILTRATION RATE 14.5 (>49); MAGNESIUM LEVEL 2.5 MG/DL (1.8-2.4); POTASSIUM SERUM 3.7 MEQ/L (3.5-5.1)
[2018-04-19] MEDS: ASPIRIN 81 MG ENTERIC TAB PO SCH (08:07)
[2018-04-19] MEDS: NEPHRO-VIT TAB (NEPHROCAPS) PO SCH (08:07)
[2018-04-19] MEDS: FERROUS SULFATE 325MG TAB PO SCH (08:08)
[2018-04-19] MEDS: METOPROLOL SUCC (TopROL XL) 50MG **XL** TAB PO SCH ×2 (08:08→08:09)
[2018-04-19] MEDS: FAMOTIDINE 20 MG TAB PO SCH (08:09)
[2018-04-19] MEDS: guaiFENesin ER 600 MG TAB PO SCH ×2 (08:09→21:00)
[2018-04-19] MEDS: CLOPIDOGREL 75 MG TAB PO SCH (08:09)
[2018-04-19 10:00] VITALS: BP 104/58
--- NOTE | 2018-04-19 12:58 | IPN ---
DATE: 04/18/2018 SUBJECTIVE: Patient was seen and examined at the bedside today morning. Patient is sleepy and drowsy. Otherwise he follows some commands. He is hemodynamically stable. Patient is due to hemodialysis today in the afternoon. OBJECTIVE: Vital signs: Temperature is 96.8 degrees Fahrenheit, blood pressure 145/93, pulse is 66, respiratory rate of 18, saturating 96% on nasal cannula at 1 liter. Intake and output: Urine output is not recorded. Weight in the bed scale is 66.3 kg. PHYSICAL EXAMINATION: GENERAL: Patient is drowsy and sleepy. He is oriented times two, lying in bed. No apparent distress. HEAD AND NECK: Pupils equally round and reactive to light. Mucous membranes are moist. Neck is supple. He has a right internal jugular (IJ) tunneled hemodialysis catheter. CARDIOVASCULAR: S1, S2, irregular rate. No edema of the bilateral lower extremities. RESPIRATORY: Chest is clear to auscultation bilaterally. Bilateral equal air entry. No rales or rhonchi. ABDOMEN: Soft. Positive bowel sounds. Nontender. No organomegaly. MUSCULOSKELETAL: He has bilateral transmetatarsal amputations with dressings on the stumps. Right leg femoral-popliteal bypass graft is palpable in the lateral aspect of the right thing. CENTRAL NERVOUS SYSTEM: Patient is oriented times two, drowsy and sleepy but follows commands. LABORATORY REVIEW: CBC showed a WBC 4.5, hemoglobin 10.7, platelets are 162. BMP showed sodium 137, potassium is 6, chloride 109, bicarbonate 20, BUN 36, potassium is 5.8, calcium 8.1, magnesium is 2.5. CURRENT INPATIENT MEDICATIONS: Patient's medications were all reviewed by me. His Haldol has been stopped. There is no other change in the medications today as compared with yesterday. ASSESSMENT AND PLAN: 1. End-stage renal disease, on hemodialysis. Patient's regular dialysis days are Sunday, , Sunday. Today is the regular day. He will be dialyzed shortly in the afternoon today. I will try to remove about 2 kg of fluid as tolerated by his blood pressure. 2. Hyperkalemia. It is secondary to end-stage renal disease, and he has not been dialyzed for the last 2 days because of the holiday schedule. He will be dialyzed with a 1K bath today. Potassium is expected to improve shortly with dialysis. 3. Chronic systolic congestive heart failure. Volume status is optimized. Two liters of fluid will be removed. Continue fluid restriction. 4. Hypertension with end-stage renal disease. Blood pressure is optimal with current dose of metoprolol. 5. Metabolic encephalopathy. Patient has waxing and waning mental status. He is arousable today. All of his central nervous system (COMMODITY MANAGEMENT SPECIALIST) medications are on hold. Antibiotics were also stopped. 6. Chronic osteomyelitis of the bilateral lower extremities. Patient already finished the antibiotic course. He will need to followup with wound care as outpatient. Rest of the management is as per primary team and infectious disease recommendations.
[2018-04-19 14:00] VITALS: BP 128/67
--- NOTE | 2018-04-19 16:27 | IPNPDOC ---
Date Seen The patient was seen on 04/19/18. Progress Note SUBJECTIVE: Patient complains once again that he would like to get up and walk overnight he reportedly attempted and weight on his feet despite being nonweightbearing and he did have some abrasions to his lower extremity wounds bilaterally. He is frustrated and states that he wants to walk OBJECTIVE: Vital signs: Listed below. GENERAL: No sign of acute distress. Sitting up in bed appears quite comfortable HEENT: Normocephalic, atraumatic, extraocular motor grossly intact. CARDIOVASCULAR: S1, S2, regular rate. LUNGS: Clear bilaterally EXTREMITIES: Bilateral lower extremity partial amputation wrapped with dressing which is serosanguineous stained. No lower extremity swelling. LABORATORY DATA: Listed below. ASSESSMENT AND PLAN: 1. Chronic osteomyelitis: Patient has completed a total of 6 weeks of antibiotics since his last infectious disease appointment I have already discontinued all antibiotics we are monitoring him closely, he will require outpatient follow-up with infectious disease and vascular surgery and wound care. Dr. Downey to confirm that he should be nonweightbearing on both of his lower extremities for the time being, he will be wheelchair bound thus far he has not performed well with physical therapy in terms of transfers or well with compliance I did a lengthy discussion with physical therapy and nursing staff today who feel he is not safe to go home and complete transfers even with Clemente lift which I concur with as such I feel he'll be more appropriate for senior living facility placement and will discuss further with family PFS help greatly appreciated as well 2. Peripheral vascular disease. As outlined above 3. Delirium: Patient seems respond better to Indonesian he was interactive once again for me today, Neurology consulted. Recommend conservative medical managements related to his chronic infection and antibiotics both of which appear to have been addressed and his mental status appears to be improving daily EEG suggestive of metabolic encephalopathy MRI unrevealing. 4. Decompensated systolic congestive heart failure with EF of 30%.Fluid management through hemodialysis. He appears much better compensated at this time. He is somewhat hypoxic and we are unable to wean him from his 1 L of oxygen I will check a chest x-ray he previously was volume overloaded however clinically he does not appear to be that way at this time 5. End stage renal disease. Dialysis day Sunday, and Sunday. Nephrology help is greatly appreciated 6. History of coronary artery disease, on aspirin, Plavix, and beta blockers and statin. 7. Deep vein thrombosis prophylaxis on Heparin. Disposition: Rehabilitation versus senior living VS, I&O, 24H, Fishbone Vital Signs/I&O Vital Signs Date Time Temp Pulse Resp B/P (MAP) Pulse Ox O2 Delivery O2 Flow Rate FiO2 04/19/18 14:00 96.8 59 18 128/67 (87) 95 Nasal Cannula 1.0 I&O- Last 24 Hours up to 6 AM 04/19/18 06:00 Intake Total 960 ml Output Total 2000 ml Balance -1040 ml Laboratory Data 24H LABS Laboratory Tests 2 04/18/18 20:38: Bedside Glucose (Misc Panel) 111 04/19/18 05:19: Nucleated Red Blood Cells % (auto) 0.0, Anion Gap 11, Glomerular Filtration Rate 14.5L, Blood Urea Nitrogen 22H, Creatinine 4.43H, Sodium Level 137, Potassium Level 3.7#, Chloride Level 101, Carbon Dioxide Level 25, Calcium Level 8.2L, Magnesium Level 2.5H CBC/BMP Laboratory Tests 04/19/18 05:19 Red Blood Count 3.64 L, Mean Corpuscular Volume 90.4, Mean Corpuscular Hemoglobin 28.6, Mean Corpuscular Hemoglobin Concent 31.6 L, Red Cell Distribution Width 19.3 H, Calcium Level 8.2 L АННА FELIZ MD Apr 19, 2018 16:27
[2018-04-19 18:00] VITALS: BP 139/63
--- NOTE | 2018-04-19 18:55 | REP ---
Clinical: Hypoxia. Technique: AP and cross-table lateral views. Comparison: 04/12/2018. Findings: Double-lumen dialysis catheter with tip in the SVC/right atrium. Mild cardiomegaly is suggested. Pulmonary edema including indistinct pulmonary vasculature at the hilum, cephalization, and bilateral lower lobe opacities with pleural effusions are again identified. Scattered basilar atelectasis likely. No pneumothorax. Skeletal structures intact. Impression: Pulmonary edema pattern with moderate pleural effusions and bibasilar atelectasis. Electronically Signed by Osman Moffett MD 04/19/2018 06:46 P
[2018-04-19] MEDS: ATORVASTATIN 20 MG TAB PO SCH (21:00)
[2018-04-19 22:00] VITALS: BP 144/81
[2018-04-20 02:00] VITALS: BP 143/78
[2018-04-20] MEDS: HEPARIN SOD (PORCINE) 5000 UNITS/ML VIAL SC SCH ×3 (05:27→22:41)
[2018-04-20 05:37] LABS: HEMATOCRIT 31.8 % (42.0-52.0); HEMOGLOBIN 10.2 g/dl (13.5-17.5); MEAN CORPUSCULAR HEMOGLOBIN 28.6 pg (27.0-33.0); MEAN CORPUSCULAR HGB CONC 32.1 g/dl (32.0-36.5); MEAN CORPUSCULAR VOLUME 89.1 fl (80.0-96.0); PLATELET COUNT, AUTOMATED 166 10^3/uL (150-450); RED BLOOD COUNT 3.57 10^6/uL (4.30-6.10); WHITE BLOOD COUNT 5.1 10^3/uL (4.0-10.0)
[2018-04-20 06:00] VITALS: BP 111/60
[2018-04-20 06:01] LABS: CREATININE FOR GFR 5.72 MG/DL (0.70-1.30); GLOMERULAR FILTRATION RATE 10.8 (>49); MAGNESIUM LEVEL 2.5 MG/DL (1.8-2.4); POTASSIUM SERUM 4.4 MEQ/L (3.5-5.1)
[2018-04-20] MEDS: CLOPIDOGREL 75 MG TAB PO SCH (08:33)
[2018-04-20] MEDS: guaiFENesin ER 600 MG TAB PO SCH ×2 (08:34→22:41)
[2018-04-20] MEDS: METOPROLOL SUCC (TopROL XL) 50MG **XL** TAB PO SCH (08:34)
[2018-04-20] MEDS: ASPIRIN 81 MG ENTERIC TAB PO SCH (08:34)
[2018-04-20] MEDS: NEPHRO-VIT TAB (NEPHROCAPS) PO SCH (08:34)
[2018-04-20] MEDS: FAMOTIDINE 20 MG TAB PO SCH (08:34)
[2018-04-20] MEDS: FERROUS SULFATE 325MG TAB PO SCH (08:34)
--- NOTE | 2018-04-20 10:08 | IPNPDOC ---
Date Seen The patient was seen on 04/20/18. Progress Note SUBJECTIVE: Patient wakes up to speak to me but tells me he is sleepy he has no complaints today no shortness of breath no fevers or chills no pains. OBJECTIVE: Vital signs: Listed below. GENERAL: No sign of acute distress. Sleeping comfortably in bed easily arousable to verbal stimuli HEENT: Normocephalic, atraumatic, extraocular motor grossly intact. CARDIOVASCULAR: S1, S2, regular rate. LUNGS: Clear bilaterally EXTREMITIES: Bilateral lower extremity partial amputation wrapped with dressing. No lower extremity swelling. LABORATORY DATA: Listed below. ASSESSMENT AND PLAN: 1. Chronic osteomyelitis: Patient has completed a total of 6 weeks of antibiotics since his last infectious disease appointment I have already discontinued all antibiotics we are monitoring him closely, he will require outpatient follow-up with infectious disease and vascular surgery and wound care. Dr. Downey confirmed that he should be nonweightbearing on both of his lower extremities for the time being, he will be wheelchair bound thus far he has not performed well with physical therapy in terms of transfers or well with compliance. I did speak with his Lian today who informed me they previousl y had a bad experience at rehabilitation in the [place] and that is why they are not open to seeking out future rehabilitation placements. She tells me she would like to take him home I did inform her that at this time he is not safe to go home and we agreed to give him until Sunday to see how he progresses however should he not show significant gains with physical therapy I suspect he would need subacute rehabilitation versus jail facility placement. 2. Peripheral vascular disease. As outlined above 3. Delirium: Patient seems respond better to Armenian he was interactive once again for me today, I suspect he is close to his baseline 4. Decompensated systolic congestive heart failure with EF of 30%.Fluid management through hemodialysis. He appears much better compensated at this time. He is somewhat hypoxic and we are unable to wean him from his 1 L of oxygen x-ray yesterday did confirm pulmonary edema and bilateral effusions which I suspected I think he'll benefit from further fluid removal during hemodialysis 5. End stage renal disease. Dialysis day Sunday, and Sunday. Nephrology help is greatly appreciated 6. History of coronary artery disease, on aspirin, Plavix, and beta blockers and statin. 7. Deep vein thrombosis prophylaxis on Heparin. Disposition: Rehabilitation versus jail versus home in the coming days VS, I&O, 24H, Fishbone Vital Signs/I&O Vital Signs Date Time Temp Pulse Resp B/P (MAP) Pulse Ox O2 Delivery O2 Flow Rate FiO2 04/20/18 08:34 67 111/60 04/20/18 06:00 97.3 17 95 Nasal Cannula 0.5 I&O- Last 24 Hours up to 6 AM 04/20/18 06:00 Intake Total 630 ml Output Total 0 ml Balance 630 ml Laboratory Data 24H LABS Laboratory Tests 2 04/19/18 11:26: Bedside Glucose (Misc Panel) 102 04/19/18 17:04: Bedside Glucose (Misc Panel) 96 04/20/18 00:26: Bedside Glucose (Misc Panel) 82 04/20/18 04:53: Nucleated Red Blood Cells % (auto) 0.0, Anion Gap 8, Glomerular Filtration Rate 10.8L, Blood Urea Nitrogen 32H, Creatinine 5.72H, Sodium Level 138, Potassium Level 4.4, Chloride Level 104, Carbon Dioxide Level 26, Calcium Level 8.0L, Magnesium Level 2.5H CBC/BMP Laboratory Tests 04/20/18 04:53 Red Blood Count 3.57 L, Mean Corpuscular Volume 89.1, Mean Corpuscular Hemo globin 28.6, Mean Corpuscular Hemoglobin Concent 32.1, Red Cell Distribution Width 19.5 H, Calcium Level 8.0 L АННА FELIZ MD Apr 20, 2018 10:08
[2018-04-20] MEDS ORDERED: HEPARIN 1,000 UNITS/ML 10ML VIAL (FOR RADIOLOGY& DIALYSIS ONLY) XX ONE (10:45)
--- NOTE | 2018-04-20 12:01 | IPN ---
DATE: 04/19/2018 SUBJECTIVE: Patient was seen and examined at the bedside today morning. He is afebrile and hemodynamically stable. He was dialyzed yesterday 2 liters of fluid was removed and he tolerated the hemodialysis procedure well. He denies any active complaints. OBJECTIVE: VITAL SIGNS: Temperature 96.8 degrees Fahrenheit, blood pressure 104/58, pulse 58, respiratory rate 20, saturating 96 on nasal cannula at 1 liter. INTAKE AND OUTPUT: Urine output is not recorded. Ultrafiltration with hemodialysis was 2 liters yesterday. Weight in the bed scale is 64.2 kg. PHYSICAL EXAMINATION: GENERAL: Patient is awake, alert, oriented times two laying in bed, sleepy and drowsy, otherwise follows commands. HEAD AND NECK: Pupils are equally round and reactive to light. Mucous membranes are moist. NECK: Supple. He has a right IJ tunneled hemodialysis catheter. CARDIOVASCULAR: S1, S2 regular rate. No edema of the bilateral lower extremities. RESPIRATORY: Chest is clear to auscultation bilaterally. Bilateral equal air entry. No rales or rhonchi. ABDOMEN: Soft with positive bowel sounds. Nontender and no organomegaly. Musculoskeletal, bilateral transmetatarsal amputation sites are covered with dressings. Right fem-pop bypass graft is palpable in the right lateral thigh. SONOSCOPE OPERATOR: Patient is oriented times two and follows commands. LAB REVIEW: CBC showed a WBC count 0.5, hemoglobin 9.4, platelets 131, BMP showed a sodium 137, potassium 3.7, chloride 101, bicarbonate 25, BUN 22, creatinine 4.4, calcium 8.2, magnesium 2.5. CURRENT INPATIENT MEDICATIONS: Patient's medications were all reviewed by me. There is no change in the medications today as compared with yesterday. ASSESSMENT AND PLAN: 1. End-stage renal disease on hemodialysis. Patient's regular dialysis days are Sunday, , Sunday. He was dialyzed yesterday. Next hemodialysis session will be tomorrow as per his regular schedule. 2. Chronic systolic congestive heart failure. Volume status is optimized. He gets 2 liters of fluid removed hemodialysis. 3. Hypertension with end-stage renal disease. Continue current dose of metoprolol. 4. Anemia and end stage renal disease. Hemoglobin is 10.4 which is optimal. He is currently on Aranesp. Continue current dose of iron tablet daily.
[2018-04-20 14:00] VITALS: BP 121/59
[2018-04-20 18:00] VITALS: BP 113/56
[2018-04-20 22:00] VITALS: BP 112/52
[2018-04-20] MEDS: ATORVASTATIN 20 MG TAB PO SCH (22:40)
[2018-04-21] MEDS: HEPARIN SOD (PORCINE) 5000 UNITS/ML VIAL SC SCH ×4 (05:41→21:24)
[2018-04-21 05:58] LABS: HEMATOCRIT 31.5 % (42.0-52.0); HEMOGLOBIN 9.9 g/dl (13.5-17.5); MEAN CORPUSCULAR HEMOGLOBIN 28.2 pg (27.0-33.0); MEAN CORPUSCULAR HGB CONC 31.4 g/dl (32.0-36.5); MEAN CORPUSCULAR VOLUME 89.7 fl (80.0-96.0); PLATELET COUNT, AUTOMATED 159 10^3/uL (150-450); RED BLOOD COUNT 3.51 10^6/uL (4.30-6.10); WHITE BLOOD COUNT 4.6 10^3/uL (4.0-10.0)
[2018-04-21 06:00] VITALS: BP 132/61
[2018-04-21 06:02] LABS: CALCIUM LEVEL 7.7 MG/DL (8.8-10.2); CREATININE FOR GFR 4.15 MG/DL (0.70-1.30); GLOMERULAR FILTRATION RATE 15.7 (>49); MAGNESIUM LEVEL 2.3 MG/DL (1.8-2.4); POTASSIUM SERUM 3.7 MEQ/L (3.5-5.1)
[2018-04-21] MEDS: NEPHRO-VIT TAB (NEPHROCAPS) PO SCH (09:03)
[2018-04-21] MEDS: FAMOTIDINE 20 MG TAB PO SCH (09:03)
[2018-04-21] MEDS: ASPIRIN 81 MG ENTERIC TAB PO SCH (09:03)
[2018-04-21] MEDS: CLOPIDOGREL 75 MG TAB PO SCH (09:03)
[2018-04-21] MEDS: FERROUS SULFATE 325MG TAB PO SCH (09:03)
[2018-04-21] MEDS: METOPROLOL SUCC (TopROL XL) 50MG **XL** TAB PO SCH (09:03)
[2018-04-21] MEDS: guaiFENesin ER 600 MG TAB PO SCH ×2 (09:03→21:24)
[2018-04-21 10:00] VITALS: BP 122/67
--- NOTE | 2018-04-21 12:28 | IPN ---
DATE: 04/20/2018 SUBJECTIVE: Patient was seen and examined at the bedside today morning during hemodialysis, he was tolerating the hemodialysis procedure well. He denies any active complaints. OBJECTIVE: VITAL SIGNS: Temperature 97.3 degrees Fahrenheit, blood pressure 111/60, pulse 67, respiratory rate 17, saturating 95% on nasal cannula at 0.5 liters. INTAKE AND OUTPUT: Urine output was not recorded. Weight in the bed scale is 65 kg. PHYSICAL EXAMINATION: GENERAL: Patient is awake, alert, oriented times two, laying in bed getting hemodialysis done. HEAD AND NECK EXAMINATION: Pupils equally round and reactive to light. Mucous membranes are moist. Neck is supple. He has a right internal jugular (IJ) tunneled hemodialysis catheter being used for dialysis. CARDIOVASCULAR: S1, S2. Regular rate. No edema of the bilateral lower extremities. RESPIRATORY: Chest is clear to auscultation bilaterally. Bilateral equal air entry. No rales or rhonchi. ABDOMEN: Soft. Positive bowel sounds. Nontender. No organomegaly. MUSCULOSKELETAL: Patient has bilateral lower extremity transmetatarsal amputations covered with dressings. A right-sided femoral bypass was palpable in the thigh. CENTRAL NERVOUS SYSTEM: He is oriented times two, follows commands. LABORATORY REVIEW: Complete blood count (CBC) showed WBC 5.1, hemoglobin 10.2, platelets 166. Basic metabolic panel (BMP) showed sodium 138, potassium 4.4, chloride 104, bicarbonate 26, BUN 32, creatinine 5.7, calcium 8, magnesium 2.5. CURRENT INPATIENT MEDICATIONS: Patient's medications were all reviewed by me. No change in the medications today as compared with yesterday. ASSESSMENT AND PLAN: 1. End-stage renal disease on hemodialysis. Patient's regular dialysis days are Sunday, , Sunday. He is being dialyzed according to his regular schedule. I will try to do an ultrafiltration of at least 2 liters as tolerated by his blood pressure. 2. Chronic systolic congestive heart failure. Volume status is being optimized with hemodialysis. He is on low dose of metoprolol, which he is tolerating at this point. 3. Anemia of end-stage renal disease. Hemoglobin is 10.2, which is optimal. Patient is currently not on Aranesp at this point. 4. Hypertension in end-stage renal disease. Continue current dose of metoprolol.
--- NOTE | 2018-04-21 13:00 | IPNPDOC ---
Date Seen The patient was seen on 04/21/18. Progress Note SUBJECTIVE: Patient tells me that he is tired but is agreeable to have a conversation and does wake up to interact with me and answers all questions appropriately. Other than feeling tired he has no complaints in that he would like to go home OBJECTIVE: Vital signs: Listed below. GENERAL: No sign of acute distress. Sleeping comfortably in bed easily arousable to verbal stimuli HEENT: Normocephalic, atraumatic, extraocular motor grossly intact. CARDIOVASCULAR: S1, S2, regular rate. LUNGS: Clear bilaterally EXTREMITIES: Bilateral lower extremity partial amputation wrapped with dressing. No lower extremity swelling. LABORATORY DATA: Listed below. ASSESSMENT AND PLAN: 1. Chronic osteomyelitis: Patient has completed a total of 6 weeks of antibiotics since his last infectious disease appointment I have already discontinued all antibiotics we are monitoring him closely, he will require o utpatient follow-up with infectious disease and vascular surgery and wound care. Dr. Downey confirmed that he should be nonweightbearing on both of his lower extremities for the time being, he will be wheelchair bound thus far he has not performed well with physical therapy in terms of transfers or well with compliance. Yesterday spoke to the patient's and she adamantly refuses any rehabilitation placement the patient himself today is open to rehabilitation placement to both me that the previously had a very bad experience at a rehabilitation facility in the [place] which is why they're so against it. I did inform them both at this present state he is not safe to go home we will have him reassessed by physical therapy and occupational therapy tomorrow and go from there may benefit from correction placement 2. Peripheral vascular disease. As outlined above 3. Delirium: I suspect the patient is at his baseline 4. Decompensated systolic congestive heart failure with EF of 30%.Fluid management through hemodialysis. He appears much better compensated at this time. He is somewhat hypoxic and we are unable to wean him from his 0.5 L of oxygen nephrology help was continued throughout optimization is greatly appreciated 5. End stage renal disease. Dialysis day Sunday, and Sunday. Nephrology help is greatly appreciated 6. History of coronary artery disease, on aspirin, Plavix, and beta blockers and statin. 7. Deep vein thrombosis prophylaxis on Heparin. Disposition: Likely correction facility I suspect he can be made altered level care should he not progress with physical therapy VS, I&O, 24H, [facility] Vital Signs/I&O Vital Signs Date Time Temp Pulse Resp B/P (MAP) Pulse Ox O2 Delivery O2 Flow Rate FiO2 04/21/18 10:00 97.5 61 18 122/67 (85) 92 Nasal Cannula 0.5 I&O- Last 24 Hours up to 6 AM 04/21/18 06:00 Intake Total 270 ml Output Total 2000 ml Balance -1730 ml Laboratory Data 24H LABS Laboratory Tests 2 04/20/18 18:50: Bedside Glucose (Misc Panel) 127H 04/20/18 23:53: Bedside Glucose (Misc Panel) 71L 04/21/18 04:54: Nucleated Red Blood Cells % (auto) 0.0, Anion Gap 7L, Glomerular Filtration Rate 15.7L, Blood Urea Nitrogen 21H, Creatinine 4.15H, Sodium Level 138, Potassium Level 3.7, Chloride Level 102, Carbon Dioxide Level 29, Calcium Level 7.7L, Magnesium Level 2.3 CBC/BMP Laboratory Tests 04/21/18 04:54 Red Blood Count 3.51 L, Mean Corpuscular Volume 89.7, Mean Corpuscular Hemoglobin 28.2, Mean Corpuscular Hemoglobin Concent 31.4 L, Red Cell Distribution Width 19.4 H, Calcium Level 7.7 L АННА FELIZ MD Apr 21, 2018 13:00
[2018-04-21 14:00] VITALS: BP 132/60
[2018-04-21 18:00] VITALS: BP 145/70
[2018-04-21] MEDS: ATORVASTATIN 20 MG TAB PO SCH (21:24)
[2018-04-21 22:00] VITALS: BP 140/62
[2018-04-22 02:00] VITALS: BP 132/60
[2018-04-22] MEDS: HEPARIN SOD (PORCINE) 5000 UNITS/ML VIAL SC SCH ×3 (05:43→21:51)
[2018-04-22 06:00] VITALS: BP 125/62
[2018-04-22 06:04] LABS: C REACTIVE PROTEIN QUANTITATIV 4.29 MG/DL (0.00-0.30)
[2018-04-22 06:22] LABS: ERYTHROCYTE SEDIMENTATION RATE 86 mm/hr (0-20)
[2018-04-22 07:53] LABS: HEMATOCRIT 30.7 % (42.0-52.0); HEMOGLOBIN 9.9 g/dl (13.5-17.5); MEAN CORPUSCULAR HEMOGLOBIN 28.5 pg (27.0-33.0); MEAN CORPUSCULAR HGB CONC 32.2 g/dl (32.0-36.5); MEAN CORPUSCULAR VOLUME 88.5 fl (80.0-96.0); PLATELET COUNT, AUTOMATED 196 10^3/uL (150-450); RED BLOOD COUNT 3.47 10^6/uL (4.30-6.10); WHITE BLOOD COUNT 5.4 10^3/uL (4.0-10.0)
[2018-04-22] MEDS: NEPHRO-VIT TAB (NEPHROCAPS) PO SCH (07:59)
[2018-04-22] MEDS: FERROUS SULFATE 325MG TAB PO SCH (07:59)
[2018-04-22] MEDS: guaiFENesin ER 600 MG TAB PO SCH ×2 (07:59→21:50)
[2018-04-22] MEDS ORDERED: DARBEPOETIN 100 MCG/0.5 ML *DIALYSIS* SYRINGE (J0882) IV SCH (08:00)
[2018-04-22] MEDS: CLOPIDOGREL 75 MG TAB PO SCH (08:00)
[2018-04-22] MEDS: ASPIRIN 81 MG ENTERIC TAB PO SCH (08:00)
[2018-04-22] MEDS: METOPROLOL SUCC (TopROL XL) 50MG **XL** TAB PO SCH (08:00)
[2018-04-22] MEDS: FAMOTIDINE 20 MG TAB PO SCH (08:00)
[2018-04-22 08:16] LABS: ALBUMIN 2.1 GM/DL (3.2-5.2); CALCIUM LEVEL 8.1 MG/DL (8.8-10.2); CREATININE FOR GFR 5.34 MG/DL (0.70-1.30); GLOMERULAR FILTRATION RATE 11.7 (>49); PHOSPHORUS LEVEL 5.4 MG/DL (2.5-4.9); POTASSIUM SERUM 4.5 MEQ/L (3.5-5.1)
[2018-04-22 10:00] VITALS: BP 138/65
[2018-04-22] MEDS ORDERED: HEPARIN 1,000 UNITS/ML 10ML VIAL (FOR RADIOLOGY& DIALYSIS ONLY) XX ONE (11:30)
--- NOTE | 2018-04-22 14:20 | IPN ---
DATE: 04/21/2018 SUBJECTIVE: Patient was seen and examined at the bedside today morning. He is afebrile, hemodynamically stable. He denies any active complaints. He was dialyzed yesterday. He tolerated the hemodialysis procedure well. OBJECTIVE: Vital signs: Temperature is 97.5 degrees Fahrenheit, blood pressure 122/67, pulse is 61, respiratory rate of 18, saturating 92% on nasal cannula at 0.5 liters. Intake and output: Urine output is not recorded. Ultrafiltration with hemodialysis was 2 liters. Weight in the bed scale is 52.6 kg. PHYSICAL EXAMINATION: GENERAL: Patient is awake, alert, oriented times two, lying in bed. No apparent distress. HEAD AND NECK: Extraocular muscles intact. Pupils equally round and reactive to light. Mucous membranes are moist. Neck is supple. He has a right internal jugular tunneled dialysis catheter. CARDIOVASCULAR: S1, S2, regular rate. No edema of the bilateral lower extremities. RESPIRATORY: Chest is clear to auscultation bilaterally. Bilateral equal air entry. No rales or rhonchi. ABDOMEN: Soft. Positive bowel sounds. Nontender. No organomegaly. MUSCULOSKELETAL: He has a dressing on bilateral transmetatarsal amputation sites. CENTRAL NERVOUS SYSTEM: He is oriented times two. Follows commands. Moves upper extremities. LABORATORY REVIEW: CBC showed a WBC 4.6, hemoglobin 9.9, platelets are 159. BMP showed sodium 138, potassium 3.7, chloride 102, bicarbonate 29, BUN 21, creatinine is 4.1, calcium 7.7, magnesium is 2.3. CURRENT INPATIENT MEDICATIONS: Patient's medications were all reviewed by me. He has been started on Aranesp 100 mcg with hemodialysis. No other change in the medications today. ASSESSMENT AND PLAN: 1. End-stage renal disease, on hemodialysis. Patient's regular dialysis days are Sunday, , Sunday. He was dialyzed yesterday according to his schedule. 2. Chronic systolic congestive heart failure. Volume status is optimized. There was 2 liters of fluid removed yesterday. 3. Anemia secondary to end-stage renal disease. Hemoglobin is slightly worse. He is going to start Aranesp with hemodialysis with tomorrow's dialysis. 4. Hypertension with end-stage renal disease. Continue current dose of metoprolol.
--- NOTE | 2018-04-22 15:05 | IPNPDOC ---
Date Seen The patient was seen on 04/22/18. Progress Note SUBJECTIVE: Patient tells me that he wants to go home and is willing to do whatever it takes to get their OBJECTIVE: Vital signs: Listed below. GENERAL: No sign of acute distress. Sitting up in bed comfortably he is accompanied by his acute distress HEENT: Normocephalic, atraumatic, extraocular motor grossly intact. CARDIOVASCULAR: S1, S2, regular rate. LUNGS: Clear bilaterally EXTREMITIES: Bilateral lower extremity partial amputation wrapped with dressing. No lower extremity swelling. LABORATORY DATA: Listed below. ASSESSMENT AND PLAN: 1. Chronic osteomyelitis: Patient has completed a total of 6 weeks of antibiotics since his last infectious disease appointment I have already dis continued all antibiotics we are monitoring him closely, his ESR is elevated yesterday I will continue to trend is not any fevers no concerning leukocytosis should he develop consider checking MRIs of the lower extremities versus inpatient infectious disease consultation for chronic suppressive therapy versus the need for further amputation. he will require outpatient follow-up with vascular surgery for possible revascularization of the left lower extremity and wound care. Dr. Downey confirmed that he should be nonweightbearing on both of his lower extremities for the time being, he will be wheelchair bound thus far he has not performed well with physical therapy in terms of transfers or well with compliance. Today I met with the patient and his after having spoken with the bolus over the weekend extensively made aware that he is currently not safe he will need demonstrate improved mobility with physical therapy and they're ready to participate in make every effort to get him home. They declined offers for rehabilitation given a back spasms they had in the past at a rehabilitation location in the [place] 2. Peripheral vascular disease. As outlined above 3. Delirium: I suspect the patient is at his baseline and was likely secondary to noncompliance related to the antimicrobials for his osteomyelitis 4. Decompensated systolic congestive heart failure with EF of 30%.Fluid management through hemodialysis. He appears much better compensated at this time. He is somewhat hypoxic and we are unable to wean him from his 0.5 L of oxygen nephrology help was continued throughout optimization is greatly appreciated he is close to being back to his baseline 5. End stage renal disease. Dialysis day Sunday, and Sunday. Nephrology help is greatly appreciated 6. History of coronary artery disease, on aspirin, Plavix, and beta blockers and statin. 7. Deep vein thrombosis prophylaxis on Heparin. Disposition: Possibly snf versus home depending on his ability to clear physical therapy and be safe VS, I&O, 24H, Fishbone Vital Signs/I&O Vital Signs Date Time Temp Pulse Resp B/P (MAP) Pulse Ox O2 Delivery O2 Flow Rate FiO2 04/22/18 10:00 97.4 60 22 138/65 (89) 98 Nasal Cannula 0.5 I&O- Last 24 Hours up to 6 AM 04/22/18 06:00 Intake Total 390 ml Output Total 0 ml Balance 390 ml Laboratory Data 24H LABS Laboratory Tests 2 04/21/18 18:14: Bedside Glucose (Misc Panel) 139H 04/22/18 00:17: Bedside Glucose (Misc Panel) 74L 04/22/18 05:09: Nucleated Red Blood Cells % (auto) 0.0, Erythrocyte Sedimentation Rate 86H, Blood Urea Nitrogen 31H, Creatinine 5.34H, Sodium Level 138, Potassium Level 4.5#, Chloride Level 105, Carbon Dioxide Level 23, Anion Gap 10, Glomerular Filtration Rate 11.7L, Calcium Level 8.1L, Phosphorus Level 5.4H, C-Reactive Protein, Quantitative 4.29H, Albumin 2.1L 04/22/18 06:20: Bedside Glucose (Misc Panel) 75L 04/22/18 11:45: Bedside Glucose (Misc Panel) 76L CBC/BMP Laboratory Tests 04/22/18 05:09 Red Blood Count 3.47 L, Mean Corpuscular Volume 88.5, Mean Corpuscular Hemoglobin 28.5, Mean Corpuscular Hemoglobin Concent 32.2, Red Cell Distribution Width 19.0 H, Anion Gap 10 АННА FELIZ MD Apr 22, 2018 15:05
[2018-04-22] MEDS: ATORVASTATIN 20 MG TAB PO SCH (21:50)
[2018-04-22 22:00] VITALS: BP 137/75
[2018-04-23 02:00] VITALS: BP 138/67
[2018-04-23] MEDS: HEPARIN SOD (PORCINE) 5000 UNITS/ML VIAL SC SCH ×3 (05:45→21:12)
[2018-04-23 06:00] VITALS: BP 138/64
[2018-04-23 06:03] LABS: HEMOGLOBIN 10.3 g/dl (13.5-17.5); MEAN CORPUSCULAR HEMOGLOBIN 28.3 pg (27.0-33.0); MEAN CORPUSCULAR HGB CONC 31.2 g/dl (32.0-36.5); MEAN CORPUSCULAR VOLUME 90.7 fl (80.0-96.0); PLATELET COUNT, AUTOMATED 166 10^3/uL (150-450); RED BLOOD COUNT 3.64 10^6/uL (4.30-6.10); WHITE BLOOD COUNT 4.9 10^3/uL (4.0-10.0)
[2018-04-23 06:29] LABS: CALCIUM LEVEL 8.6 MG/DL (8.8-10.2); CREATININE FOR GFR 4.19 MG/DL (0.70-1.30); GLOMERULAR FILTRATION RATE 15.5 (>49); POTASSIUM SERUM 4.4 MEQ/L (3.5-5.1)
[2018-04-23 06:33] LABS: ERYTHROCYTE SEDIMENTATION RATE 77 mm/hr (0-20)
[2018-04-23] MEDS: ASPIRIN 81 MG ENTERIC TAB PO SCH (09:01)
[2018-04-23] MEDS: METOPROLOL SUCC (TopROL XL) 50MG **XL** TAB PO SCH (09:01)
[2018-04-23] MEDS: guaiFENesin ER 600 MG TAB PO SCH ×2 (09:01→21:12)
[2018-04-23] MEDS: FERROUS SULFATE 325MG TAB PO SCH (09:01)
[2018-04-23] MEDS: CLOPIDOGREL 75 MG TAB PO SCH (09:01)
[2018-04-23] MEDS: FAMOTIDINE 20 MG TAB PO SCH (09:01)
[2018-04-23] MEDS: NEPHRO-VIT TAB (NEPHROCAPS) PO SCH (09:01)
--- NOTE | 2018-04-23 09:37 | IPN ---
DATE: 04/22/2018 Mr. Gonzalez is seen this morning on his bedside. He reports feeling tired and did not sleep well last night. His is present on the bedside. She reports that he ate breakfast and wants to rest. He denies any dyspnea, chest pain, nausea, vomiting, fever or chills. On physical examination, temperature 97.2 degrees Fahrenheit, heart rate 60 per minute and respiratory rate 20 per minute. Blood pressure 125/62 mmHg and oxygen saturation 98% on 1/2 liter of oxygen. Head is atraumatic. Neck is supple and without jugular venous distention (JVD) or thyroid enlargement. Heart sounds are regular and lungs clear to auscultation. Abdomen: Soft and nontender and bowel sounds are normal. Extremities have no cyanosis or clubbing. He has partial amputation of both feet and stumps are both wrapped in dressings. The patient's reports that the right foot wound is doing much better and the left foot is still quite infected. Neurologically, he is at his baseline mentation without a focal deficit. Today's labs show WBC count 5.4, hemoglobin 9.9 and hematocrit 30.7. Sodium 138, potassium 4.5, CO2 23, BUN 31 and creatinine 5.34. His C-reactive protein is 4.29 and albumin 2.1. PROBLEMS: 1. End-stage renal disease. The patient is due for dialysis today and he will be dialyzed this afternoon. He is very well dialyzed at present, however, he has history of noncompliance for dialysis as an outpatient. His electrolytes are stable and volume status is well-compensated. 2. Anemia. Anemia of chronic kidney disease and ongoing infections. At present, it is stable and we will continue to manage with Aranesp 100 mcg once a week during dialysis. He is also taking oral iron supplement which will be continued. 3. Hypertension. Blood pressure seems very well controlled on current medications. No changes are being made today. 4. Infected wounds of bilateral foot stumps. The patient has been treated with antibiotics in the past. Currently he is receiving wound care with dressings.
[2018-04-23 10:00] VITALS: BP 136/63
--- NOTE | 2018-04-23 12:24 | IPNPDOC ---
Text Note Date of Service The patient was seen on 04/23/18. NOTE Subjective: Patient was seen and examined at the bedside. Patient reports that he's feeling fine. Denies any chest pain, shortness of breath or palpitations. Denies nausea, vomiting, abdominal pain, constipation or diarrhea. Notes that he will be working with physical therapy. Objective: Vitals (See below) General: Lying in bed, no acute distress, comfortable, AAOx3 HEENT: NC, AT CVS: RRR, +S1S2 Lungs: Fair air entry b/l, -w/r/r Abdomen: Soft, ND, NT, Extremities: - Edema, - Calf tenderness, Feet in dressing b/l (partial amputation) Assessment and plan: Chronic osteomyelitis - Clinically has no new complaints - Remains afebrile - ESR / CRP appear to be trending down - Completed 6 week course of Antibiotics; s/p Vancomycin and Zosyn - Will have outpatient f/u with Vascular surgery (Dr. Kaur) and Wound care (Dr. Downey) - Will c/w non-weight bearing status on both feet; will need family to d emonstrate ability to use [employer] lift - Currently [facility] - See above s/p Delirium - possibly 2/2 non-compliance to antibiotics - Mentation has improved; now at baseline - MRI Brain 04/12: Small vessel ischemic disease. Mild volume loss. Decompensated systolic CHF - EF 30% - Still requiring supplemental oxygen - CXR 04/19: Pulmonary edema pattern with moderate pleural effusions and bibasilar atelectasis. - c/w HD - Nephrology on consultation; appreciate their input ESRD on HD (TTS) - c/w HD - Nephrology on consultation; appreciate their input CAD - c/w ASA, Plavix, Metoprolol, Atorvastatin Normocytic anemia - c/w Ferrous sulfate GERD - c/w Famotidine DVT prophylaxis - c/w Heparin Disposition: - c/w PT / OT; possibly needs sub-acute rehabilitation VS,Fishbone, I+O VS, Fishbone, I+O Laboratory Tests 04/23/18 05:44 Red Blood Count 3.64 L, Mean Corpuscular Volume 90.7, Mean Corpuscular Hemoglobin 28.3, Mean Corpuscular Hemoglobin Concent 31.2 L, Red Cell Distribution Width 18.8 H, Calcium Level 8.6 L Vital Signs Date Time Temp Pulse Resp B/P (MAP) Pulse Ox O2 Delivery O2 Flow Rate FiO2 04/23/18 10:00 96.9 64 19 136/63 (87) 91 Nasal Cannula 0.5 I&O- Last 24 Hours up to 6 AM 04/23/18 06:00 Intake Total 570 ml Output Total 0 ml Balance 570 ml MELIDA JOHNSON MD Apr 23, 2018 12:23
--- NOTE | 2018-04-23 13:53 | IPN ---
DATE: 04/23/2018 Mr. Gonzalez is seen this morning on his bedside. He is feeling well today and denies any particular complaints. Yesterday, he initially refused to go for dialysis, however, after talking to him he later agreed and did go and have his dialysis. He denies any dyspnea, chest pain, nausea or vomiting. On physical examination, temperature 96.9 degrees Fahrenheit, heart rate 64 per minute and respiratory rate 18 per minute. Blood pressure 136/63 mmHg and oxygen saturation 91% on 1/2 liter of oxygen. Head is atraumatic. Neck is supple and jugular venous distention (JVD) is not abnormally elevated. His heart sounds are regular and lungs clear to auscultation. Abdomen: Soft and nontender. Bowel sounds are normal. Extremities: Without cyanosis or clubbing. He has a Perma-Cath on his right upper chest which is without any signs of infection. Bilateral lower extremities have dressings on his feet stumps. He has bilateral partial foot amputations. Today's labs show WBC count 4.9, hemoglobin 10.3 and hematocrit 33.0. Sodium 136, potassium 4.4, CO2 28, BUN 20 and creatinine 4.19. CPK is 38 and calcium 8.6. PROBLEMS: 1. End-stage renal disease. The patient was dialyzed yesterday and next dialysis will be scheduled either tomorrow or depending upon his regular schedule. His volume status is well-compensated and electrolytes are within normal range. 2. Anemia. His anemia is stable at present and we will continue to manage with weekly dose of Aranesp during dialysis. 3. Bilateral foot infections and sepsis. The patient continues with wound care and dressing changes. He is not on systemic antibiotic at present. 4. Generalized weakness and deconditioning. This a chronic issue and the patient does not make much effort to improve his strength. I will defer to the hospitalist service to discuss about possibility of halfway placement.
[2018-04-23 14:00] VITALS: BP 127/60
[2018-04-23] MEDS: ATORVASTATIN 20 MG TAB PO SCH (21:11)
[2018-04-23 22:00] VITALS: BP 141/66
[2018-04-24 02:00] VITALS: BP 121/58
[2018-04-24 05:52] LABS: HEMATOCRIT 32.1 % (42.0-52.0); HEMOGLOBIN 10.1 g/dl (13.5-17.5); MEAN CORPUSCULAR HEMOGLOBIN 28.1 pg (27.0-33.0); MEAN CORPUSCULAR HGB CONC 31.5 g/dl (32.0-36.5); MEAN CORPUSCULAR VOLUME 89.4 fl (80.0-96.0); PLATELET COUNT, AUTOMATED 180 10^3/uL (150-450); RED BLOOD COUNT 3.59 10^6/uL (4.30-6.10); WHITE BLOOD COUNT 5.4 10^3/uL (4.0-10.0)
[2018-04-24] MEDS: HEPARIN SOD (PORCINE) 5000 UNITS/ML VIAL SC SCH ×3 (05:58→21:14)
[2018-04-24 06:00] VITALS: BP 147/63
[2018-04-24 06:34] LABS: CALCIUM LEVEL 8.4 MG/DL (8.8-10.2); CREATININE FOR GFR 5.69 MG/DL (0.70-1.30); GLOMERULAR FILTRATION RATE 10.9 (>49); POTASSIUM SERUM 4.5 MEQ/L (3.5-5.1)
[2018-04-24 07:19] LABS: ERYTHROCYTE SEDIMENTATION RATE 75 mm/hr (0-20)
[2018-04-24] MEDS: FAMOTIDINE 20 MG TAB PO SCH (09:32)
[2018-04-24] MEDS: METOPROLOL SUCC (TopROL XL) 50MG **XL** TAB PO SCH (09:32)
[2018-04-24] MEDS: CLOPIDOGREL 75 MG TAB PO SCH (09:32)
[2018-04-24] MEDS: guaiFENesin ER 600 MG TAB PO SCH ×2 (09:32→20:48)
[2018-04-24] MEDS: NEPHRO-VIT TAB (NEPHROCAPS) PO SCH (09:33)
[2018-04-24] MEDS: ASPIRIN 81 MG ENTERIC TAB PO SCH (09:33)
[2018-04-24] MEDS: FERROUS SULFATE 325MG TAB PO SCH (09:33)
[2018-04-24 10:00] VITALS: BP 140/65
--- NOTE | 2018-04-24 13:18 | IPNPDOC ---
Text Note Date of Service The patient was seen on 04/24/18. NOTE Subjective: Patient was seen and examined at the bedside. Patient has no new complaints this morning reported that he will continue to work with physical therapy to demonstrate his ability to get home. Denies chest pain, shortness of breath or palpitations. Denies nausea, vomiting, abdominal pain, constipation or diarrhea. Objective: Vitals (See below) General: Lying in bed, no acute distress, comfortable, AAOx3 HEENT: NC, AT CVS: RRR, +S1S2 Lungs: Fair air entry b/l, auscultation is without any wheezing, rhonchi, rales Abdomen: Soft, abdomen is nondistended, without any evidence of tenderness Extremities: - Edema, - Calf tenderness, Feet in dressing b/l (partial amputation) Assessment and plan: Chronic osteomyelitis - Clinically has no new complaints - Remains afebrile - ESR / CRP appear to be trending down - Completed 6 week course of Antibiotics; s/p Vancomycin and Zosyn - Outpatient f/u with Vascular surgery (Dr. Kaur) and Wound care (Dr. Downey) - c/w non-weight bearing status on both feet; family to demonstrate ability to use [employer] lift - Currently family does not want to pursue rehabilitation because of bad experienced in [place] - c/w OT / PT - until cleared for DC PVD - See above s/p Delirium - possibly 2/2 non-compliance to antibiotics - Mentation has improved; now at baseline - MRI Brain 04/12: Small vessel ischemic disease. Mild volume loss. Decompensated systolic CHF - EF 30% - Still requiring supplemental oxygen - CXR 04/19: Pulmonary edema pattern with moderate pleural effusions and bibasilar atelectasis. - c/w HD - Nephrology on consultation; appreciate their input ESRD on HD (TTS) - c/w HD - Nephrology on consultation; appreciate their input CAD - c/w ASA, Plavix, Metoprolol, Atorvastatin Normocytic anemia - c/w Ferrous sulfate GERD - c/w Famotidine DVT prophylaxis - c/w Heparin Disposition: - c/w PT / OT; possibly needs sub-acute rehabilitation VS,Fishbone, I+O VS, Fishbone, I+O Laboratory Tests 04/24/18 05:12 Red Blood Count 3.59 L, Mean Corpuscular Volume 89.4, Mean Corpuscular Hemoglobin 28.1, Mean Corpuscular Hemoglobin Concent 31.5 L, Red Cell Distribut ion Width 18.6 H, Calcium Level 8.4 L Vital Signs Date Time Temp Pulse Resp B/P (MAP) Pulse Ox O2 Delivery O2 Flow Rate FiO2 04/24/18 10:00 97.4 60 18 140/65 (90) 95 Nasal Cannula 0.5 I&O- Last 24 Hours up to 6 AM 04/24/18 06:00 Intake Total 210 ml Output Total 0 ml Balance 210 ml MELIDA JOHNSON MD Apr 24, 2018 13:18
[2018-04-24 14:00] VITALS: BP 117/56
--- NOTE | 2018-04-24 16:48 | IPN ---
DATE: 04/24/2018 Mr. Gonzalez was seen and examined this morning at bedside with his . He states to be doing really well and denies having any particular complaints. He has eaten all his meals with no problems. He denies any dyspnea, chest pain, nausea, vomiting. He states that lower extremity dressing were changed yesterday at 5 p.m., and they get changed every other day. PHYSICAL EXAMINATION: VITAL SIGNS: Temperature 97.4, pulse 60, respirations 18, blood pressure 140/65 (90), pulse oximetry of 95% on nasal cannula 0.5 liter. HEENT: Atraumatic, normocephalic. NECK: Supple with no jugular venous distention (JVD) or elevation noted. CARDIOVASCULAR: Regular rate and rhythm with normal S1, S2 sounds. No audible murmurs, rubs, or gallops. LUNGS: Clear to auscultation bilaterally with no audible wheezing, rhonchi, or rales. ABDOMEN: Soft, nontender, nondistended. LOWER EXTREMITIES: No cyanosis or clubbing. He has bilateral lower extremity dressings on the feet stumps, and he has bilateral partial feet amputation. Wound was examined. Right lower extremity on the posterior calf: Slightly macerated superficial wound, measuring about 4 cm x 2 cm. No pustulant drainage noted, just serosanguineous. Left lower extremity at the stump: Minimal irritation. Healing appropriately. LABORATORY DATA: Hematology: WBC 5.4, hemoglobin 10.1, hematocrit 32.1, platelets 180. Chemistry: Sodium 139, potassium 4.5, chloride 105, carbon dioxide 27, BUN 32, creatinine 5.69, total creatine kinase 40, calcium 8.4. PROBLEMS: 1. End-stage renal disease. Patient was dialyzed on April 22 due to the weekend. He will return to his normally scheduled dialysis, which is Sunday, , Sunday. Next dialysis session will be tomorrow, 04/25/2018. Currently his volume is well compensated, and electrolytes are within normal limits. 2. Bilateral foot infection and sepsis. He continues with wound care and dressing changes. He is currently not on any systemic antibiotics. Do advise for daily wound changes of the bilateral lower extremities instead of every other day. I believe the plan is to followup with Dr. Downey outpatient. 3. Anemia. His anemia is currently stable. Will continue to manage with weekly doses of Aranesp during dialysis. 4. Generalized weakness and deconditioning. This is a chronic issue. He does not make much effort to improve with his strength. He possibly will need nursing placement. Will refer to hospitalist service for further recommendation. My faculty preceptor for this patient encounter was physically present during the encounter and was fully available. All aspects of the patient interview, examination, medical decision making process, and medical care plan development were reviewed and approved by the faculty preceptor. The faculty preceptor is aware and concurs with the plan as stated in the body of this note and will attest to such by his/her co-signature.
[2018-04-24] MEDS: ATORVASTATIN 20 MG TAB PO SCH (20:48)
[2018-04-24 22:00] VITALS: BP 138/65
[2018-04-25 02:00] VITALS: BP 136/63
[2018-04-25 05:05] LABS: HEMATOCRIT 33.4 % (42.0-52.0); HEMOGLOBIN 10.6 g/dl (13.5-17.5); MEAN CORPUSCULAR HEMOGLOBIN 28.5 pg (27.0-33.0); MEAN CORPUSCULAR HGB CONC 31.7 g/dl (32.0-36.5); MEAN CORPUSCULAR VOLUME 89.8 fl (80.0-96.0); PLATELET COUNT, AUTOMATED 174 10^3/uL (150-450); RED BLOOD COUNT 3.72 10^6/uL (4.30-6.10); WHITE BLOOD COUNT 5.4 10^3/uL (4.0-10.0)
[2018-04-25 05:36] LABS: CALCIUM LEVEL 8.3 MG/DL (8.8-10.2); CREATININE FOR GFR 6.93 MG/DL (0.70-1.30); GLOMERULAR FILTRATION RATE 8.7 (>49); POTASSIUM SERUM 5.2 MEQ/L (3.5-5.1)
[2018-04-25 06:00] VITALS: BP 131/62
[2018-04-25] MEDS: NEPHRO-VIT TAB (NEPHROCAPS) PO SCH (06:17)
[2018-04-25] MEDS: HEPARIN SOD (PORCINE) 5000 UNITS/ML VIAL SC SCH ×3 (06:17→21:15)
[2018-04-25] MEDS: FAMOTIDINE 20 MG TAB PO SCH (06:19)
[2018-04-25] MEDS: guaiFENesin ER 600 MG TAB PO SCH ×2 (06:19→21:15)
[2018-04-25] MEDS: METOPROLOL SUCC (TopROL XL) 50MG **XL** TAB PO SCH (06:19)
[2018-04-25] MEDS: FERROUS SULFATE 325MG TAB PO SCH (06:19)
[2018-04-25] MEDS: ASPIRIN 81 MG ENTERIC TAB PO SCH (06:19)
[2018-04-25] MEDS: CLOPIDOGREL 75 MG TAB PO SCH (06:19)
[2018-04-25 07:45] LABS: ERYTHROCYTE SEDIMENTATION RATE 10 mm/hr (0-20)
[2018-04-25] MEDS ORDERED: HEPARIN 1,000 UNITS/ML 10ML VIAL (FOR RADIOLOGY& DIALYSIS ONLY) XX ONE (11:00)
[2018-04-25 12:25] VITALS: BP 127/61
[2018-04-25 14:00] VITALS: BP 127/58
--- NOTE | 2018-04-25 16:05 | IPNPDOC ---
Text Note Date of Service The patient was seen on 04/25/18. NOTE Subjective: Patient was seen and examined at the bedside. Recent no new complaints this afternoon. Was seen postdialysis. Will continue to work with physical therapy until he is deemed to be cleared. Denies chest pain, shortness of breath or palpitations Objective: Vitals (See below) General: Lying in bed, no acute distress, comfortable, AAOx3 HEENT: NC, AT CVS: RRR, +S1S2 Lungs: Fair air entry b/l, no evidence of rales, rhonchi or wheezing Abdomen: abdomen is soft without distention or tenderness Extremities: No LE edema, - Calf tenderness, Feet in dressing b/l (partial amputation) Assessment and plan: Chronic osteomyelitis - Clinically has no new complaints - Remains afebrile - ESR improving / CRP has trended down - Completed 6 week course of Antibiotics; s/p Vancomycin and Zosyn - Outpatient f/u with Vascular surgery (Dr. Kaur) and Wound care (Dr. Downey) - c/w non-weight bearing status on both feet; family to demonstrate ability to use [employer] lift - Currently family does not want to pursue rehabilitation because of bad experienced in [place] - c/w OT / PT; awaiting clearance PVD - See above s/p Delirium - possibly 2/2 non-compliance to antibiotics - Mentation has improved; now at baseline - MRI Brain 04/12: Small vessel ischemic disease. Mild volume loss. Decompensated systolic CHF - EF 30% - Still requiring supplemental oxygen - CXR 04/19: Pulmonary edema pattern with moderate pleural effusions and bibasilar atelectasis. - c/w HD - Nephrology on consultation; appreciate their input ESRD on HD (TTS) - c/w HD - Nephrology on consultation; appreciate their input CAD - c/w ASA, Plavix, Metoprolol, Atorvastatin Normocytic anemia - c/w Ferrous sulfate GERD - c/w Famotidine DVT prophylaxis - c/w Heparin Disposition: - c/w PT / OT; possibly needs sub-acute rehabilitation Medical Equipment: - Beneficiary has medical condition which requires positioning of the body in ways not feasible with an ordinary bed in order to alleviate pain, - The beneficiary requires frequent changes in body position and/or has any immediate need for change in body position VS,Fishbone, I+O VS, Fishbone, I+O Laboratory Tests 04/25/18 04:54 Red Blood Count 3.72 L, Mean Corpuscular Volume 89.8, Mean Corpuscular Hemoglobin 28.5, Mean Corpuscular Hemoglobin Concent 31.7 L, Red Cell Distribution Width 18.9 H, Calcium Level 8.3 L Vital Signs Date Time Temp Pulse Resp B/P (MAP) Pulse Ox O2 Delivery O2 Flow Rate FiO2 04/25/18 14:00 97.2 60 18 127/58 (81) 99 Nasal Cannula 0.5 I&O- Last 24 Hours up to 6 AM 04/25/18 06:00 Intake Total 942 ml Output Total 0 ml Balance 942 ml MELIDA JOHNSON MD Apr 25, 2018 16:05
[2018-04-25 18:00] VITALS: BP 125/73
[2018-04-25] MEDS: ATORVASTATIN 20 MG TAB PO SCH (21:15)
[2018-04-25 22:00] VITALS: BP 108/54
[2018-04-26 02:00] VITALS: BP 107/52
[2018-04-26] MEDS: HEPARIN SOD (PORCINE) 5000 UNITS/ML VIAL SC SCH ×3 (05:12→22:00)
[2018-04-26 05:59] LABS: HEMATOCRIT 33.5 % (42.0-52.0); HEMOGLOBIN 10.2 g/dl (13.5-17.5); MEAN CORPUSCULAR HEMOGLOBIN 28.3 pg (27.0-33.0); MEAN CORPUSCULAR HGB CONC 30.4 g/dl (32.0-36.5); MEAN CORPUSCULAR VOLUME 93.1 fl (80.0-96.0); PLATELET COUNT, AUTOMATED 149 10^3/uL (150-450); WHITE BLOOD COUNT 5.5 10^3/uL (4.0-10.0)
[2018-04-26 06:24] LABS: ERYTHROCYTE SEDIMENTATION RATE 87 mm/hr (0-20)
[2018-04-26 06:33] LABS: CALCIUM LEVEL 8.1 MG/DL (8.8-10.2); CREATININE FOR GFR 4.78 MG/DL (0.70-1.30); GLOMERULAR FILTRATION RATE 13.3 (>49); POTASSIUM SERUM 4.4 MEQ/L (3.5-5.1)
[2018-04-26 07:00] VITALS: BP 112/74
[2018-04-26] MEDS: FERROUS SULFATE 325MG TAB PO SCH (08:58)
[2018-04-26] MEDS: FAMOTIDINE 20 MG TAB PO SCH (08:58)
[2018-04-26] MEDS: guaiFENesin ER 600 MG TAB PO SCH ×2 (08:58→21:00)
[2018-04-26] MEDS: ASPIRIN 81 MG ENTERIC TAB PO SCH (08:58)
[2018-04-26] MEDS: METOPROLOL SUCC (TopROL XL) 50MG **XL** TAB PO SCH (08:58)
[2018-04-26] MEDS: CLOPIDOGREL 75 MG TAB PO SCH (08:58)
[2018-04-26] MEDS: NEPHRO-VIT TAB (NEPHROCAPS) PO SCH (08:58)
[2018-04-26 10:00] VITALS: BP 129/58
--- NOTE | 2018-04-26 12:24 | IPN ---
DATE: 04/26/2018 Mr. Gonzalez was seen and examined this morning at bedside. He states to be doing well. He does not have any particular complaints. He states that he is not hungry this morning and he has not eaten, but will eat later on today. He is having daily lower extremity dressing. He denies any shortness of breath, trouble breathing, nausea or vomiting. He is able to articulate that he was at [facility] and he understands we are his kidney doctors who are taking care of his dialysis. The patient had his dialysis yesterday where he had 2 liters removed. On physical examination, temperature 97.4, pulse 62, respiratory rate 20, blood pressure 112/74 (87), pulse oximetry 95% on nasal cannula of 0.5 liters. Ins and Outs: Intake total in the last 24 hours is 610 mL. Output total of 200 mL with a balance of -1390 mL. Hemodialysis removal 2000 mL. HEENT: Atraumatic, normocephalic. Neck: Supple. No jugular venous distention (JVD) noted. Cardiovascular: Regular rate and rhythm with S1 and S2 sounds. No audible murmurs, rubs or gallops. Lungs: Clear to auscultation bilaterally. No audible wheezing, rhonchi or rales. Abdomen: Soft. Nontender. Nondistended. Lower Extremities: No cyanosis. No clubbing. Bilateral lower extremity amputation dressings are appreciated around the stumps. No erythema or tenderness noted. LABORATORY DATA: Hematology: WBC 5.5, hemoglobin 10.2, hematocrit 33.5, platelets 149. Chemistries: Sodium 138, potassium 4.1, chloride 102, carbon dioxide 29, BUN 26, creatinine 4.78, calcium 8.1, total creatinine kinase 34. PROBLEMS: 1. End stage renal disease. He will continue with his normally scheduled dialysis which is Sunday, and Sunday. He tolerated his dialysis session yesterday where he got 2 liters removed. His volume status is currently well compensated and electrolytes are within normal limits. Will continue as scheduled. 2. Bilateral foot infection and sepsis. He will continue with his wound care and dressing changes daily. He is currently not on any systemic antibiotics. I do believe the plan is to followup with Dr. Downey outpatient. Will continue with current plan. 3. Anemia. Currently stable. Will continue to manage with weekly doses of Aranesp during dialysis. 4. Generalized weakness and deconditioning. This is a chronic issue. He does not make any effort to improve with his strength. Will possibly need halfway placement for subacute rehabilitation for short term or terminal block assembler care. Will refer to hospitalist service for further recommendation. My faculty preceptor for this patient encounter was physically present during the encounter and was fully available. All aspects of the patient interview, examination, medical decision making process, and medical care plan development were reviewed and approved by the faculty preceptor. The faculty preceptor is aware and concurs with the plan as stated in the body of this note and will attest to such by his/her co-signature.
[2018-04-26 14:00] VITALS: BP 102/51
--- NOTE | 2018-04-26 14:47 | IPNPDOC ---
Text Note Date of Service The patient was seen on 04/26/18. NOTE Subjective: Patient was seen and examined at the bedside. Patient has no new complaints this morning. His are present at the bedside. I have addressed all her questions and concerns. Denies chest pain, shortness breath or palpitations. Objective: Vitals (See below) General: Lying in bed, no acute distress, comfortable, AAOx3 HEENT: NC, AT CVS: RRR, +S1S2 Lungs: Fair air entry b/l, auscultation does not reveal any rhonchi, wheezing, rales Abdomen: Soft, nondistended, without tenderness Extremities: Extremities are without any edema, - Calf tenderness, Feet in dressing b/l (partial amputation) Assessment and plan: Chronic osteomyelitis - Clinically has no new complaints - Remains hemodynamically stable / afebrile - ESR improving / CRP has trended down - Completed 6 week course of Antibiotics; s/p Vancomycin and Zosyn - Outpatient f/u with Vascular surgery (Dr. Kaur) and Wound care (Dr. Faustino prado) - c/w non-weight bearing status on both feet; family to demonstrate ability to use [employer] lift - Currently family does not want to pursue rehabilitation because of bad experienced in [place] - c/w OT / PT / PFS looking into transition the patient home - We'll get necessary equipment into the home setting prior to transition PVD - See above s/p Delirium - possibly 2/2 non-compliance to antibiotics - Mentation has improved; now at baseline - MRI Brain 04/12: Small vessel ischemic disease. Mild volume loss. Decompensated systolic CHF - EF 30% - Still requiring supplemental oxygen; saturations have remained at 95% on 0.5 L nasal cannula; will transition to room air - CXR 04/19: Pulmonary edema pattern with moderate pleural effusions and bibasilar atelectasis. - c/w HD - Nephrology on consultation; appreciate their input ESRD on HD (TTS) - c/w HD - Nephrology on consultation; appreciate their input CAD - c/w ASA, Plavix, Metoprolol, Atorvastatin Normocytic anemia - c/w Ferrous sulfate GERD - c/w Famotidine DVT prophylaxis - c/w Heparin Disposition: - Trying to transition back to home setting after necessary equipment and physical therapy has been cleared Medical Equipment: - Beneficiary has medical condition which requires positioning of the body in ways not feasible with an ordinary bed in order to alleviate pain, - The beneficiary requires frequent changes in body position and/or has any immediate need for change in body position VSCirilo, I+O VSCirilo, I+O Laboratory Tests 04/26/18 05:16 Red Blood Count 3.60 L, Mean Corpuscular Volume 93.1, Mean Corpuscular Hemoglobin 28.3, Mean Corpuscular Hemoglobin Concent 30.4 L, Red Cell Distribution Width 19.0 H, Calcium Level 8.1 L Vital Signs Date Time Temp Pulse Resp B/P (MAP) Pulse Ox O2 Delivery O2 Flow Rate FiO2 04/26/18 09:00 0.5 04/26/18 08:58 62 113/53 04/26/18 07:00 97.4 20 95 Nasal Cannula I&O- Last 24 Hours up to 6 AM 04/26/18 06:00 Intake Total 340 ml Output Total 2000 ml Balance -1660 ml MELIDA JOHNSON MD Apr 26, 2018 14:47
[2018-04-26 18:00] VITALS: BP 115/62
[2018-04-26] MEDS: ATORVASTATIN 20 MG TAB PO SCH (21:00)
[2018-04-26 22:00] VITALS: BP 111/72
[2018-04-27 02:00] VITALS: BP 134/73
[2018-04-27 06:00] VITALS: BP 106/46
[2018-04-27] MEDS: FERROUS SULFATE 325MG TAB PO SCH (06:31)
[2018-04-27] MEDS: FAMOTIDINE 20 MG TAB PO SCH (06:31)
[2018-04-27] MEDS: ASPIRIN 81 MG ENTERIC TAB PO SCH (06:32)
[2018-04-27] MEDS: CLOPIDOGREL 75 MG TAB PO SCH (06:32)
[2018-04-27] MEDS: HEPARIN SOD (PORCINE) 5000 UNITS/ML VIAL SC SCH ×3 (06:32→22:27)
[2018-04-27] MEDS: METOPROLOL SUCC (TopROL XL) 50MG **XL** TAB PO SCH (06:32)
[2018-04-27] MEDS: guaiFENesin ER 600 MG TAB PO SCH ×2 (06:32→22:27)
[2018-04-27] MEDS: NEPHRO-VIT TAB (NEPHROCAPS) PO SCH (06:34)
[2018-04-27 06:35] LABS: HEMATOCRIT 35.8 % (42.0-52.0); HEMOGLOBIN 11.3 g/dl (13.5-17.5); MEAN CORPUSCULAR HEMOGLOBIN 29.2 pg (27.0-33.0); MEAN CORPUSCULAR HGB CONC 31.6 g/dl (32.0-36.5); MEAN CORPUSCULAR VOLUME 92.5 fl (80.0-96.0); PLATELET COUNT, AUTOMATED 147 10^3/uL (150-450); RED BLOOD COUNT 3.87 10^6/uL (4.30-6.10); WHITE BLOOD COUNT 4.3 10^3/uL (4.0-10.0)
[2018-04-27 06:59] LABS: CALCIUM LEVEL 8.7 MG/DL (8.8-10.2); CREATININE FOR GFR 6.01 MG/DL (0.70-1.30); GLOMERULAR FILTRATION RATE 10.2 (>49); POTASSIUM SERUM 4.8 MEQ/L (3.5-5.1)
[2018-04-27 07:26] LABS: C REACTIVE PROTEIN QUANTITATIV 4.12 MG/DL (0.00-0.30)
[2018-04-27 10:00] VITALS: BP 130/61
--- NOTE | 2018-04-27 12:56 | IPNPDOC ---
Text Note Date of Service The patient was seen on 04/27/18. NOTE Subjective: Patient was seen and examined at the bedside. Currently has no new complaints. Denies any nausea, vomiting. Denies abdominal pain. Does not experience any diarrhea or constipation. Objective: Vitals (See below) General: Lying in bed, no acute distress, comfortable, AAOx3 HEENT: NC, AT CVS: RRR, +S1S2 Lungs: Fair air entry b/l, no rhonchi / rales / wheezing Abdomen: Soft, ND without tenderness Extremities: Extremities do not reveal any edema, - Calf tenderness, b/l partial metatarsal amputations (dressing in place) Assessment and plan: Chronic osteomyelitis - Clinically has no new complaints - Remains hemodynamically stable / afebrile - CRP improving - Completed 6 week course of Antibiotics; s/p Vancomycin and Zosyn - Outpatient f/u with Vascular surgery (Dr. Kaur) and Wound care (Dr. Downey) - c/w non-weight bearing status on both feet; family to demonstrate ability to use [employer] lift - Currently family does not want to pursue rehabilitation because of bad experienced in [place] - c/w OT / PT / PFS looking into transition the patient home - Establishing hospital bed at home PVD - See above s/p Delirium - possibly 2/2 non-compliance to antibiotics - Mentation has improved; now at baseline - MRI Brain 04/12: Small vessel ischemic disease. Mild volume loss. Decompensated systolic CHF - EF 30% - Still requiring supplemental oxygen; saturations have remained at 95% on 0.5 L nasal cannula; will transition to room air - CXR 04/19: Pulmonary edema pattern with moderate pleural effusions and bibasilar atelectasis. - c/w HD - Nephrology on consultation; appreciate their input ESRD on HD (TTS) - c/w HD - Nephrology on consultation; appreciate their input CAD - c/w ASA, Plavix, Metoprolol, Atorvastatin Normocytic anemia - c/w Ferrous sulfate GERD - c/w Famotidine DVT prophylaxis - c/w Heparin Disposition: - Trying to transition back to home setting after necessary equipment and physical therapy has been cleared Medical Equipment: - Beneficiary has medical condition which requires positioning of the body in ways not feasible with an ordinary bed in order to alleviate pain, - The beneficiary requires frequent changes in body position and/or has any immediate need for change in body position VS,Fishbone, I+O VS, Fishbone, I+O Laboratory Tests 04/27/18 05:47 Red Blood Count 3.87 L, Mean Corpuscular Volume 92.5, Mean Corpuscular Hemoglobin 29.2, Mean Corpuscular Hemoglobin Concent 31.6 L, Red Cell Distribution Width 19.1 H, Calcium Level 8.7 L Vital Signs Date Time Temp Pulse Resp B/P (MAP) Pulse Ox O2 Delivery O2 Flow Rate FiO2 04/27/18 10:00 96.0 61 17 130/61 (84) 98 Room Air 04/27/18 09:00 0.5 I&O- Last 24 Hours up to 6 AM 04/27/18 06:00 Intake Total 360 ml Output Total 0 ml Balance 360 ml MELIDA JOHNSON MD Apr 27, 2018 12:56
[2018-04-27] MEDS ORDERED: HEPARIN 1,000 UNITS/ML 10ML VIAL (FOR RADIOLOGY& DIALYSIS ONLY) XX ONE (13:15)
[2018-04-27 18:00] VITALS: BP 130/61
[2018-04-27 22:00] VITALS: BP 146/64
[2018-04-27] MEDS: ACETAMINOPHEN TAB 650MG DOSE (2X325MG) PO PRN (22:27)
[2018-04-27] MEDS: ATORVASTATIN 20 MG TAB PO SCH (22:27)
[2018-04-28 02:00] VITALS: BP 148/64
[2018-04-28 06:00] VITALS: BP 136/62
[2018-04-28] MEDS: HEPARIN SOD (PORCINE) 5000 UNITS/ML VIAL SC SCH ×3 (06:04→21:53)
[2018-04-28 06:18] LABS: HEMATOCRIT 36.7 % (42.0-52.0); HEMOGLOBIN 11.2 g/dl (13.5-17.5); MEAN CORPUSCULAR HEMOGLOBIN 28.4 pg (27.0-33.0); MEAN CORPUSCULAR HGB CONC 30.5 g/dl (32.0-36.5); MEAN CORPUSCULAR VOLUME 92.9 fl (80.0-96.0); PLATELET COUNT, AUTOMATED 131 10^3/uL (150-450); RED BLOOD COUNT 3.95 10^6/uL (4.30-6.10); WHITE BLOOD COUNT 5.3 10^3/uL (4.0-10.0)
[2018-04-28 06:35] LABS: C REACTIVE PROTEIN QUANTITATIV 4.56 MG/DL (0.00-0.30); CALCIUM LEVEL 8.7 MG/DL (8.8-10.2); CREATININE FOR GFR 4.12 MG/DL (0.70-1.30); GLOMERULAR FILTRATION RATE 15.8 (>49); POTASSIUM SERUM 4.4 MEQ/L (3.5-5.1)
--- NOTE | 2018-04-28 08:52 | IPN ---
DATE OF VISIT: 04/27/2018 Mr. Gonzalez is seen this morning on his bedside. He is currently resting in his bed. No fever or chills have been reported and nursing staff reports no vomiting or diarrhea. He is due for hemodialysis later today. PHYSICAL EXAMINATION: Temperature 96 degrees Fahrenheit, heart rate 62 per minute and respiratory rate 17 per minute. Blood pressure 130/60 mmHg and oxygen saturation 98% on room air. His head is atraumatic. Neck is supple and without jugular venous distention (JVD) or thyroid enlargement. Heart sounds are regular and lungs clear to auscultation. Abdomen is soft and nontender and bowel sounds are normal. Extremities have no cyanosis or clubbing. Both feet are wrapped in dressings. Today's labs show WBC count 4.3, hemoglobin 11.3 and hematocrit 35.8. Platelets 147. Sodium 140, potassium 4.8, chloride 105, CO2 25, BUN 30 and creatinine 6.01. C-reactive protein is 4.12 while it was 4.29 on April 22. PROBLEMS: 1. End-stage renal disease. The patient is due for dialysis today and he will be dialyzed this afternoon. His volume status is well-compensated and electrolytes are within normal range. 2. Anemia. Mild stable anemia which does not need any urgent intervention and will continue to monitor closely. 3. Hypertension. Blood pressure is very well controlled and no changes are being made today. 4. Bilateral foot wounds. The patient has dressings changed every day. His right foot wound has been healing nicely and left foot wound is still quite extensive. He remains on daily dressing changes and no systemic antibiotics are being used.
[2018-04-28] MEDS: CLOPIDOGREL 75 MG TAB PO SCH (09:24)
[2018-04-28] MEDS: guaiFENesin ER 600 MG TAB PO SCH ×2 (09:24→21:53)
[2018-04-28] MEDS: METOPROLOL SUCC (TopROL XL) 50MG **XL** TAB PO SCH (09:24)
[2018-04-28] MEDS: NEPHRO-VIT TAB (NEPHROCAPS) PO SCH (09:25)
[2018-04-28] MEDS: FAMOTIDINE 20 MG TAB PO SCH (09:25)
[2018-04-28] MEDS: FERROUS SULFATE 325MG TAB PO SCH (09:25)
[2018-04-28] MEDS: ASPIRIN 81 MG ENTERIC TAB PO SCH (09:25)
[2018-04-28 10:00] VITALS: BP 129/58
--- NOTE | 2018-04-28 13:29 | IPNPDOC ---
Text Note Date of Service The patient was seen on 04/28/18. NOTE Subjective: Patient was seen and examined at the bedside. Currently patient denies any problems overnight. Denies nausea, vomiting, abdominal pain, constipation, di arrhea, chest pain or shortness of breath. Objective: Vitals (See below) General: Lying in bed, no acute distress, comfortable, AAOx3 (oriented to person / place / time) HEENT: NC, AT CVS: RRR, +S1S2 Lungs: Fair air entry b/l, no appreciable rhonchi / wheezing / rales Abdomen: Soft, ND without tenderness Extremities: Extremities do not reveal any edema, - Calf tenderness, b/l partial metatarsal amputations (dressing remains in place) Assessment and plan: Chronic osteomyelitis - Clinically has no new complaints - Remains hemodynamically stable / there have been not documented fevers - CRP has had a slight elevation today; will continue to trend - Completed 6 week course of Antibiotics; s/p Vancomycin and Zosyn - Outpatient f/u with Vascular surgery (Dr. Kaur) and Wound care (Dr. Downey) - c/w non-weight bearing status on both feet; family to demonstrate ability to use [employer] lift - Currently family does not want to pursue rehabilitation because of bad experienced in [place] - c/w OT / PT / PFS looking into transition the patient home - Establishing hospital bed at home PVD - See above s/p Delirium - possibly 2/2 non-compliance to antibiotics - Remains oriented to person/place/time - Mentation has improved; now at baseline - MRI Brain 04/12: Small vessel ischemic disease. Mild volume loss. Decompensated systolic CHF - EF 30% - Still requiring supplemental oxygen; saturations have remained at 95% on 0.5 L nasal cannula; will transition to room air - CXR 04/19: Pulmonary edema pattern with moderate pleural effusions and bibasilar atelectasis. - c/w HD - Nephrology on consultation; appreciate their input ESRD on HD (TTS) - c/w HD - Nephrology on consultation; appreciate their input CAD - c/w ASA, Plavix, Metoprolol, Atorvastatin Normocytic anemia - c/w Ferrous sulfate GERD - c/w Famotidine DVT prophylaxis - c/w Heparin Disposition: - Trying to transition back to home setting after necessary equipment and physical therapy has been cleared Medical Equipment: - Beneficiary has medical condition which requires positioning of the body in ways not feasible with an ordinary bed in order to alleviate pain, - The beneficiary requires frequent changes in body position and/or has any immediate need for change in body position VSCirilo, I+O VSCirilo, I+O Laboratory Tests 04/28/18 05:57 Red Blood Count 3.95 L, Mean Corpuscular Volume 92.9, Mean Corpuscular Hemoglobin 28.4, Mean Corpuscular Hemoglobin Concent 30.5 L, Red Cell Distribution Width 18.8 H, Calcium Level 8.7 L Vital Signs Date Time Temp Pulse Resp B/P (MAP) Pulse Ox O2 Delivery O2 Flow Rate FiO2 04/28/18 10:00 97.7 62 17 129/58 (81) 96 Nasal Cannula 0.5 I&O- Last 24 Hours up to 6 AM 04/28/18 06:00 Intake Total 780 ml Output Total 2100 ml Balance -1320 ml MELIDA JOHNSON MD Apr 28, 2018 13:29
[2018-04-28 14:00] VITALS: BP 134/60
[2018-04-28 18:00] VITALS: BP 133/58
[2018-04-28] MEDS: ATORVASTATIN 20 MG TAB PO SCH (21:53)
[2018-04-28 22:00] VITALS: BP 134/60
[2018-04-29 02:00] VITALS: BP 126/64
[2018-04-29] MEDS: HEPARIN SOD (PORCINE) 5000 UNITS/ML VIAL SC SCH ×3 (05:42→20:43)
[2018-04-29 05:58] LABS: HEMATOCRIT 35.9 % (42.0-52.0); HEMOGLOBIN 11.2 g/dl (13.5-17.5); MEAN CORPUSCULAR HEMOGLOBIN 28.5 pg (27.0-33.0); MEAN CORPUSCULAR HGB CONC 31.2 g/dl (32.0-36.5); MEAN CORPUSCULAR VOLUME 91.3 fl (80.0-96.0); PLATELET COUNT, AUTOMATED 158 10^3/uL (150-450); RED BLOOD COUNT 3.93 10^6/uL (4.30-6.10); WHITE BLOOD COUNT 5.4 10^3/uL (4.0-10.0)
[2018-04-29 06:00] VITALS: BP 116/54
[2018-04-29 06:11] LABS: C REACTIVE PROTEIN QUANTITATIV 3.71 MG/DL (0.00-0.30); CALCIUM LEVEL 8.5 MG/DL (8.8-10.2); CREATININE FOR GFR 5.66 MG/DL (0.70-1.30); GLOMERULAR FILTRATION RATE 10.9 (>49); POTASSIUM SERUM 4.9 MEQ/L (3.5-5.1)
[2018-04-29] MEDS: METOPROLOL SUCC (TopROL XL) 50MG **XL** TAB PO SCH (09:00)
[2018-04-29] MEDS: FAMOTIDINE 20 MG TAB PO SCH (09:34)
[2018-04-29] MEDS: ASPIRIN 81 MG ENTERIC TAB PO SCH (09:34)
[2018-04-29] MEDS: guaiFENesin ER 600 MG TAB PO SCH ×2 (09:35→20:43)
[2018-04-29] MEDS: CLOPIDOGREL 75 MG TAB PO SCH (09:35)
[2018-04-29] MEDS: FERROUS SULFATE 325MG TAB PO SCH (09:35)
[2018-04-29] MEDS: NEPHRO-VIT TAB (NEPHROCAPS) PO SCH (09:35)
[2018-04-29 10:00] VITALS: BP 135/63
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
[2018-04-29 14:00] VITALS: BP 139/63
--- NOTE | 2018-04-29 14:26 | IPNPDOC ---
Text Note Date of Service The patient was seen on 04/29/18. NOTE Subjective: Patient was seen and examined at the bedside. No evidence of wheezing / rales or rhonchi. No CP/SOB or palpitations. No N/V, abdominal pain, C/D. Objective: Vitals (See below) General: Lying in bed, no acute distress, comfortable, Remains oriented to person/place/time, knows the president HEENT: NC, AT CVS: RRR, +S1S2 Lungs: Fair air entry b/l, auscultation does not reveal wheezing / rhonchi / rales Abdomen: Soft, non-distended, without tenderness Extremities: Extremities without edema, - Calf tenderness, b/l partial metatarsal amputations (dressing remains in place) Assessment and plan: Chronic osteomyelitis - Clinically has no new complaints; - Remains hemodynamically stable / there have been not documented fevers - CRP improving - Completed 6 week course of Antibiotics; s/p Vancomycin and Zosyn - Outpatient f/u with Vascular surgery (Dr. Kaur) and Wound care (Dr. Downey) - c/w non-weight bearing status on both feet - Currently family does not want to pursue rehabilitation because of bad experienced in [place] - c/w OT / PT / PFS looking into transition the patient home - Continuing to work on establishing hospital bed at home PVD - See above s/p Delirium - possibly 2/2 non-compliance to antibiotics - Again remains oriented to person/place/time, knows the predsident - Mentation has improved; now at baseline - MRI Brain 04/12: Small vessel ischemic disease. Mild volume loss. s/p Acute metabolic encephalopathy - possibly 2/2 sepsis - 2/2 chronic osteomyelitis / wound infection - Present on admission, since resolved - s/p antibiotics Decompensated systolic CHF - EF 30% - Still requiring supplemental oxygen; saturations have remained at 95% on 0.5 L nasal cannula; will transition to room air - CXR 04/19: Pulmonary edema pattern with moderate pleural effusions and bibasilar atelectasis. - c/w HD - Nephrology on consultation; appreciate their input ESRD on HD (TTS) - c/w HD - Nephrology on consultation; appreciate their input CAD - c/w ASA, Plavix, Metoprolol, Atorvastatin Normocytic anemia - c/w Ferrous sulfate GERD - c/w Famotidine DVT prophylaxis - c/w Heparin Disposition: - Trying to transition back to home setting after necessary equipment and physical therapy has been cleared Medical Equipment: - Beneficiary has medical condition which requires positioning of the body in w ays not feasible with an ordinary bed in order to alleviate pain, - The beneficiary requires frequent changes in body position and/or has any immediate need for change in body position VS,Fishbone, I+O VS, Fishbone, I+O Laboratory Tests 04/29/18 05:35 Red Blood Count 3.93 L, Mean Corpuscular Volume 91.3, Mean Corpuscular Hemoglobin 28.5, Mean Corpuscular Hemoglobin Concent 31.2 L, Red Cell Distribution Width 18.6 H, Calcium Level 8.5 L Vital Signs Date Time Temp Pulse Resp B/P (MAP) Pulse Ox O2 Delivery O2 Flow Rate FiO2 04/29/18 10:00 97.2 61 17 135/63 (87) 95 Nasal Cannula 0.5 I&O- Last 24 Hours up to 6 AM 04/29/18 06:00 Intake Total 390 ml Output Total 0 ml Balance 390 ml MELIDA JOHNSON MD Apr 29, 2018 14:26
[2018-04-29 18:00] VITALS: BP 131/61
[2018-04-29 22:00] VITALS: BP 153/64
[2018-04-29] MEDS: ATORVASTATIN 20 MG TAB PO SCH (23:23)
[2018-04-30 02:00] VITALS: BP 137/69
[2018-04-30 06:00] VITALS: BP 140/74
[2018-04-30 06:14] LABS: HEMATOCRIT 37.9 % (42.0-52.0); HEMOGLOBIN 11.8 g/dl (13.5-17.5); MEAN CORPUSCULAR HEMOGLOBIN 28.5 pg (27.0-33.0); MEAN CORPUSCULAR HGB CONC 31.1 g/dl (32.0-36.5); MEAN CORPUSCULAR VOLUME 91.5 fl (80.0-96.0); PLATELET COUNT, AUTOMATED 161 10^3/uL (150-450); RED BLOOD COUNT 4.14 10^6/uL (4.30-6.10); WHITE BLOOD COUNT 5.1 10^3/uL (4.0-10.0)
[2018-04-30] MEDS: HEPARIN SOD (PORCINE) 5000 UNITS/ML VIAL SC SCH ×3 (06:25→20:59)
[2018-04-30] MEDS: CLOPIDOGREL 75 MG TAB PO SCH (06:25)
[2018-04-30] MEDS: guaiFENesin ER 600 MG TAB PO SCH ×3 (06:25→20:59)
[2018-04-30] MEDS: METOPROLOL SUCC (TopROL XL) 50MG **XL** TAB PO SCH (06:26)
[2018-04-30] MEDS: FAMOTIDINE 20 MG TAB PO SCH (06:26)
[2018-04-30] MEDS: ASPIRIN 81 MG ENTERIC TAB PO SCH (06:27)
[2018-04-30] MEDS: NEPHRO-VIT TAB (NEPHROCAPS) PO SCH (06:27)
[2018-04-30] MEDS: FERROUS SULFATE 325MG TAB PO SCH (06:27)
[2018-04-30 06:46] LABS: C REACTIVE PROTEIN QUANTITATIV 4.13 MG/DL (0.00-0.30); CALCIUM LEVEL 8.6 MG/DL (8.8-10.2); CREATININE FOR GFR 7.03 MG/DL (0.70-1.30); GLOMERULAR FILTRATION RATE 8.5 (>49); POTASSIUM SERUM 5.6 MEQ/L (3.5-5.1)
[2018-04-30] MEDS ORDERED: HEPARIN 1,000 UNITS/ML 10ML VIAL (FOR RADIOLOGY& DIALYSIS ONLY) XX ONE (11:00)
--- NOTE | 2018-04-30 12:29 | IPN ---
DATE OF VISIT: 04/30/2018 Mr. Gonzalez is seen this morning on his bedside during hemodialysis. He remains confused and disoriented. At present, he is resting comfortably during dialysis. He has no fever, chills, nausea, vomiting, dyspnea, or chest pain. On physical examination, temperature 97.0 degrees Fahrenheit, heart rate 70 per minute, and respiratory rate 18 per minute. Blood pressure 140/74 mmHg and oxygen saturation 96%. His head is atraumatic. Neck is supple and without jugular venous distention (JVD) or thyroid enlargement. Right-sided internal jugular vein dialysis catheter is intact. Heart sounds are regular. Lungs clear to auscultation. Abdomen: Soft and nontender, and bowel sounds are normal. Extremities have no cyanosis or clubbing. Neurologically, he is confused and disoriented. Today's laboratories show WBC count 5.1, hemoglobin 11.8, and hematocrit 37.9. Platelets 161. Sodium 138, potassium 5.6, BUN 38, and creatinine 7.03. C-reactive protein is 4.13, which is essentially unchanged for last 4 days. PROBLEMS: 1. End-stage renal disease. The patient is tolerating dialysis, and he is being dialyzed this morning. 2. Hyperkalemia. This is related to end-stage renal disease. The patient is being dialyzed with low potassium bath today, and this will correct his hyperkalemia. The patient has not been eating very well, so we will let him eat a regular diet for now. Will correct his hyperkalemia with dialysis. 3. Anemia. His anemia has improved, and Aranesp is being stopped. 4. Chronic foot wounds. The patient has nonhealing wounds on both feet following partial amputation. He remains on wound care and not on any systemic antibiotics. 5. Altered mentation. This is most likely a chronic issue and fluctuates at times. The patient is most likely a candidate for long-term skilled nursing placement.
[2018-04-30 14:00] VITALS: BP 119/58
[2018-04-30] MEDS: ACETAMINOPHEN TAB 650MG DOSE (2X325MG) PO PRN ×2 (14:43→21:36)
--- NOTE | 2018-04-30 15:32 | IPNPDOC ---
Date Seen The patient was seen on 04/30/18. Progress Note Subjective: Patient is seen during hemodialysis today he denies any specific complaints other than that he wants to go home he is able to tolerate a year month where he is in the hospital and appears to be fully oriented at this time. He denies chest pressure shortness of breath nausea vomiting diarrhea Objective: Vitals (See below) General: Lying in bed, no acute distress, comfortable HEENT: NC, AT CVS: RRR, +S1S2 Lungs: Fair air entry b/l, auscultation does not reveal wheezing / rhonchi / rales Abdomen: Soft, non-distended, without tenderness Extremities: Extremities without edema, - Calf tenderness, b/l partial metatarsal amputations (dressing remains in place) Assessment and plan: Chronic osteomyelitis: Appears to be stable he's been off antibiotics for greater than a week he'll require further outpatient follow-up with vascular surgery regarding revascularization of the left lower extremity as well as Dr. Downey for wound care he is currently nonweightbearing patient family adamantly refused rehabilitation we are currently working on a plan home when cleared by PT prescription for a slide board was provided today efforts have already been made to establish a hospital bed at home. Also require outpatient follow-up with infectious disease PVD - See above s/p Delirium - possibly 2/2 non-compliance to antibiotics he is oriented me for me today he knows the president no observed issues during my encounters with him - Mentation has improved; now at baseline - MRI Brain 04/12: Small vessel ischemic disease. Mild volume loss. Decompensated systolic CHF - EF 30% - Still requiring supplemental oxygen; saturations have remained at 95% on 0.5 L nasal cannula; will transition to room air - c/w HD, Nephrology on consultation; appreciate their input ESRD on HD (TTS) - c/w HD, Nephrology on consultation; appreciate their input CAD - c/w ASA, Plavix, Metoprolol, Atorvastatin Normocytic anemia - c/w Ferrous sulfate GERD - c/w Famotidine DVT prophylaxis - c/w Heparin Disposition: - Trying to transition back to home setting after necessary equipment and physical therapy has been cleared Medical Equipment: - Beneficiary has medical condition which requires positioning of the body in ways not feasible with an ordinary bed in order to alleviate pain, - The beneficiary requires frequent changes in body position and/or has any immediate need for change in body position VS, I&O, 24H, Fishbone Vital Signs/I&O Vital Signs Date Time Temp Pulse Resp B/P (MAP) Pulse Ox O2 Delivery O2 Flow Rate FiO2 04/30/18 09:00 0.5 04/30/18 06:26 69 140/74 04/30/18 06:00 97.0 18 96 Nasal Cannula I&O- Last 24 Hours up to 6 AM 04/30/18 06:00 Intake Total 1120 ml Output Total 0 ml Balance 1120 ml Laboratory Data 24H LABS Laboratory Tests 2 04/29/18 17:13: Bedside Glucose (Misc Panel) 129H 04/29/18 23:47: Bedside Glucose (Misc Panel) 79L 04/30/18 05:52: Nucleated Red Blood Cells % (auto) 0.0, Anion Gap 8, Glomerular Filtration Rate 8.5L, Blood Urea Nitrogen 38H, Creatinine 7.03H, Sodium Level 138, Potassium Level 5.6H, Chloride Level 104, Carbon Dioxide Level 26, Calcium Level 8.6L, C- Reactive Protein, Quantitative 4.13H CBC/BMP Laboratory Tests 04/30/18 05:52 Red Blood Count 4.14 L, Mean Corpuscular Volume 91.5, Mean Corpuscular Hemoglobin 28.5, Mean Corpuscular Hemoglobin Concent 31.1 L, Red Cell Distribut ion Width 18.7 H, Calcium Level 8.6 L АННА FELIZ MD Apr 30, 2018 15:32
[2018-04-30 18:00] VITALS: BP 120/58
[2018-04-30] MEDS: ATORVASTATIN 20 MG TAB PO SCH (20:59)
[2018-04-30 22:00] VITALS: BP 104/50
[2018-05-01 02:00] VITALS: BP 112/57
[2018-05-01] MEDS: HEPARIN SOD (PORCINE) 5000 UNITS/ML VIAL SC SCH ×3 (05:31→21:18)
[2018-05-01 05:53] LABS: HEMATOCRIT 38.6 % (42.0-52.0); HEMOGLOBIN 11.9 g/dl (13.5-17.5); MEAN CORPUSCULAR HEMOGLOBIN 28.6 pg (27.0-33.0); MEAN CORPUSCULAR HGB CONC 30.8 g/dl (32.0-36.5); MEAN CORPUSCULAR VOLUME 92.8 fl (80.0-96.0); PLATELET COUNT, AUTOMATED 131 10^3/uL (150-450); RED BLOOD COUNT 4.16 10^6/uL (4.30-6.10); WHITE BLOOD COUNT 5.8 10^3/uL (4.0-10.0)
[2018-05-01 06:00] VITALS: BP 141/58
[2018-05-01 06:09] LABS: C REACTIVE PROTEIN QUANTITATIV 3.86 MG/DL (0.00-0.30); CALCIUM LEVEL 8.3 MG/DL (8.8-10.2); CREATININE FOR GFR 4.75 MG/DL (0.70-1.30); GLOMERULAR FILTRATION RATE 13.4 (>49); POTASSIUM SERUM 4.6 MEQ/L (3.5-5.1)
[2018-05-01] MEDS: CLOPIDOGREL 75 MG TAB PO SCH (09:21)
[2018-05-01] MEDS: FERROUS SULFATE 325MG TAB PO SCH (09:21)
[2018-05-01] MEDS: ASPIRIN 81 MG ENTERIC TAB PO SCH (09:21)
[2018-05-01] MEDS: FAMOTIDINE 20 MG TAB PO SCH (09:21)
[2018-05-01] MEDS: NEPHRO-VIT TAB (NEPHROCAPS) PO SCH (09:21)
[2018-05-01] MEDS: guaiFENesin ER 600 MG TAB PO SCH ×2 (09:22→21:17)
[2018-05-01] MEDS: METOPROLOL SUCC (TopROL XL) 50MG **XL** TAB PO SCH (09:22)
[2018-05-01] MEDS: ACETAMINOPHEN TAB 650MG DOSE (2X325MG) PO PRN (09:35)
[2018-05-01 10:00] VITALS: BP 118/58
--- NOTE | 2018-05-01 13:15 | IPNPDOC ---
Date Seen The patient was seen on 05/01/18. Progress Note Subjective: Patient is doing well he is fully oriented he has no complaints at this time. He tells me he is eager to go home Objective: Vitals (See below) General: Lying in bed, no acute distress, comfortable awake alert eating breakfast HEENT: NC, AT CVS: RRR, +S1S2 Lungs: Fair air entry b/l, auscultation does not reveal wheezing / rhonchi / rales Abdomen: Soft, non-distended, without tenderness Extremities: Extremities without edema, - Calf tenderness, b/l partial metatarsal amputations (dressing remains in place) Assessment and plan: Chronic osteomyelitis: Appears to be stable he's been off antibiotics for greater than a week he'll require further outpatient follow-up with vascular surgery regarding revascularization of the left lower extremity as well as Dr. Downey for wound care he is currently nonweightbearing patient family adamantly refused rehabilitation we are currently working on a plan home when cleared by PT, prescription for a slide board was provided efforts have already been made to establish a hospital bed at home. Also require outpatient follow-up with infectious disease PVD - See above s/p Delirium - possibly 2/2 non-compliance to antibiotics he is oriented me for me today he knows the president no observed issues during my encounters with him - Mentation has improved; now at baseline - MRI Brain 04/12: Small vessel ischemic disease. Mild volume loss. Decompensated systolic CHF - EF 30% - Still requiring supplemental oxygen; saturations have remained at 95% on 0.5 L nasal cannula; will transition to room air - c/w HD, Nephrology on consultation; appreciate their input ESRD on HD (TTS) - c/w HD, Nephrology on consultation; appreciate their input CAD - c/w ASA, Plavix, Metoprolol, Atorvastatin Normocytic anemia - c/w Ferrous sulfate GERD - c/w Famotidine DVT prophylaxis - c/w Heparin Disposition: - Trying to transition back to home possibly on Sunday if cleared by PT Medical Equipment: - Beneficiary has medical condition which requires positioning of the body in ways not feasible with an ordinary bed in order to alleviate pain, - The beneficiary requires frequent changes in body position and/or has any immediate need for change in body position VS, I&O, 24H, Fishbone Vital Signs/I&O Vital Signs Date Time Temp Pulse Resp B/P (MAP) Pulse Ox O2 Delivery O2 Flow Rate FiO2 05/01/18 10:00 97.6 61 19 118/58 (78) 97 05/01/18 02:00 Room Air 04/30/18 22:00 0.5 I&O- Last 24 Hours up to 6 AM 05/01/18 06:00 Intake Total 790 ml Output Total 1700 ml Balance -910 ml Laboratory Data 24H LABS Laboratory Tests 2 04/30/18 17:22: Bedside Glucose (Misc Panel) 121H 05/01/18 00:10: Bedside Glucose (Misc Panel) 100 05/01/18 05:29: Nucleated Red Blood Cells % (auto) 0.0, Anion Gap 6L, Glomerular Filtration Rate 13.4L, Blood Urea Nitrogen 20H, Creatinine 4.75H, Sodium Level 136, Potassium Level 4.6, Chloride Level 102, Carbon Dioxide Level 28, Calcium Level 8.3L, C- Reactive Protein, Quantitative 3.86H 05/01/18 05:58: Bedside Glucose (Misc Panel) 70L 05/01/18 11:34: Bedside Glucose (Misc Panel) 90 CBC/BMP Laboratory Tests 05/01/18 05:29 Red Blood Count 4.16 L, Mean Corpuscular Volume 92.8, Mean Corpuscular Hemoglobin 28.6, Mean Corpuscular Hemoglobin Concent 30.8 L, Red Cell Distribution Width 18.3 H, Calcium Level 8.3 L АННА FELIZ MD May 01, 2018 13:15
[2018-05-01 14:00] VITALS: BP 129/60
[2018-05-01 18:00] VITALS: BP 121/63
--- NOTE | 2018-05-01 21:05 | IPN ---
DATE: 05/01/2018 Mr. Gonzalez is seen this morning on his bedside. He remains confused and somewhat disoriented, which is about his baseline. He is able to have a conversation but sometimes he gets off the track and talks irrelevant. He has no fever, chills, nausea or vomiting. He was dialyzed yesterday which he tolerated very well. PHYSICAL EXAMINATION Temperature 96 degrees Fahrenheit, heart rate 60 per minute and respiratory rate 18 per minute. Blood pressure 120/58 mmHg and oxygen saturation 97% on room air. Head: Is atraumatic. Neck is supple and without jugular venous distention (JVD) or thyroid enlargement. Heart: Sounds are regular. Lungs clear to auscultation. Abdomen: Soft and nontender. Bowel sounds are normal. Extremities: He has bilateral partial foot amputation and stumps are wrapped in dressings. Neurologically he is confused and disoriented. LABS: Today's labs show WBC count 5.8, hemoglobin 11.9 and hematocrit 38.6. Sodium 136, potassium 4.6, CO2 28, BUN 20 and creatinine 4.75. PROBLEMS: 1. End-stage renal disease. The patient was dialyzed yesterday and next dialysis will be scheduled for tomorrow. Electrolytes are stable and volume is well-compensated. 2. Hyperkalemia. Potassium level has improved with dialysis and we will continue to monitor his electrolytes. He will be dialyzed with low potassium bath from now onwards. 3. Anemia. His anemia has improved and stable and we have stopped his Aranesp. 4. Altered mentation. This is about his baseline. He tries to have a conversation. However, at times he is quite confused and disoriented. He is not agitated. 5. Hypertension. Blood pressure is well-controlled on current antihypertensive meds. No changes are being made today.
[2018-05-01] MEDS: ATORVASTATIN 20 MG TAB PO SCH (21:17)
[2018-05-01 22:00] VITALS: BP 134/59
[2018-05-02 02:00] VITALS: BP 150/58
[2018-05-02 06:00] VITALS: BP 123/65
[2018-05-02] MEDS: HEPARIN SOD (PORCINE) 5000 UNITS/ML VIAL SC SCH ×4 (06:00→22:42)
[2018-05-02] MEDS: ASPIRIN 81 MG ENTERIC TAB PO SCH ×2 (06:58→12:51)
[2018-05-02] MEDS: CLOPIDOGREL 75 MG TAB PO SCH ×3 (06:58→12:51)
[2018-05-02] MEDS: FAMOTIDINE 20 MG TAB PO SCH ×3 (06:58→12:51)
[2018-05-02] MEDS: NEPHRO-VIT TAB (NEPHROCAPS) PO SCH ×3 (06:58→12:56)
[2018-05-02] MEDS: guaiFENesin ER 600 MG TAB PO SCH ×4 (06:58→21:00)
[2018-05-02] MEDS: FERROUS SULFATE 325MG TAB PO SCH ×3 (06:59→13:31)
--- NOTE | 2018-05-02 11:59 | IPN ---
DATE OF VISIT: 05/02/2018 Mr. Gonzalez is seen during dialysis this morning on his bedside. He has been confused at times. His family insists to take him home per Dr. Villa. Previously, I was told that he is likely to go to care home. In any event, he has been doing well and remains afebrile. He has been dialyzed three times a week and his compliance with dialysis treatment has been much better here in the hospital. Outpatient he has been noncompliant with dialysis treatments and misses his treatments frequently. On physical exam, temperature 96.8 degrees Fahrenheit, heart rate 60 per minute and respiratory rate 16 per minute. Blood pressure 123/65 mmHg and oxygen saturation 96% on room air. Head is atraumatic. Neck is supple and without jugular venous distention (JVD) or thyroid enlargement. Heart sounds are regular and lungs clear to auscultation. Abdomen soft and nontender. Bowel sounds are normal. Extremities have no cyanosis or clubbing. He has partial amputation of both feet and toes are wrapped in dressings. Neurologically, he remains somewhat confused, which is worse at times. Only lab done today was a C-reactive protein, which is 3.41. CBC and chemistry were done yesterday, which have been reviewed. PROBLEMS: 1. End-stage renal disease. Patient is being dialyzed today and we will continue with maintenance hemodialysis three times a week as long as he is in hospital. 2. Anemia. His anemia has improved and corrected. His Aranesp is being stopped. He did not receive a dose this week. 3. Hyperkalemia. He does get occasional hyperkalemia, however has been doing very well. His chemistry should be checked again tomorrow. 4. Infected foot wounds. Patient did have infection, which has improved, and he is currently not on any systemic antibiotics. He continues with wound care alone. 5. Disposition: From a renal standpoint, patient can be discharged to home if he is going to go home. He should come to hemodialysis clinic as outpatient three times a week. 6. Hypertension. His blood pressure seems reasonably well-controlled.
[2018-05-02] MEDS ORDERED: HEPARIN 1,000 UNITS/ML 10ML VIAL (FOR RADIOLOGY& DIALYSIS ONLY) XX ONE (12:00)
[2018-05-02] MEDS ORDERED: ONDANSETRON 4MG/2ML VIAL (J2405) IV PRN (12:15)
[2018-05-02] MEDS: METOPROLOL SUCC (TopROL XL) 50MG **XL** TAB PO SCH ×2 (12:30→12:52)
[2018-05-02] MEDS: ACETAMINOPHEN TAB 650MG DOSE (2X325MG) PO PRN ×2 (13:01→22:41)
--- NOTE | 2018-05-02 13:52 | IPNPDOC ---
Date Seen The patient was seen on 05/02/18. Progress Note Subjective: Patient is has some mild complaints of nausea at this time, otherwise he tells me he is eager to go home Objective: Vitals (See below) General: Lying in bed examined during hemodialysis, no acute distress, comfortable awake alert eating breakfast HEENT: NC, AT CVS: RRR, +S1S2 Lungs: Fair air entry b/l, auscultation does not reveal wheezing / rhonchi / r ales Abdomen: Soft, non-distended, mild right upper quadrant tenderness to very soft palpation Extremities: Extremities without edema, - Calf tenderness, b/l partial metatarsal amputations (dressing remains in place) Assessment and plan: Chronic osteomyelitis: Appears to be stable he's been off antibiotics for greater than a week he'll require further outpatient follow-up with vascular surgery regarding revascularization of the left lower extremity as well as Dr. Downey for wound care he is currently nonweightbearing, patient & family adamantly refused rehabilitation placement as well as care home facility placement we are currently working on a plan home when cleared by PT although I did speak with nephrology today and we both agree this is less than optimal however it is best to which the patient and family will agree to, prescription for a slide board was provided efforts have already been made to establish a hospital bed at home. Also will require outpatient follow-up with infectious disease regarding osteomyelitis of his bilateral lower extremities Abdominal pain: Appears to be something new today I'll provide him with Zofran and check a CT scan of the abdomen he tells me only happens during hemodialysis which is unusual does not complain of the previously PVD - See above s/p Delirium - possibly 2/2 non-compliance to antibiotics he is once again oriented me for me today he knows the president I suspect his mentation is now at baseline - MRI Brain 04/12: Small vessel ischemic disease. Mild volume loss. Decompensated systolic CHF - EF 30,% c/w HD, Nephrology on consultation; appreciate their input volume status appears to be optimized ESRD on HD (TTS) - c/w HD, Nephrology on consultation; appreciate their input CAD - c/w ASA, Plavix, Metoprolol, Atorvastatin Normocytic anemia - c/w Ferrous sulfate GERD - c/w Famotidine Medical noncompliance: Lengthy discussions were had with both him and his previously I feel as though his long-term prognosis is guarded in that he is at high likelihood for readmission the importance of attending dialysis regularly has been stressed to him and that it is necessary for him to continue living DVT prophylaxis - c/w Heparin Disposition: - Trying to transition back to home possibly tomorrow if cleared by PT his long- term prognosis is guarded Medical Equipment: - Beneficiary has medical condition which requires positioning of the body in ways not feasible with an ordinary bed in order to alleviate pain, - The beneficiary requires frequent changes in body position and/or has any immediate need for change in body position VS, I&O, 24H, Fishbone Vital Signs/I&O Vital Signs Date Time Temp Pulse Resp B/P (MAP) Pulse Ox O2 Delivery O2 Flow Rate FiO2 05/02/18 06:00 96.8 57 16 123/65 (84) 96 Room Air 04/30/18 22:00 0.5 I&O- Last 24 Hours up to 6 AM 05/02/18 06:00 Intake Total 880 ml Output Total 0 ml Balance 880 ml Laboratory Data 24H LABS Laboratory Tests 2 05/01/18 17:11: Bedside Glucose (Misc Panel) 99 05/01/18 21:07: Bedside Glucose (Misc Panel) 102 05/02/18 00:57: Bedside Glucose (Misc Panel) 78L 05/02/18 05:33: C-Reactive Protein, Quantitative 3.41H 05/02/18 06:26: Bedside Glucose (Misc Panel) 75L АННА FELIZ MD May 02, 2018 13:52
[2018-05-02 14:00] VITALS: BP 102/51
--- NOTE | 2018-05-02 15:02 | REP ---
CT abdomen and pelvis without IV or oral contrast: History: Right upper quadrant abdomen pain. No comparison study. Findings: Preliminary radiologist chief of breast imaging radiograph demonstrates that the hands are overlying the abdomen. The bowel gas pattern is unremarkable. The lung bases show bilateral lower lobe atelectatic changes versus lower lobe infiltrates. There are small bilateral pleural effusions with fairly impressive parietal and probably visceral pleural thickening suggesting exudates. Extensive vascular calcification is seen. There is also evidence of myocardial calcification in the left and right ventricle. There is calcific material in the dependent portion the gallbladder and there is some evidence of gallbladder wall calcification. No liver mass lesion or spleen focal lesion is seen. No adrenal lesion is observed. The pancreas is unremarkable. Small and large intestinal bowel loops are unremarkable. No abdominal wall defect is seen. There is evidence of a right-sided arterial vascular graft in the right groin. A few borderline lymph nodes are seen in each inguinal region. Impression: Bilateral pleural effusions with pleural thickening similar to the findings from chest CT April 05, 2018. There are areas of collapse and consolidation in the lower lobes bilaterally, also unchanged. Extensive vascular calcification is noted. Myocardial and gallbladder wall calcification is also noted. Cholelithiasis is suspected. No other acute intra-abdominal abnormality. Electronically Signed by Aki Parson MD 05/02/2018 04:26 P
[2018-05-02 18:00] VITALS: BP 116/56
[2018-05-02] MEDS: ATORVASTATIN 20 MG TAB PO SCH (21:00)
[2018-05-02 22:00] VITALS: BP 135/60
[2018-05-03 02:00] VITALS: BP 105/51
[2018-05-03] MEDS: HEPARIN SOD (PORCINE) 5000 UNITS/ML VIAL SC SCH ×3 (05:17→22:00)
[2018-05-03 06:00] VITALS: BP 117/58
[2018-05-03 06:10] LABS: HEMATOCRIT 41.3 % (42.0-52.0); HEMOGLOBIN 12.5 g/dl (13.5-17.5); MEAN CORPUSCULAR HEMOGLOBIN 28.5 pg (27.0-33.0); MEAN CORPUSCULAR HGB CONC 30.3 g/dl (32.0-36.5); MEAN CORPUSCULAR VOLUME 94.3 fl (80.0-96.0); PLATELET COUNT, AUTOMATED 142 10^3/uL (150-450); RED BLOOD COUNT 4.38 10^6/uL (4.30-6.10); WHITE BLOOD COUNT 6.8 10^3/uL (4.0-10.0)
[2018-05-03 06:39] LABS: CALCIUM LEVEL 8.3 MG/DL (8.8-10.2); CREATININE FOR GFR 4.87 MG/DL (0.70-1.30); POTASSIUM SERUM 5.2 MEQ/L (3.5-5.1)
[2018-05-03] MEDS: FAMOTIDINE 20 MG TAB PO SCH (09:25)
[2018-05-03] MEDS: guaiFENesin ER 600 MG TAB PO SCH ×2 (09:25→21:00)
[2018-05-03] MEDS: FERROUS SULFATE 325MG TAB PO SCH (09:25)
[2018-05-03] MEDS: METOPROLOL SUCC (TopROL XL) 50MG **XL** TAB PO SCH (09:25)
[2018-05-03] MEDS: ASPIRIN 81 MG ENTERIC TAB PO SCH (09:25)
[2018-05-03] MEDS: CLOPIDOGREL 75 MG TAB PO SCH (09:25)
[2018-05-03] MEDS: ACETAMINOPHEN TAB 650MG DOSE (2X325MG) PO PRN ×3 (09:26→15:32)
[2018-05-03] MEDS: NEPHRO-VIT TAB (NEPHROCAPS) PO SCH (09:26)
[2018-05-03 10:00] VITALS: BP 132/60
--- NOTE | 2018-05-03 11:44 | IPNPDOC ---
Date Seen The patient was seen on 05/03/18. Progress Note Subjective: Patient continues to complain of nausea at this time he tells me is worse during hemodialysis he also complains of some right upper quadrant pain which she also states is more associated with dialysis and eating Objective: Vitals (See below) General: Lying in bed sleeping peacefully but easily arousable to verbal stimuli, no acute distress, comfortable awake alert eating breakfast HEENT: NC, AT CVS: RRR, +S1S2 Lungs: Fair air entry b/l, auscultation does not reveal wheezing / rhonchi / rales Abdomen: Soft, non-distended, mild right upper quadrant tenderness to even to very soft palpation Extremities: Extremities without edema, - Calf tenderness, b/l partial metatarsal amputations (dressing remains in place) Assessment and plan: Chronic osteomyelitis: Appears to be stable he's been off antibiotics for gre ater than a week he'll require further outpatient follow-up with vascular surgery regarding revascularization of the left lower extremity as well as Dr. Downey for wound care he is currently nonweightbearing, patient & family adamantly refused rehabilitation placement as well as alf facility placement we are currently working on a plan home. Patient will Also will require outpatient follow-up with infectious disease regarding osteomyelitis of his bilateral lower extremities Abdominal pain: Appears to be something new a CT scan yesterday afternoon was fairly unrevealing I will check a liver profile as well as a right upper quadrant ultrasound should this be unrevealing by next up would be to consider pursuing a vascular surgery consult he does have significant arterial vascular compromise and could certainly have decreased blood flow and intestinal angina as in by food and dialysis. I had hoped for potential discharge home today but given his vomiting and pain I think he is best served by further inpatient evaluation regarding this PVD - See above s/p Delirium - possibly 2/2 non-compliance to antibiotics he is once again oriented me for me today he knows the president I suspect his mentation is now at baseline - MRI Brain 04/12: Small vessel ischemic disease. Mild volume loss. Decompensated systolic CHF - EF 30,% c/w HD, Nephrology on consultation; appreciate their input volume status appears to be optimized ESRD on HD (TTS) - c/w HD, Nephrology on consultation; appreciate their input CAD - c/w ASA, Plavix, Metoprolol, Atorvastatin Normocytic anemia - c/w Ferrous sulfate GERD - c/w Famotidine Medical noncompliance: Lengthy discussions were had with both him and his previously I feel as though his long-term prognosis is guarded in that he is at high likelihood for readmission the importance of attending dialysis regularly has been stressed to him and that it is necessary for him to continue living DVT prophylaxis - c/w Heparin Disposition: Trying to transition back to home although this is less than ideal is what the patient is Y for only agreeable to VS, I&O, 24H, Fishbone Vital Signs/I&O Vital Signs Date Time Temp Pulse Resp B/P (MAP) Pulse Ox O2 Delivery O2 Flow Rate FiO2 05/03/18 10:00 97.1 55 17 132/60 (84) 97 Nasal Cannula 0.5 I&O- Last 24 Hours up to 6 AM 05/03/18 06:00 Intake Total 150 ml Output Total 1500 ml Balance -1350 ml Laboratory Data 24H LABS Laboratory Tests 2 05/03/18 05:30: Nucleated Red Blood Cells % (auto) 0.0, Anion Gap 7L, Glomerular Filtration Rate 13.0L, Blood Urea Nitrogen 21H, Creatinine 4.87H, Sodium Level 134L, Potassium Level 5.2H, Chloride Level 98, Carbon Dioxide Level 29, Calcium Level 8.3L CBC/BMP Laboratory Tests 05/03/18 05:30 Red Blood Count 4.38, Mean Corpuscular Volume 94.3, Mean Corpuscular Hemoglobin 28.5, Mean Corpuscular Hemoglobin Concent 30.3 L, Red Cell Distribution Width 17.8 H, Calcium Level 8.3 L АННА FELIZ MD May 03, 2018 11:44
[2018-05-03 12:34] LABS: ALBUMIN 2.5 GM/DL (3.2-5.2); BILIRUBIN,DIRECT 0.2 MG/DL (0.0-0.2); BILIRUBIN,TOTAL 0.7 MG/DL (0.2-1.0)
[2018-05-03 14:00] VITALS: BP 124/51
--- NOTE | 2018-05-03 14:36 | IPNPDOC ---
Text Note Date of Service The patient was seen on 05/03/18. NOTE Subjective: Patient was examined at bedside this afternoon. He was accompanied by his . He was sleeping peacefully and had to be awoken. He was dialyzed yesterday. Afebrile overnight. Physical exam VITALS: See below GENERAL APPEARANCE: Elderly, -[place] gentleman, skinny in appearance, no acute complaints HEENT: Neck is supple, no thyromegaly, no JVD, head is atraumatic, no ulcers, pupils are round, reactive to light THORAX: Symmetrical. LUNGS: Clear to auscultation bilaterally. HEART: Normal S1, S2. No murmurs, no rubs, no gallops ABDOMEN: Soft. No masses. Bowel sounds are present. EXTREMITIES: Movement, no cyanosis, no deformities Nuero: Alert and oriented to place Labs See below PROBLEMS: 1. End-stage renal disease. Currently on hemodialysis 3 times a week. He is scheduled for dialysis tomorrow. 2. Anemia.His Aranesp has been stopped for this week. His anemia continues to improve 3. Hyperkalemia. Current potassium is 5.2. Patient has had a history of occasional hyperkalemia. We'll continue to monitor with dialysis. 4. Infected foot wounds. He continues wound care. His wound does not appear to be infected. 5. Disposition: Can be discharged home. When he to continue outpatient hemodialysis 6. Hypertension. Well-controlled with current regimen VS,Fishbone, I+O VS, Fishbone, I+O Laboratory Tests 05/03/18 05:30 Red Blood Count 4.38, Mean Corpuscular Volume 94.3, Mean Corpuscular Hemoglobin 28.5, Mean Corpuscular Hemoglobin Concent 30.3 L, Red Cell Distribution Width 17.8 H Vital Signs Date Time Temp Pulse Resp B/P (MAP) Pulse Ox O2 Delivery O2 Flow Rate FiO2 05/03/18 10:00 97.1 55 17 132/60 (84) 97 Nasal Cannula 0.5 I&O- Last 24 Hours up to 6 AM 05/03/18 05:59 Intake Total 370 ml Output Total 1500 ml Balance -1130 ml GME ATTESTATION GME ATTESTATION My faculty preceptor for this patient encounter was physically present during the encounter and was fully available. All aspects of the patient interview, examination, medical decision making process, and medical care plan development were reviewed and approved by the faculty preceptor. The faculty preceptor is aware and concurs with the plan as stated in the body of this note and will attest to such by his/her cosignature. ELLE CHARLES DO May 03, 2018 13:43
[2018-05-03 18:00] VITALS: BP 127/55
[2018-05-03] MEDS: ATORVASTATIN 20 MG TAB PO SCH (21:00)
[2018-05-03 22:00] VITALS: BP 106/53
[2018-05-04] MEDS: HEPARIN SOD (PORCINE) 5000 UNITS/ML VIAL SC SCH ×4 (05:59→22:42)
[2018-05-04 06:00] VITALS: BP 122/56
--- NOTE | 2018-05-04 06:39 | REP ---
Right upper quadrant sonography: History: Right upper quadrant pain. Nausea and vomiting. Findings: Scanning through right upper quadrant of the abdomen demonstrates a rounded echogenic structure in the dependent portion of the gallbladder consistent with sludge ball versus nonshadowing stone. Gallbladder wall is borderline with a tiny focus of pericholecystic fluid. No tenderness to scanning. Common bile duct is normal measuring 0.1 cm in greatest diameter. There is evidence of mild fatty infiltration of the liver. The pancreas is obscured by abdominal gas. There is no evidence of ascites. Cortical thinning is seen in the right kidney. The right kidney measures 9.1 x 3.8 x 4.1 cm. A small amount of right pleural fluid is noted. Impression: Small amount right pleural fluid. Tiny sliver of pericholecystic fluid and mild gallbladder wall thickening is seen. There is sludge versus nonshadowing calculus in the gallbladder lumen. Electronically Signed by Aki Parson MD 05/04/2018 08:25 A
[2018-05-04 08:38] LABS: HEMATOCRIT 41.4 % (42.0-52.0); HEMOGLOBIN 12.7 g/dl (13.5-17.5); MEAN CORPUSCULAR HEMOGLOBIN 28.4 pg (27.0-33.0); MEAN CORPUSCULAR HGB CONC 30.7 g/dl (32.0-36.5); MEAN CORPUSCULAR VOLUME 92.6 fl (80.0-96.0); PLATELET COUNT, AUTOMATED 183 10^3/uL (150-450); RED BLOOD COUNT 4.47 10^6/uL (4.30-6.10); WHITE BLOOD COUNT 8.8 10^3/uL (4.0-10.0)
[2018-05-04 09:17] LABS: CALCIUM LEVEL 8.6 MG/DL (8.8-10.2); CREATININE FOR GFR 6.46 MG/DL (0.70-1.30); GLOMERULAR FILTRATION RATE 9.4 (>49); POTASSIUM SERUM 5.2 MEQ/L (3.5-5.1)
[2018-05-04] MEDS ORDERED: HEPARIN 1,000 UNITS/ML 10ML VIAL (FOR RADIOLOGY& DIALYSIS ONLY) XX ONE (10:30)
--- NOTE | 2018-05-04 11:09 | IPNPDOC ---
Text Note Date of Service The patient was seen on 05/04/18. NOTE Subjective: Patient was examined during dialysis. He appears to be in his usual confused state. He had low blood sugar last night and has been encourage to increase his PO intake. How much that he understands in questionable given his current mental state. Physical exam VITALS: See below GENERAL APPEARANCE: thin Elderly, -[place] gentleman, no apparent distress HEENT: No JVD, head is atraumatic LUNGS: Clear to auscultation bilaterally. HEART: Normal S1, S2. No murmurs, no rubs, no gallops ABDOMEN: Soft. No masses. Bowel sounds are present. EXTREMITIES: White bandages wrapped around bilateral lower extremities Nuero:Alert and orientated to person Labs See below PROBLEMS: 1. End-stage renal disease. Currently on hemodialysis 3 times a week. He is currently undergoing dialysis. Will continue with regular schedule. 2. Anemia. Aranesp has been stopped for this week.H and H stable and improving 3. Hyperkalemia. Current potassium is 5.2. Patient has had a history of occasional hyperkalemia. We'll continue to monitor after dialysis. 4. Infected foot wounds. He continues wound care. His wound does not appear to be infected. Remains afebrile 5. Hypertension. Well-controlled with current regimen 6. Disposition: Can be discharged home. When he to continue outpatient hemodialysis VS,Cirilo, I+O VS, Cirilo, I+O Laboratory Tests 05/04/18 08:18 Red Blood Count 4.47, Mean Corpuscular Volume 92.6, Mean Corpuscular Hemoglobin 28.4, Mean Corpuscular Hemoglobin Concent 30.7 L, Red Cell Distribution Width 17.4 H, Calcium Level 8.6 L Vital Signs Date Time Temp Pulse Resp B/P (MAP) Pulse Ox O2 Delivery O2 Flow Rate FiO2 05/04/18 08:00 0.5 05/04/18 06:00 97.8 58 18 122/56 (78) 98 Nasal Cannula I&O- Last 24 Hours up to 6 AM 05/04/18 06:00 Intake Total 50 ml Output Total 0 ml Balance 50 ml GME ATTESTATION GME ATTESTATION My faculty preceptor for this patient encounter was physically present during the encounter and was fully available. All aspects of the patient interview, examination, medical decision making process, and medical care plan development were reviewed and approved by the faculty preceptor. The faculty preceptor is aware and concurs with the plan as stated in the body of this note and will attest to such by his/her cosignature. ELLE CHARLES DO May 04, 2018 11:09
[2018-05-04] MEDS: guaiFENesin ER 600 MG TAB PO SCH ×3 (12:15→22:42)
[2018-05-04] MEDS: NEPHRO-VIT TAB (NEPHROCAPS) PO SCH (12:15)
[2018-05-04] MEDS: FAMOTIDINE 20 MG TAB PO SCH (12:15)
[2018-05-04] MEDS: FERROUS SULFATE 325MG TAB PO SCH (12:15)
[2018-05-04] MEDS: ASPIRIN 81 MG ENTERIC TAB PO SCH (12:15)
[2018-05-04] MEDS: CLOPIDOGREL 75 MG TAB PO SCH (12:15)
[2018-05-04] MEDS: METOPROLOL SUCC (TopROL XL) 50MG **XL** TAB PO SCH (12:16)
[2018-05-04 12:27] VITALS: BP 90/48
--- NOTE | 2018-05-04 12:48 | IPNPDOC ---
Date Seen The patient was seen on 05/04/18. Progress Note Subjective: Patient tells me that his nausea and abdominal pain is better today he is not experiencing at this time Objective: Vitals (See below) General: Lying in bed awake alert no acute distress, comfortable HEENT: NC, AT CVS: RRR, +S1S2 Lungs: Fair air entry b/l, auscultation does not reveal wheezing / rhonchi / rales Abdomen: Soft, non-distended, mild right upper quadrant tenderness to even to very soft palpation Extremities: Extremities without edema, - Calf tenderness, b/l partial metatarsal amputations (dressing remains in place) Assessment and plan: Chronic osteomyelitis: Appears to be stable he's been off antibiotics, he'll require further outpatient follow-up with vascular surgery regarding revascularization of the left lower extremity as well as Dr. Downey for wound care he is currently nonweightbearing, patient & family adamantly refused rehabilitation placement as well as halfway facility placement we are currently working on a plan home. Patient will Also will require outpatient foll ow-up with infectious disease regarding osteomyelitis of his bilateral lower extremities Abdominal pain: Appears to be improved today CT and ultrasound imaging have been negative for any etiology is examined during hemodialysis today and it does not appear to be significant at all should it recur or increase would consider vascular surgery evaluation. PVD - See above s/p Delirium - possibly 2/2 non-compliance to antibiotics he is once again oriented me for me today he knows the president I suspect his mentation is now at baseline - MRI Brain 04/12: Small vessel ischemic disease. Mild volume loss. Decompensated systolic CHF - EF 30,% c/w HD, Nephrology on consultation; appreciate their input volume status appears to be optimized ESRD on HD (TTS) - c/w HD, Nephrology on consultation; appreciate their input CAD - c/w ASA, Plavix, Metoprolol, Atorvastatin Normocytic anemia - c/w Ferrous sulfate GERD - c/w Famotidine Medical noncompliance: Lengthy discussions were had with both him and his previously I feel as though his long-term prognosis is guarded in that he is at high likelihood for readmission the importance of attending dialysis regularly has been stressed to him and that it is necessary for him to continue living DVT prophylaxis - c/w Heparin Disposition: Trying to transition back to home although this is less than ideal it is the only plan the patient and his will agree to VS, I&O, 24H, Fishbone Vital Signs/I&O Vital Signs Date Time Temp Pulse Resp B/P (MAP) Pulse Ox O2 Delivery O2 Flow Rate FiO2 05/04/18 12:27 60 16 90/48 (62) 95 Nasal Cannula 2.0 05/04/18 06:00 97.8 I&O- Last 24 Hours up to 6 AM 05/04/18 06:00 Intake Total 50 ml Output Total 0 ml Balance 50 ml Laboratory Data 24H LABS Laboratory Tests 2 05/03/18 18:23: Bedside Glucose (Misc Panel) 63L 05/04/18 08:18: Nucleated Red Blood Cells % (auto) 0.0, Anion Gap 8, Glomerular Filtration Rate 9.4L, Blood Urea Nitrogen 34#H, Creatinine 6.46H, Sodium Level 135L, Potassium Level 5.2H, Chloride Level 99, Carbon Dioxide Level 28, Calcium Level 8.6L CBC/BMP Laboratory Tests 05/04/18 08:18 Red Blood Count 4.47, Mean Corpuscular Volume 92.6, Mean Corpuscular Hemoglobin 28.4, Mean Corpuscular Hemoglobin Concent 30.7 L, Red Cell Distribution Width 1 7.4 H, Calcium Level 8.6 L АННА FELIZ MD May 04, 2018 12:47
[2018-05-04 14:00] VITALS: BP 118/53
[2018-05-04 18:00] VITALS: BP 119/50
[2018-05-04] MEDS: ATORVASTATIN 20 MG TAB PO SCH ×2 (20:39→22:42)
[2018-05-04 22:00] VITALS: BP 117/70
[2018-05-05] VITALS (9 sets, daily range): BP systolic 72–129; BP diastolic 34–76
[2018-05-05 06:00] LABS: HEMATOCRIT 47.8 % (42.0-52.0); HEMOGLOBIN 14.5 g/dl (13.5-17.5); MEAN CORPUSCULAR HEMOGLOBIN 28.4 pg (27.0-33.0); MEAN CORPUSCULAR HGB CONC 30.3 g/dl (32.0-36.5); MEAN CORPUSCULAR VOLUME 93.7 fl (80.0-96.0); PLATELET COUNT, AUTOMATED 166 10^3/uL (150-450); WHITE BLOOD COUNT 9.5 10^3/uL (4.0-10.0)
[2018-05-05 06:24] LABS: CALCIUM LEVEL 8.7 MG/DL (8.8-10.2); CREATININE FOR GFR 4.53 MG/DL (0.70-1.30); GLOMERULAR FILTRATION RATE 14.1 (>49); POTASSIUM SERUM 4.5 MEQ/L (3.5-5.1)
[2018-05-05] MEDS: HEPARIN SOD (PORCINE) 5000 UNITS/ML VIAL SC SCH (06:44)
--- NOTE | 2018-05-05 07:42 | REPVR ---
EXAM: CT Head Without Contrast EXAM DATE/TIME: 05/05/2018 6:46 AM CLINICAL HISTORY: 63 years old, male; Injury or trauma; Fall; Initial encounter; Blunt trauma (contusions or hematomas); Consciousness not specified; Additional info: Unwitnessed fall TECHNIQUE: Axial computed tomography images of the head/brain without contrast. All CT scans at this facility use at least one of these dose optimization techniques: automated exposure control; mA and/or kV adjustment per patient size (includes targeted exams where dose is matched to clinical indication); or iterative reconstruction. COMPARISON: CT Head without contrast 04/05/2018 2:52 PM FINDINGS: Brain: No CT evidence of acute cortical infarct. Hypodensity within the white matter most suggestive of chronic small vessel ischemic/gliotic change. No mass effect. No edema. There is no evidence of parenchymal hemorrhage. No extra-axial collections. No subarachnoid blood. Ventricles: Generalized atrophic change. The ventricular system is midline and appropriate in size for the degree of sulcal dilatation. No hydrocephalus. Bones/joints: There is no evidence of acute fracture. Sinuses: The demonstrated paranasal sinuses are free of air-fluid level or suspicious mass. Mastoid air cells: Imaged portions of the mastoid air cells are aerated. Soft tissues: No large soft tissue superficial hematoma. Please correlate clinically. Microvascular calcifications noted. Vasculature: There are atherosclerotic changes within the anterior and posterior circulations. IMPRESSION: No evidence of an acute intracranial injury. No intracranial hemorrhage. No CT evidence of acute cortical infarct. If there is clinical suspicion for a recent ischemic event or if otherwise clinically warranted, then MRI of the brain could be considered. Followup as clinically warranted. Nonemergent/chronic findings as described in the body of report. Electronically signed by: Osman Doyle On 05/05/2018 07:42:22 AM
[2018-05-05] MEDS: METOPROLOL SUCC (TopROL XL) 50MG **XL** TAB PO SCH (07:45)
[2018-05-05] MEDS: CLOPIDOGREL 75 MG TAB PO SCH (09:00)
[2018-05-05] MEDS: guaiFENesin ER 600 MG TAB PO SCH (09:00)
[2018-05-05] MEDS: FAMOTIDINE 20 MG TAB PO SCH (09:00)
[2018-05-05] MEDS: ASPIRIN 81 MG ENTERIC TAB PO SCH (09:00)
[2018-05-05] MEDS: FERROUS SULFATE 325MG TAB PO SCH (09:00)
[2018-05-05] MEDS: NEPHRO-VIT TAB (NEPHROCAPS) PO SCH (09:00)
[2018-05-05 10:01] LABS: ABG BASE EXCESS -3.4 (-2.0-2.0); ABG HCO3 26.8 MEQ/L (22.0-26.0); ABG O2 SATURATION 99.6 % (95.0-99.0); ABG PARTIAL PRESSURE CO2 73.3 mmHg (35.0-45.0); ABG STANDARD HCO3 21.7 MEQ/L (22.0-26.0); ABG TOTAL CO2 29.1 MEQ/L (23.0-31.0); ABG pH (ARTERIAL) 7.181 UNITS (7.350-7.450)
[2018-05-05] MEDS ORDERED: IPRATROPIUM 0.5MG/ALBUTEROL 2.5MG INH SOL UD 3ML (DUONEB)(J7620) NEB ONE (10:15)
--- NOTE | 2018-05-05 10:21 | REP ---
Portable chest x-ray: Single view. History: Decreased oxygen. Comparison study April 19, 2018. Findings: A right-sided tunnel catheter is noted in place with its tip in the expected location of the right atrium unchanged. Moderate cardiomegaly is observed. Bilateral pleural effusions are seen. No new infiltrate is noted. There is a new fracture in the right glenoid and along the lateral margin of the right scapula. This is a change from comparison radiographs. Impression: CHF pattern with small bilateral pleural effusions and cardiomegaly. No new infiltrate. Tunnel catheter remains in place. A new right scapular/glenoid fracture is seen. Electronically Signed by Aki Parson MD 05/05/2018 10:12 A
[2018-05-05 10:34] LABS: HEMATOCRIT 46.5 % (42.0-52.0); HEMOGLOBIN 14.1 g/dl (13.5-17.5); MEAN CORPUSCULAR HEMOGLOBIN 28.4 pg (27.0-33.0); MEAN CORPUSCULAR HGB CONC 30.3 g/dl (32.0-36.5); MEAN CORPUSCULAR VOLUME 93.8 fl (80.0-96.0); PLATELET COUNT, AUTOMATED 176 10^3/uL (150-450); RED BLOOD COUNT 4.96 10^6/uL (4.30-6.10); WHITE BLOOD COUNT 11.5 10^3/uL (4.0-10.0)
[2018-05-05] MEDS ORDERED: LORazepam 1 MG TAB PO PRN (10:45)
[2018-05-05] MEDS ORDERED: SCOPOLAMINE 1MG TRANSDERMAL PATCH TOP PRN (10:45)
[2018-05-05] MEDS ORDERED: MORPHINE 10MG/0.5ML ORAL CONCENTRATE SOLUTION U/D SL PRN (10:45)
[2018-05-05] MEDS ORDERED: LORazepam 2 MG/ML VIAL (J2060) IV PRN (10:45)
[2018-05-05] MEDS ORDERED: ATROPINE SULFATE 1% OP SOLN 2 ML BTL SL PRN (10:45)
[2018-05-05] MEDS ORDERED: ONDANSETRON 4MG/2ML VIAL (J2405) IV PRN (10:45)
[2018-05-05 11:13] LABS: ALBUMIN 2.7 GM/DL (3.2-5.2); BILIRUBIN,TOTAL 0.8 MG/DL (0.2-1.0); CALCIUM LEVEL 8.7 MG/DL (8.8-10.2); CREATININE FOR GFR 4.93 MG/DL (0.70-1.30); GLOMERULAR FILTRATION RATE 12.8 (>49); MB/CK RELATIVE INDEX 4.61 (< OR =4); POTASSIUM SERUM 4.8 MEQ/L (3.5-5.1); TOTAL PROTEIN 11.9 GM/DL (6.4-8.2); TROPONIN I 0.02 NG/ML (< 0.10)
[2018-05-05] MEDS: MORPHINE 4 MG/ML 1ML VIAL/SYRINGE (J2270) IV PRN ×2 (11:29→13:57)
--- NOTE | 2018-05-05 14:34 | IPNPDOC ---
Date Seen The patient was seen on 05/05/18. Progress Note Subjective: Patient tells me that he fell last night otherwise he denies shortness of breath nausea vomiting abdominal pain he has no specific complaints today Objective: Vitals (See below) General: Lying in bed awake alert no acute distress, comfortable HEENT: NC, AT CVS: RRR, +S1S2 Lungs: Fair air entry b/l diminished breath sounds at the bases with scattered rales Abdomen: Soft, non-distended Extremities: Extremities without edema, - Calf tenderness, b/l partial metatarsal amputations (dressing remains in place) Assessment and plan: Shortly after visiting the patient today I was notified that he become acutely short of breath while arguing with his aide. A rapid assessment was called to present immediately to the bedside and found the patient to be grossly hypoxic with normotension and heartbeat but decreased responsiveness and exhibited what appear to be almost agonal breathing. We immediately placed the patient on a nonrebreather and confirmed his CODE STATUS is DNR/DNI. I did call his Lian Lengthy conversation with her updating her on the change in his clinical status as being rather acute she did confirm that he wishes to be a DNR/DNI form should present to the bedside as soon as possible. We did check a chest x-ray arterial blood gas as well as EKG CBC CMP lactic acid and troponin. It appears though the patient had been retaining PCO2 and was in pulmonary edema he did have some lateral ST depressions concerning for a coronary event versus demand ischemia related to the hypoxia. The patient did begin to drop his blood pressures despite receiving some IV fluids I did speak with nephrology who did not feel he was a candidate for any emergent hemodialysis when his Lian did present bedside I did have a lengthy discussion with her regarding the last month of his hospital course his poor progress and now his recent decline she elected for comfort measures only with no further BiPAP hemodialysis transfer to the ICU attempts at diuresis blood draws vital signs checks all QUESTIONS were answered to her satisfaction and will form is completed signed witnessed. To nursing staff members and placed in the chart to comfort measures only orders set was entered. We'll continue to follow along and provide comfort this best capable VS, I&O, 24H, Fishbone Vital Signs/I&O Vital Signs Date Time Temp Pulse Resp B/P (MAP) Pulse Ox O2 Delivery O2 Flow Rate FiO2 05/05/18 11:32 77 80/45 100 Non-Rebreather 05/05/18 10:28 3.0 05/05/18 06:25 96.6 22 I&O- Last 24 Hours up to 6 AM 05/05/18 06:00 Intake Total 578 ml Output Total 1500 ml Balance -922 ml Laboratory Data 24H LABS Laboratory Tests 2 05/04/18 16:22: Bedside Glucose (Misc Panel) 78L 05/05/18 00:02: Bedside Glucose (Misc Panel) 103 05/05/18 05:41: Nucleated Red Blood Cells % (auto) 0.0, Anion Gap 9, Glomerular Filtration Rate 14.1L, Blood Urea Nitrogen 18, Creatinine 4.53H, Sodium Level 132L, Potassium Level 4.5, Chloride Level 97L, Carbon Dioxide Level 26, Calcium Level 8.7L 05/05/18 06:05: Bedside Glucose (Misc Panel) 97 05/05/18 09:51: Blood Gas Bicarbonate Standard 21.7L, Arterial Blood pH 7.181*L, Arterial Blood Partial Pressure CO2 73.3*H, Arterial Blood Partial Pressure O2 187.0H, Arterial Blood Total CO2 29.1, Arterial Blood HCO3 26.8H, Arterial Blood Base Excess - 3.4L, Arterial Blood Oxygen Saturation 99.6H 05/05/18 10:22: Nucleated Red Blood Cells % (auto) 0.0, Lactic Acid Level 2.1*H 05/05/18 10:23: Anion Gap 6L, Glomerular Filtration Rate 12.8L, Blood Urea Nitrogen 22H, Creatinine 4.93H, Sodium Level 131L, Potassium Level 4.8, Chloride Level 97L, Carbon Dioxide Level 28, Calcium Level 8.7L, Aspartate Amino Transf (AST/SGOT) 40H, Alanine Aminotransferase (ALT/SGPT) 17, Lactate Dehydrogenase 214, Total Creatine Kinase 89, Alkaline Phosphatase 291H, Total Bilirubin 0.8, Total Protein 11.9H, Albumin 2.7L, Creatine Kinase MB 4.0H, Creatine Kinase MB Relative Index 4.61H, Troponin I 0.02, Albumin/Globulin Ratio 0.29L CBC/BMP Laboratory Tests 05/05/18 05:41 Red Blood Count 5.10, Mean Corpuscular Volume 93.7, Mean Corpuscular Hemoglobin 28.4, Mean Corpuscular Hemoglobin Concent 30.3 L, Red Cell Distribution Width 17.2 H, Calcium Level 8.7 L 05/05/18 10:22 Red Blood Count 4.96, Mean Corpuscular Volume 93.8, Mean Corpuscular Hemoglobin 28.4, Mean Corpuscular Hemoglobin Concent 30.3 L, Red Cell Distribution Width 17.3 H 05/05/18 10:23 Calcium Level 8.7 L, Aspartate Amino Transf (AST/SGOT) 40 H, Alanine Aminotransferase (ALT/SGPT) 17, Lactate Dehydrogenase 214, Total Creatine Kinase 89, Alkaline Phosphatase 291 H, Total Bilirubin 0.8, Total Protein 11.9 H, Albumin 2.7 L АННА FELIZ MD May 05, 2018 14:34
--- NOTE | 2018-05-05 16:01 | ECGEPIP ---
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
--- NOTE | 2018-05-06 10:24 | IPN ---
DATE OF SERVICE: 05/05/2018 SUBJECTIVE: The patient was seen and examined at the bedside today morning. Today morning events were noted. Patient was found to be having labored breathing and altered mental status. He got the chest x-ray and ABG done. ABG showed that the patient was in hypercapnic respiratory failure. The patient was just dialyzed yesterday and at that time he tolerated the hemodialysis procedure well and 1.5 liters of fluid was removed. The patient is gasping for breath at this point, eyes are half closed. His current status was discussed by the primary team, with the patient's , and decided not to do any heroic measures or further interventions at this point. 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 OBJECTIVE: VITAL SIGNS: Temperature is 96.6 degrees Fahrenheit, latest blood pressure is 80/45, pulse is 77, respiratory rate of 12, saturating 100% on nonrebreather. INTAKE AND OUTPUT: Ultrafiltration with hemodialysis was 1.5 liters yesterday. Weight on the bed scale is 53.4 kg. PHYSICAL EXAMINATION: GENERAL: Patient very obtunded, gasping off and on, currently wearing nasal cannula. HEAD AND NECK EXAM: Pupils equally round and reactive to light. Mucous membranes are moist. He is wearing nasal cannula. Neck is supple. He has a right IJ tunneled hemodialysis catheter. CARDIOVASCULAR: S1, S2. Bradycardia. RESPIRATORY: Decreased inspiratory effort. Decreased breath sounds at the bases, otherwise no active rales or rhonchi. ABDOMEN: Soft, scaphoid. Positive bowel sounds. GENITOURINARY (): No hernia noted. Bladder was not palpable. MUSCULOSKELETAL: Both feet are covered with bandages and they have transmetatarsal amputations. CENTRAL NERVOUS SYSTEM: Patient is obtunded, drowsy, does not follow commands, and intermittently gasping for breath. LAB REVIEW: CBC showed a WBC of 11.5, hemoglobin 14.1, platelets of 176. BMP showed sodium 131, potassium 4.8, chloride 97, bicarb 28, BUN 22, creatinine is 4.9. Lactic acid 2.1, calcium 8.7. AST 40, ALT is 17, alkaline phosphatase is 291. Albumin 2.7. IMAGING: Chest x-ray done today morning showed congestive heart failure (CHF) pattern with small bilateral pleural effusions and cardiomegaly. No new infiltrate. CT scan of the head was done which showed no evidence of acute intracranial pathology. CURRENT INPATIENT MEDICATIONS: Looking at the patient's medications, I see that his therapeutic medications have all been stopped. He is getting morphine as needed, Zofran and he has a scopolamine patch. ASSESSMENT: 63-year-old male with end stage renal disease on hemodialysis, multiple comorbidities, prolonged hospitalization, infected bilateral lower extremity transmetatarsal amputations. At this point he is in respiratory distress and hypercapnic respiratory failure. PLAN: The patient's plan of care was also ready discussed by the hospitalist, Dr. Christophe Villa with the patient's who is present at the bedside. 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 Therapeutic medications have been stopped. He is getting morphine for comfort. He has gotten a scopolamine patch as well. is eminent. The patient would not receive anymore hemodialysis from nephrology standpoint. Nephrology services are going to sign off at this moment.
--- NOTE | 2018-05-06 14:44 | DSES ---
DATE OF ADMISSION: 04/05/2018 DATE OF : 05/05/2018 CAUSE OF : Congestive heart failure (CHF). SECONDARY DIAGNOSES: 1. Pulmonary edema related to end stage renal disease, on hemodialysis. 2. Chronic osteomyelitis of the lower extremities. 3. Peripheral vascular disease. 4. Acute on chronic metabolic encephalopathy. 5. Delirium. 6. Systolic congestive heart failure (CHF). 7. Coronary artery disease. 8. Normocytic anemia. 9. Gastroesophageal reflux disease (GERD). 10. Medical noncompliance. CONSULTATIONS: Nephrology. HOSPITAL COURSE: The patient was a 63-year-old male with chronic lower extremity ulcers, status post amputations, who had been noncompliant with treatment for osteomyelitis in the outpatient setting. He had been following with Dr. Ball of infectious disease. He presented with confusion. He was treated. He completed a course of antibiotics while hospitalized. He was intermittently compliant, refusing care. He did gradually improve to the point where we considered dispositioning him to penitentiary facility; however, he and his declined this. He was also offered subacute rehabilitation, which they both adamantly declined. He remained in the hospital in a very fragile state. His goal was to only return home. He was able to demonstrate transition with the slide board, however, he never became well enough in order to be dispositioned home. I had a lengthy conversation with the patient's throughout his course that his prognosis was quite poor due to his noncompliance. On the date of 05/05/2018, he began to have worsening respiratory status and was found to be in hypercarbic respiratory failure likely secondary to fluid retention and pulmonary edema, despite having 1.5 liters fluid removed the day prior. His blood pressures were quite low and he was minimally responsive. I did contact his , Lian, and the patient did have a preexisting DO NOT RESUSCITATE, DO NOT INTUBATE. Given his poor prognosis and his lack of improvement and his clinical decline, medical noncompliance and lack of interest in life prolonging measures expressed prior to this event, his elected for comfort measures only. Medical Orders for Life Sustaining Treatment (MOLST) form was completed and, witnessed by nursing staff and myself, and was placed on the chart. She was notified by phone first and then presented to the bedside for further discussion and had all of her questions answered to her satisfaction. Family was notified. He did at 2:56 p.m. All efforts were made to keep him comfortable.
== END 2018-05-05 14:56 | disposition expired | DRG 291 ==
LOC: M ED 12:38 → EDBD 12:38 → M ED INP 17:37 → M PCU 20:34 → M MSPAV 04-08 14:59
PROVIDERS: ADMIT Internal Medicine; ATTEND Internal Medicine
DX: I13.2 Hypertensive heart and chronic kidney disease with heart failure and with stage 5 chronic kidney disease, or end stage renal disease (principal); N18.6 End stage renal disease; G93.41 Metabolic encephalopathy; J96.02 Acute respiratory failure with hypercapnia; I50.21 Acute systolic (congestive) heart failure; M86.60 Other chronic osteomyelitis, unspecified site; N25.81 Secondary hyperparathyroidism of renal origin; D61.818 Other pancytopenia; Z91.19 Patient's noncompliance with other medical treatment and regimen; K21.9 Gastro-esophageal reflux disease without esophagitis; I25.10 Atherosclerotic heart disease of native coronary artery without angina pectoris; D50.9 Iron deficiency anemia, unspecified; I70.25 Atherosclerosis of native arteries of other extremities with ulceration; Z66 Do not resuscitate; Z79.82 Long term (current) use of aspirin; Z79.899 Other long term (current) drug therapy; Z88.8 Allergy status to other drugs, medicaments and biological substances; E11.649 Type 2 diabetes mellitus with hypoglycemia without coma; E78.5 Hyperlipidemia, unspecified; D63.1 Anemia in chronic kidney disease; E87.5 Hyperkalemia; Z51.5 Encounter for palliative care